=== PATIENT | male | born 1945 ===

== ENCOUNTER 2016-06-08 08:41 | Emergency (ER) | payer MEDICARE ==
[2016-06-08 08:41] VITALS: BMI 29.7
[2016-06-08 08:54] VITALS: O2SAT 98
[2016-06-08] MEDS ORDERED: Albuterol-Ipratrop 3 mg / 0.5 (3 ml) UD INH STA ×2 (09:09→10:42)
[2016-06-08] MEDS ORDERED: Albuterol-Ipratrop 3 mg / 0.5 (3 ml) UD ONE ×2 (09:25→10:55)
[2016-06-08 09:35] LABS: ABG ALLEN TEST POS; ARTERIAL BLOOD HGB O2 SAT 96.3 % (95.0-98.0); DRAW SITE RRA; HHB 2.5 % (0.0-5.0); METHEMOGLOBIN 0.2 % (0.0-3.0)
[2016-06-08 09:47] LABS: BASO # 0.1 K/uL (0.0-0.2); BASO % 0.6 % (0.0-2.0); EOS % 0.1 % (0.0-4.0); LYMPH # 0.4 K/uL (1.0-4.3); LYMPH % 3.5 % (20.0-40.0); MEAN CELL VOLUME 81.3 fL (80.0-94.0); MEAN CORPUSCULAR HEMOGLOBIN 25.3 pg (27.0-31.0); MEAN CORPUSCULAR HGB CONC 31.2 g/dL (33.0-37.0); MEAN PLATELET VOLUME 8.5 fL (7.2-11.7); MONO # 0.4 K/uL (0.0-0.8); MONO % 3.6 % (0.0-10.0); PLATELET COUNT 213 K/uL (130-400); RED CELL DISTRIBUTION WIDTH 16.2 % (11.5-14.5); WHITE BLOOD COUNT 12.4 K/uL (4.8-10.8)
--- NOTE | 2016-06-08 09:51 | RAD ---
PROCEDURE: CHEST RADIOGRAPH, 1 VIEW HISTORY: SOB COMPARISON: 11/10/2015 FINDINGS: LUNGS: Clear. PLEURA: No pneumothorax or pleural fluid seen. CARDIOVASCULAR: Normal. OSSEOUS STRUCTURES: No significant abnormalities. VISUALIZED UPPER ABDOMEN: Normal. OTHER FINDINGS: None. IMPRESSION: No active disease.
[2016-06-08 09:55] LABS: CHLORIDE 97 mmol/L (98-107); POTASSIUM 4.4 mmol/L (3.6-5.2); SODIUM 138 mmol/L (132-148)
[2016-06-08 09:57] LABS: AST/SGOT 23 U/L (17-59); BILIRUBIN,TOTAL 0.3 mg/dL (0.2-1.3); CARBON DIOXIDE 27 mmol/L (22-30); GFR AFRICAN-AMERICAN > 60
[2016-06-08 09:58] LABS: ALB/GLOB RATIO 1.4 (1.0-2.1); ALKALINE PHOSPHATASE 58 U/L (38-126); ALT/SGPT 31 U/L (21-72); BLOOD UREA NITROGEN 17 mg/dL (9-20); CALCIUM 8.6 mg/dl (8.6-10.4); GLUCOSE,RANDOM 192 mg/dL (75-110); TOTAL PROTEIN 6.7 g/dL (6.3-8.3)
[2016-06-08 10:04] LABS: NEUTROPHIL 86 % (50-75); REACTIVE LYMPHOCYTES 3 % (0-0); TOTAL CELLS COUNTED 100
--- NOTE | 2016-06-08 10:51 | C.PDOC ---
History Of Present Illness 70-year-old male, presents to the emergency department with complaints of worsening shortness of breath, wheezing and cough x3 days. Pt is using home O2 as needed. States she had one nebulizer treatment prior to arrival with minimal relief, resulting in her coming to the ED for evaluation. Time Seen by Provider: 06/08/16 09:05 Chief Complaint (Nursing): Shortness Of Breath History Per: Patient History/Exam Limitations: no limitations Onset/Duration Of Symptoms: Days Current Symptoms Are (Timing): Still Present Past Medical History Reviewed: Historical Data, Nursing Documentation, Vital Signs Vital Signs: Last Vital Signs Temp 98 F 06/08/16 11:32 Pulse 105 H 06/08/16 11:16 Resp 20 06/08/16 11:16 BP 125/68 06/08/16 11:16 Pulse Ox 98 06/08/16 11:16 - Medical History PMH: Anxiety (NO MED), Asthma, Bronchitis, CHF, COPD, Diabetes, Gastritis, HTN, Hypercholesterolemia Denies: Hypothyroidism, Chronic Kidney Disease Surgical History: Endoscopy Denies: Coronary Stent - [facility] Procedures ASSISTANCE WITH RESPIRATORY VENTILATION, 24-96 HRS, CPAP (02/23/15) CORONAR ARTERIOGR-2 CATH (12/28/12) LEFT HEART CARDIAC CATH (12/28/12) LT HEART ANGIOCARDIOGRAM (12/28/12) NEBULIZER THERAPY (02/17/13) NON-INVASIVE MECHANICAL VENTILATION (10/25/14) Family History: States: Unknown Family Hx - Social History Hx Tobacco Use: Yes Hx Alcohol Use: No Hx Substance Use: No - Immunization History Hx Tetanus Toxoid Vaccination: No Hx Influenza Vaccination: Yes Hx Pneumococcal Vaccination: Yes Review Of Systems Except As Marked, All Systems Reviewed And Found Negative. Constitutional: Negative for: Fever, Chills Respiratory: Negative for: Cough, Shortness of Breath Physical Exam - Physical Exam Appears: Non-toxic, No Acute Distress, Other (OBESE) Skin: Warm, Dry, No Rash Head: Atraumatic, Normacephalic Eye(s): bilateral: Normal Inspection, PERRL Nose: Normal Oral Mucosa: Moist Lips: Normal Appearing Neck: Normal ROM Chest: Symmetrical Cardiovascular: Rhythm Regular Respiratory: No Accessory Muscle Use, Rhonchi (scattered), Wheezing (diffuse) Extremity: Normal ROM, No Pedal Edema Neurological/Psych: Oriented x3, Normal Speech ED Course And Treatment - Laboratory Results Result Diagrams: 06/08/16 09:43 06/08/16 09:43 Lab Interpretation: Normal (abg wnl for COPD) ECG: Interpreted By Me ECG Rhythm: Sinus Rhythm, Sinus Tachycardia ECG Interpretation: Abnormal Rate From EC O2 Sat by Pulse Oximetry: 98 Pulse Ox Interpretation: Normal - Radiology CXR: Interpreted by Me CXR Interpretation: Yes: No Acute Disease, Other (hyperinflation) Reevaluation Time: 10:51 Reassessment Condition: Improved Medical Decision Making Medical Decision Making: self-administering albuterol TID, encouraged to increase to 2 amps of Duoneb Q3- 4 hours. lungs clear on CXR, abg wnl, adamantly refuses inpatient treatment. has f/u with Dr. Palomino already scheduled in 3 days. long prednisone taper, azithromycin started in ED Disposition Doctor Will See Patient In The: Office Counseled Patient/Family Regarding: Studies Performed, Diagnosis - Disposition Referrals: Romero Palomino MD [Staff Provider] - Sofie Odom MD [Staff Provider] - Disposition: HOME/ ROUTINE Disposition Time: 10:55 Condition: GOOD Additional Instructions: Take prednisone 60 mg daily for 4 days until you follow-up with Dr. Candelario Ennis nebulizer treatments with TWO ampules of Duoneb every 3-4 hours while home. Azithromycin 250 mg daily for 4 days- you received 500 mg in the ED Return to the ED if your symptoms worsten. Prescriptions: Prednisone [Deltasone] 40 mg PO DAILY #8 tablet Albuterol/Ipratropium [Duoneb 3 MG/3 Ml-0.5 MG/3 Ml 3 Ml] 6 ml IH Q4H PRN #100 neb PRN Reason: asthma Famotidine [Pepcid] 20 mg PO HS #20 tab Azithromycin [Zithromax] 250 mg PO DAILY #4 tab Instructions: COPD (Chronic Obstructive Pulmonary Disease) (ED) - Clinical Impression Clinical Impression: COPD exacerbation - Scribe Statement The provider has reviewed the documentation as recorded by the Scribe Stacy Leach All medical record entries made by the Scribe were at my direction and personally dictated by me. I have reviewed the chart and agree that the record accurately reflects my personal performance of the history, physical exam, medical decision making, and the department course for this patient. I have also personally directed, reviewed, and agree with the discharge instructions and disposition.
[2016-06-08 11:17] VITALS: BP 125/68; PULSE 105; RESP 20
[2016-06-08 11:32] VITALS: TEMP 98
--- NOTE | 2016-06-09 11:42 | CARD ---
APPROVED REPORT EKG Measurement Heart [id number] <Conclusion> Sinus tachycardia Otherwise normal ECG
== END 2016-06-08 11:56 | disposition home or self-care (01) ==
LOC: C.ER 08:41
DX: J44.1 Chronic obstructive pulmonary disease with (acute) exacerbation (principal)
CPT/HCPCS: 36600; 71010; 80053; 82803; 83880; 84484; 85025; 93005; 94640; 96374; 99284; J2930

== ENCOUNTER 2018-03-28 10:50 | Inpatient (IN) | payer MEDICARE ==
[2018-03-28 10:50] VITALS: BMI 29.7
[2018-03-28] MEDS ORDERED: Albuterol-Ipratrop 3 mg / 0.5 (3 ml) UD ONE ×3 (11:30→23:07)
[2018-03-28] MEDS ORDERED: Albuterol 0.083% Inhal Sol (2.5 mg/3 mL) UD IH STA ×2 (11:37→14:29)
--- NOTE | 2018-03-28 11:58 | C.PDOC ---
History Of Present Illness 72 y/o male,w/PMhx of asthma,CHF, and COPD, presents to the ER complaining of non-productive cough, shortness of breath, wheezing,and chest tightness, which has been present for the past 3 days. Patient is also complaining of abdominal distention for the past 3 days. Denies having fever, chills, vomiting, diarrhea, and dysuria. Time Seen by Provider: 03/28/18 11:03 Chief Complaint (Nursing): Shortness Of Breath History Per: Patient History/Exam Limitations: no limitations Onset/Duration Of Symptoms: Days Current Symptoms Are (Timing): Still Present Severity: Moderate Past Medical History Reviewed: Historical Data, Nursing Documentation, Vital Signs - Medical History PMH: Anxiety, Asthma, Bronchitis, CHF, COPD, Diabetes, Gastritis, HTN, Hypercholesterolemia Denies: Hypothyroidism, Chronic Kidney Disease Surgical History: Endoscopy Denies: Coronary Stent - [facility] Procedures ASSISTANCE WITH RESPIRATORY VENTILATION, 24-96 HRS, CPAP (02/23/15) CORONAR ARTERIOGR-2 CATH (12/28/12) LEFT HEART CARDIAC CATH (12/28/12) LT HEART ANGIOCARDIOGRAM (12/28/12) NEBULIZER THERAPY (02/17/13) NON-INVASIVE MECHANICAL VENTILATION (10/25/14) Family History: States: No Known Family Hx - Social History Hx Tobacco Use: Yes Hx Alcohol Use: No Hx Substance Use: No - Immunization History Hx Tetanus Toxoid Vaccination: No Hx Influenza Vaccination: Yes Hx Pneumococcal Vaccination: Yes Review Of Systems Except As Marked, All Systems Reviewed And Found Negative. Constitutional: Negative for: Fever, Chills Respiratory: Positive for: Cough, Shortness of Breath, Wheezing Gastrointestinal: Positive for: Other (abdominal distention). Negative for: Nausea, Vomiting Genitourinary: Negative for: Dysuria, Hematuria Physical Exam - Physical Exam Appears: Other (speaking in full sentences) Skin: Normal Color, Warm, Dry Head: Atraumatic, Normacephalic Eye(s): bilateral: Normal Inspection Nose: Normal Oral Mucosa: Moist Neck: Supple Chest: Symmetrical Cardiovascular: Rhythm Regular (with tachycardia) Respiratory: No Rales, No Rhonchi, Wheezing (mild bilateral expiratory wheezing) Gastrointestinal/Abdominal: Soft, No Tenderness, Distention (mild distention), No Guarding, No Rebound, Other (obese) Neurological/Psych: Oriented x3, Normal Speech ED Course And Treatment - Laboratory Results Result Diagrams: 03/28/18 12:16 03/28/18 12:16 ECG: Interpreted By Me, Viewed By Me ECG Rhythm: Sinus Tachycardia Interpretation Of ECG: Sinus Tachycardia with normal axises, Q waves in Leads I, II,III, and AVF, no acute ST or T wave changes Rate From EC - CT Scan/US ct abd/pelvis Other Rad Studies (CT/US): Read By Radiologist, Radiology Report Reviewed CT/US Interpretation: Accession No. : [id number]. Patient Name / ID : MIKEY CALLAHAN / [id number]. Exam Date : 03/28/2018 14:59:07 ( Approved ). Study Comment : Sex / Age : M / 72Y. Creator : Rosa Morel. Dictator : Shabnam Burns MD. Fitness Instructor : Rd Mechanical Engineer : Shabnam Burns MD. Approver2 : Report Date : 03/28/2018 15:07:56. My Comment : . Date of service: 03/28/2018. CT chest, abdomen, and pelvis without IV contrast. Indication: SOB, ABDOMINAL DISTENSION. Technique: Contiguous axial images of the chest, abdomen, and pelvis without oral or IV contrast. Coronal and Sagittal reformats generated and reviewed. This CT exam was performed using 1 or more of the following dose reduction techniques: Automated exposure control, adjustment of the MAA and/or kV according to patient size, and/or use of iterative reconstruction technique. Radiation dose: Total exam DLP = 1069.94 MGy-cm. Comparison: CT abdomen and pelvis without contrast performed 12/12/19, CTA chest performed 02/24/16. Findings: Visualized portions of the inferior thyroid gland appear unremarkable. The unenhanced mediastinal and hilar vascular structures appear grossly unremarkable. The heart appears within normal limits of size. Dense coronary artery calcifications. Atherosclerotic calcifications of the aorta. Emphysematous changes. Mild bibasilar atelectasis. No pleural effusion. No pneumothorax. Punctate right lower lobe calcified granuloma. Hypoattenuation of the liver compatible with hepatic steatosis. The noncontrast spleen, kidneys, pancreas, adrenal glands, and gallbladder appear unremarkable. The stomach is nondistended. Lack of oral contrast limits evaluation for bowel pathology. The bowel loops appear within normal limits of caliber without evidence of intestinal obstruction. Diverticulosis without CT evidence of acute diverticulitis. The there is no definite free air. The prostate gland measures approximately 3.8 x 3.1 cm. The urinary bladder appears unremarkable. Small fat containing bilateral hernias. Degenerative changes. Mild scoliosis of the lumbar spine convex to the left. Bilateral L5 spondylolysis. Impression: Emphysematous changes. Bibasilar atelectasis. Hypoattenuation of the liver compatible with hepatic steatosis. Extensive diverticulosis without CT evidence of acute diverticulitis. Small fat co ntaining bilateral inguinal hernias. Bilateral L5 spondylolysis. Additional findings as above. Progress Note: Labs, CT-Chest& Abd, X-Ray- Abd Obs Series ordered. Patient brittany ated with Albuterol, Decadron IM, and Solu-Medrol IV. Disposition - Disposition - Scribe Statement The provider has reviewed the documentation as recorded by the Vince Bertrand Provider Attestation: All medical record entries made by the Scribe were at my direction and persona lly dictated by me. I have reviewed the chart and agree that the record accurately reflects my personal performance of the history, physical exam, medical decision making, and the department course for this patient. I have also personally directed, reviewed, and agree with the discharge instructions and disposition.
[2018-03-28] MEDS ORDERED: Dexamethasone 4 mg/1 ml IM STA (12:00)
[2018-03-28] MEDS ORDERED: Albuterol 0.083% Inhal Sol (2.5 mg/3 mL) UD ONE ×2 (12:02→14:45)
--- NOTE | 2018-03-28 12:14 | RAD ---
Date of service: 03/28/2018 PROCEDURE: Radiographs of the chest and abdomen (obstructive series) HISTORY: Shortness of breath and abdominal distension. COMPARISON: No prior. TECHNIQUE: AP radiograph of the chest, with upright and supine radiographs of the abdomen. FINDINGS: CHEST: Lungs: Clear. Cardiovascular: Normal size heart. No pulmonary vascular congestion. No aortic atherosclerotic calcification present Pleura: No pleural fluid. No pneumothorax. Other findings: None. ABDOMEN AND PELVIS: Bowel: Constipation without fecal impaction or obstruction. Free air: None. Bones: Unremarkable. Other findings: None. IMPRESSION: No acute findings related to/ accounting for the clinical presentation.
[2018-03-28 12:19] LABS: BASO % 0.2 % (0.0-2.0); HEMOGLOBIN 11.8 g/dL (12.0-18.0); LYMPH # 0.3 K/uL (1.0-4.3); LYMPH % 2.3 % (20.0-40.0); MEAN CELL VOLUME 81.9 fL (80.0-94.0); MEAN CORPUSCULAR HEMOGLOBIN 25.7 pg (27.0-31.0); MEAN CORPUSCULAR HGB CONC 31.4 g/dL (33.0-37.0); MEAN PLATELET VOLUME 8.2 fL (7.2-11.7); MONO # 0.5 K/uL (0.0-0.8); MONO % 4.3 % (0.0-10.0); NEUT # 11.2 K/uL (1.8-7.0); NEUT % 93.2 % (50.0-75.0); PLATELET COUNT 280 K/uL (130-400); RBC 4.59 Mil/uL (4.40-5.90); RED CELL DISTRIBUTION WIDTH 17.7 % (11.5-14.5); WHITE BLOOD COUNT 12.1 K/uL (4.8-10.8)
[2018-03-28 12:33] LABS: ALB/GLOB RATIO 1.8 (1.0-2.1); ALBUMIN 4.3 g/dL (3.5-5.0); ALT/SGPT 47 U/L (21-72); AST/SGOT 32 U/L (17-59); BLOOD UREA NITROGEN 18 mg/dL (9-20); CALCIUM 8.7 mg/dl (8.6-10.4); GFR NON-AFRICAN AMERICAN > 60
[2018-03-28 12:39] LABS: LYMPHOCYTE 4 % (20-40); MONOCYTE 5 % (0-10); MYELOCYTE 1 % (0-0); NEUTROPHIL 90 % (50-75); PLATELET ESTIMATE NORMAL (NORMAL); TOTAL CELLS COUNTED 100
[2018-03-28 12:40] LABS: ANISOCYTOSIS SLIGHT; HYPOCHROMIC SLIGHT; OVALOCYTES SLIGHT; POIKILOCYTOSIS SLIGHT
[2018-03-28 12:44] LABS: B-TYPE NATRIURETIC PEPTIDE 101 pg/mL (0-900)
[2018-03-28] MEDS ORDERED: Albuterol-Ipratrop 3 mg / 0.5 (3 ml) UD INH STA (14:30)
--- NOTE | 2018-03-28 16:24 | CT ---
Date of service: 03/28/2018 CT chest, abdomen, and pelvis without IV contrast Indication: SOB, ABDOMINAL DISTENSION Technique: Contiguous axial images of the chest, abdomen, and pelvis without oral or IV contrast. Coronal and Sagittal reformats generated and reviewed. This CT exam was performed using 1 or more of the following dose reduction techniques: Automated exposure control, adjustment of the MAA and/or kV according to patient size, and/or use of iterative reconstruction technique. Radiation dose: Total exam DLP = 1069.94 MGy-cm. Comparison: CT abdomen and pelvis without contrast performed 12/12/19, CTA chest performed 02/24/16 Findings: Visualized portions of the inferior thyroid gland appear unremarkable. The unenhanced mediastinal and hilar vascular structures appear grossly unremarkable. The heart appears within normal limits of size. Dense coronary artery calcifications. Atherosclerotic calcifications of the aorta. Emphysematous changes. Mild bibasilar atelectasis. No pleural effusion. No pneumothorax. Punctate right lower lobe calcified granuloma. Hypoattenuation of the liver compatible with hepatic steatosis. The noncontrast spleen, kidneys, pancreas, adrenal glands, and gallbladder appear unremarkable. The stomach is nondistended. Lack of oral contrast limits evaluation for bowel pathology. The bowel loops appear within normal limits of caliber without evidence of intestinal obstruction. Diverticulosis without CT evidence of acute diverticulitis. The there is no definite free air. The prostate gland measures approximately 3.8 x 3.1 cm. The urinary bladder appears unremarkable. Small fat containing bilateral hernias. Degenerative changes. Mild scoliosis of the lumbar spine convex to the left. Bilateral L5 spondylolysis. Impression: Emphysematous changes. Bibasilar atelectasis. Hypoattenuation of the liver compatible with hepatic steatosis. Extensive diverticulosis without CT evidence of acute diverticulitis. Small fat containing bilateral inguinal hernias. Bilateral L5 spondylolysis. Additional findings as above.
[2018-03-28 17:05] LABS: URINE BILIRUBIN NEGATIVE (NEGATIVE); URINE BLOOD 1+ (NEGATIVE); URINE CLARITY Clear (Clear); URINE COLOR Yellow (YELLOW); URINE GLUCOSE (UA) 2+ mg/dL (Normal); URINE LEUKOCYTE ESTERASE NEG Leu/uL (Negative); URINE PROTEIN NEGATIVE (NEGATIVE); URINE UROBILINOGEN NORMAL mg/dL (0.2-1.0)
[2018-03-28] MEDS: Albuterol-Ipratrop 3 mg / 0.5 (3 ml) UD IH PRN (19:06)
[2018-03-28] MEDS: Azithromycin 500 MG in Sodium Chloride 0.9% 250 ML IVPB SCH (19:45)
[2018-03-28] MEDS: guaiFENesin 600 mg ER Tab PO SCH (19:45)
--- NOTE | 2018-03-28 20:39 | CP.PCM.HP ---
Present on Admission - Present on Admission Any Indicators Present on Admission: Yes History of Uncontrolled Diabetes: Yes Past Patient History - Infectious Disease Hx of Infectious Diseases: None - Tetanus Immunizations Tetanus Immunization: Unknown - Past Medical History & Family History Past Medical History?: Yes - Past Social History Smoking Status: Former Smoker - CARDIAC Hx Congestive Heart Failure: Yes Hx Hypercholesterolemia: Yes Hx Hypertension: Yes - PULMONARY Hx Asthma: Yes Hx Bronchitis: Yes Hx Chronic Obstructive Pulmonary Disease (COPD): Yes - NEUROLOGICAL Hx Neurological Disorder: No - HEENT Hx HEENT Problems: No - RENAL Hx Chronic Kidney Disease: No - ENDOCRINE/METABOLIC Hx Hypothyroidism: No - HEMATOLOGICAL/ONCOLOGICAL Hx Blood Disorders: No - INTEGUMENTARY Hx Dermatological Problems: No - MUSCULOSKELETAL/RHEUMATOLOGICAL Hx Musculoskeletal Disorders: No - GASTROINTESTINAL Hx Gastritis: Yes - GENITOURINARY/GYNECOLOGICAL Hx Genitourinary Disorders: No - PSYCHIATRIC Hx Anxiety: Yes Hx Substance Use: No - SURGICAL HISTORY Hx Coronary Stent: No - ANESTHESIA Hx Anesthesia: Yes Hx Anesthesia Reactions: No Hx Malignant Hyperthermia: No Meds Allergies/Adverse Reactions: Allergies Allergy/AdvReac Type Severity Reaction Status Date / Time SEASONAL Allergy Uncoded 06/08/16 08:47 Results - Vital Signs Recent Vital Signs: Last Vital Signs Temp 97.3 F L 03/28/18 16:48 Pulse 110 H 03/28/18 19:34 Resp 24 03/28/18 19:34 BP 141/62 03/28/18 19:34 Pulse Ox 94 L 03/28/18 19:34 - Labs Result Diagrams: 03/28/18 12:16 03/28/18 12:16 Labs: Laboratory Results - last 24 hr 03/28/18 03/28/18 03/28/18 12:16 12:16 16:10 WBC 12.1 H RBC 4.59 Hgb 11.8 L Hct 37.6 MCV 81.9 MCH 25.7 L MCHC 31.4 L RDW 17.7 H Plt Count 280 MPV 8.2 Neut % (Auto) 93.2 H Lymph % (Auto) 2.3 L [place] % (Auto) 4.3 Eos % (Auto) 0.0 Baso % (Auto) 0.2 Neut # (Auto) 11.2 H Lymph # (Auto) 0.3 L [place] # (Auto) 0.5 Eos # (Auto) 0.0 Baso # (Auto) 0.0 Neutrophils % (Manual) 90 H Lymphocytes % (Manual) 4 L Monocytes % (Manual) 5 Myelocytes % 1 H Platelet Estimate Normal Hypochromasia (manual) Slight Poikilocytosis (manual Slight Anisocytosis (manual) Slight Ovalocytes Slight Sodium 138 Potassium 4.6 Chloride 99 Carbon Dioxide 29 Anion Gap 15 BUN 18 Creatinine 1.0 Est GFR ( Amer) > 60 Est GFR (Non-Af Amer) > 60 Random Glucose 252 H D Calcium 8.7 Total Bilirubin 0.4 AST 32 ALT 47 Alkaline Phosphatase 62 Total Creatine Kinase 242 H CK-MB (Mass) 1.70 Troponin I < 0.0120 NT-Pro-B Natriuret Pep 101 Total Protein 6.6 Albumin 4.3 Globulin 2.3 Albumin/Globulin Ratio 1.8 Urine Color Yellow Urine Clarity Clear Urine pH 6.0 Ur Specific [place] 1.016 Urine Protein Negative Urine Glucose (UA) 2+ H Urine Ketones Negative Urine Blood 1+ H Urine Nitrate Negative Urine Bilirubin Negative Urine Urobilinogen Normal Ur Leukocyte Esterase Neg Urine WBC (Auto) < 1 Urine RBC (Auto) 1
[2018-03-28] MEDS ORDERED: MethylPREDNISolone 40 mg Vial ONE ×2 (23:08→23:10)
[2018-03-28] MEDS: MethylPREDNISolone 40 mg Vial IV SCH (23:13)
[2018-03-28] MEDS: (Novolin R) Insulin Human Regular 100 units/ml vial SC SCH (23:16)
[2018-03-28] MEDS ORDERED: (Novolin R) Insulin Human Regular 100 units/ml vial ONE (23:19)
--- NOTE | 2018-03-29 06:21 | HP ---
CHIEF COMPLIANT: Shortness of breath for two days. HISTORY OF PRESENT ILLNESS: This is a 72-year-old male with history of COPD, type 2 diabetes, hypertension, and hyperlipidemia. He is compliant with his diet, medication, and followup. He is on home oxygen and nebulizer at home. He is being followed up by Dr. Shelton in [place], and he has been complaint up until three days ago, he started having progressively getting a worse cough, congestion, shortness of breath, and wheezing. He started to use his oxygen and nebulizer treatment with no response. Cough with productive of white sputum production. The patient is having difficulty bringing up sputum. He denies any fever, chills, or rigor. He has chest pain upon coughing. He has chest congestion. The patient also has some abdominal distention. However, he denies any fever, chills, or rigor. He denies any nausea, vomiting, or diarrhea. He denies any history of polyuria, polydipsia, or polyphagia. He denies any history of tingling, numbness, or paraesthesia of lower extremities. He denies any joint pain, hip pain, knee pain, or back pain. He denies any history of headache, dizziness, or vertigo. There is no history of sneezing. There is no history of trauma, fall, or loss of consciousness. No history of involuntary movements of the body. PAST MEDICAL HISTORY: COPD, hypertension, hypertensive heart disease, hypothyroidism, and hyperlipidemia. SOCIAL HISTORY: He is an ex-smoker, he quit in 1983. Non-ETOH user. CURRENT MEDICATIONS: He is on lot of medications including Norvasc, Singulair, Hyzaar, Amaryl, Pepcid, Lipitor, aspirin, DuoNeb, Stiolto Respimat inhaler spray, prednisone, omeprazole, Reglan, Xopenex, Bentyl, vitamin D3, , Zithromax, albuterol sulfate. PHYSICAL EXAMINATION: GENERAL: An elderly male who is in pulmonary distress with shortness of breath. VITAL SIGNS: Blood pressure 152/68, pulse 115, respiratory rate 20, and temperature 99.4. SKIN: Senile turgor. No bruises. No purpura. No petechiae. HEENT: Atraumatic, normocephalic. Negative pallor. Negative jaundice. Extraocular movements are intact. NECK: Supple, using accessory muscle for respiration. No JVD. No lymph node. No thyromegaly. CHEST WALL: Bilateral symmetrical expansion with barrel-shaped chest. No gynecomastia. No masses. LUNGS: Bilaterally decreased air entry. Inspiratory and expiratory rhonchi. CARDIOVASCULAR SYSTEM: PMI in the fifth intercostal space. S1 and S2 regular. Tachycardic. ABDOMEN: Soft, nontender. Bowel sounds are positive. RECTAL: Enlarged prostate. No masses. No bleeding. EXTREMITIES: positive clubbing. No cyanosis or edema. CENTRAL NERVOUS SYSTEM: Awake, alert, and oriented x3. Cranial nerves II through XII are normal. Power 5/5 x4. Plantars are downgoing. ASSESSMENT: 1. Acute exacerbation of chronic obstruction pulmonary disease. 2. Tracheobronchitis. 3. Gastritis versus abdominal pain. 4. Hypertension. PLAN: Admit. Detailed orders are written. The patient has been seen and examined. The patient will be followed up closely. Bob Bravo MD
[2018-03-29] MEDS ORDERED: Albuterol-Ipratrop 3 mg / 0.5 (3 ml) UD ONE ×2 (06:34→11:19)
[2018-03-29] MEDS: Albuterol-Ipratrop 3 mg / 0.5 (3 ml) UD IH PRN ×2 (06:54→09:33)
[2018-03-29] MEDS: (Novolin R) Insulin Human Regular 100 units/ml vial SC SCH ×4 (08:13→21:21)
[2018-03-29] MEDS ORDERED: (Novolin R) Insulin Human Regular 100 units/ml vial ONE ×2 (08:14→13:04)
--- NOTE | 2018-03-29 08:58 | CP.PCM.CON ---
<Rob Miranda - Last Filed: 03/29/18 18:13> History of Present Illness - History of Present Illness History of Present Illness: 72 year old male with a past medical history of hypothyroidism, hyperlipidemia, hypertension and copd presents to the hospital complaining of cough, congestion and shortness of breath for the past three days. Patient admits to white phlegm production in conjunction with the cough. Patient reports during this time having to use his Albuterol pump on average of three times a day. Patient states his normal is usually once a day. Patient does admit to improvement in symptoms after using the albuterol pump, however its only a momentary improvement. Patient also report dyspnea on walking in the street. Patient denies any orthopnea, chest pain, headaches, dizziness, syncopal episodes, abdominal pain, recent sick contacts, or any other complaints. Medical history:copd, hypertension, hyperlipidemia, hypothyroidism Allergies: Seasonal Surgical history:Endoscopy, 2 Cardiac Caths (both in 2012 showing 60% stenosis of circumflex artery) Social history: Former smoker (Quit in 1983). Denies alcohol use. Denies illicit drug use. PMD: Dr. Shelton Personnel Manager: Dr. Shelton Pulmonary:Dr. Palomino Review of Systems - Constitutional Constitutional: absent: Daytime Sleepiness, Increased Appetite, Weight Loss - EENT Eyes: absent: Blurred Vision, Change in Vision, Discharge, Exophthalmos, Floaters, Loss of Peripheral Vision, Other Visual Disturbances Ears: absent: Ear Discharge, Ear Pain Nose/Mouth/Throat: Nasal Congestion. absent: Nasal Discharge, Nose Pain, Sinus Pain, Change in Voice, Mouth Lesions, Mouth Pain, Sore Throat, Neck Pain, Neck Mass - Cardiovascular Cardiovascular: absent: Chest Pain, Dyspnea, Pain Radiating to Arm/Neck/Jaw, Palpitations, Slow Heart Rate - Respiratory Respiratory: Cough, Chest Congestion, Change in Mucous Color. absent: Hemoptysis, Stridor, Pain with Coughing - Gastrointestinal Gastrointestinal: absent: Belching, Coffee Ground Emesis, Early Satiety, Loose Stools - Genitourinary Genitourinary: absent: Difficulty Urinating, Urinary Incontinence - Musculoskeletal Musculoskeletal: absent: Arthralgias, Atrophy, Muscle Cramps, Radiating Pain into Limb - Integumentary Integumentary: absent: Bleeding Lesions, Dry Skin, Sores, Striae, Swelling - Neurological Neurological: absent: Abnormal Hearing, Confusion, Focal Weakness, Paresthesias, Radicular Pain, Vertigo, Weakness - Psychiatric Psychiatric: absent: Anhedonia, Anxiety, Confusion, Paranoia, Suicidal Ideation - Endocrine Endocrine: absent: Change in Libido, Fatigue, Palpitations, Polydipsia - Hematologic/Lymphatic Hematologic: absent: Easy Bleeding, Easy Bruising Past Patient History - Infectious Disease Hx of Infectious Diseases: None - Tetanus Immunizations Tetanus Immunization: Unknown - Past Medical History & Family History Past Medical History?: Yes - Past Social History Smoking Status: Former Smoker - CARDIAC Hx Congestive Heart Failure: Yes Hx Hypercholesterolemia: Yes Hx Hypertension: Yes - PULMONARY Hx Asthma: Yes Hx Bronchitis: Yes Hx Chronic Obstructive Pulmonary Disease (COPD): Yes - NEUROLOGICAL Hx Neurological Disorder: No - HEENT Hx HEENT Problems: No - RENAL Hx Chronic Kidney Disease: No - ENDOCRINE/METABOLIC Hx Hypothyroidism: No - HEMATOLOGICAL/ONCOLOGICAL Hx Blood Disorders: No - INTEGUMENTARY Hx Dermatological Problems: No - MUSCULOSKELETAL/RHEUMATOLOGICAL Hx Musculoskeletal Disorders: No - GASTROINTESTINAL Hx Gastritis: Yes - GENITOURINARY/GYNECOLOGICAL Hx Genitourinary Disorders: No - PSYCHIATRIC Hx Anxiety: Yes Hx Substance Use: No - SURGICAL HISTORY Hx Coronary Stent: No - ANESTHESIA Hx Anesthesia: Yes Hx Anesthesia Reactions: No Hx Malignant Hyperthermia: No Meds Allergies/Adverse Reactions: Allergies Allergy/AdvReac Type Severity Reaction Status Date / Time SEASONAL Allergy Uncoded 06/08/16 08:47 - Medications Medications: Current Medications Albuterol/Ipratropium (Duoneb 3 Mg/0.5 Mg (3 Ml) Ud) 6 ml IH RQ4 PRN PRN Reason: asthma Last Admin: 03/29/18 06:54 Dose: 6 ml Aspirin (Ecotrin) 81 mg PO DAILY [facility] Enoxaparin Sodium (Lovenox) 40 mg SC DAILY [facility] Famotidine (Pepcid) 20 mg PO HS [facility] Last Admin: 03/28/18 23:13 Dose: 20 mg Glimepiride (Amaryl) 2 mg PO ACBD [facility] Last Admin: 03/29/18 08:29 Dose: 2 mg Guaifenesin (Mucinex La) 600 mg PO BID [facility] Last Admin: 03/28/18 19:45 Dose: 600 mg Hydrochlorothiazide (Microzide) 12.5 mg PO DAILY [facility] Ceftriaxone Sodium 1 gm/ (Sodium Chloride) 100 mls @ 100 mls/hr IVPB DAILY [facility]; Protocol Azithromycin 500 mg/ Sodium (Chloride) 250 mls @ 250 mls/hr IVPB Q24H [facility]; Protocol Last Admin: 03/28/18 19:45 Dose: 250 mls/hr Insulin Human Regular (Novolin R) 0 unit SC ACHS [facility]; Protocol Last Admin: 03/29/18 08:13 Dose: 3 units Losartan Potassium (Cozaar) 100 mg PO DAILY [facility] Methylprednisolone (Solu-Medrol) 40 mg IV Q12 [facility] Last Admin: 03/28/18 23:13 Dose: 40 mg Montelukast Sodium (Singulair) 10 mg PO DAILY [facility] Rosuvastatin Calcium (Crestor) 5 mg PO HS [facility] Last Admin: 03/28/18 23:13 Dose: 5 mg Physical Exam - Head Exam Head Exam: ATRAUMATIC, NORMAL INSPECTION - Eye Exam Eye Exam: EOMI, Normal appearance, PERRL. absent: Scleral icterus Pupil Exam: NORMAL ACCOMODATION, PERRL - ENT Exam ENT Exam: Mucous Membranes Moist, Normal Exam - Neck Exam Neck exam: Positive for: Normal Inspection - Respiratory Exam Respiratory Exam: Clear to Auscultation Bilateral, NORMAL BREATHING PATTERN. absent: Decreased Breath Sounds, Prolonged Expiratory Phase - Cardiovascular Exam Cardiovascular Exam: REGULAR RHYTHM, +S1, +S2 - GI/Abdominal Exam GI & Abdominal Exam: Normal Bowel Sounds, Soft. absent: Guarding, Mass, Tenderness - Neurological Exam Neurological exam: Alert, CN II-XII Intact, Oriented x3 - Psychiatric Exam Psychiatric exam: Normal Mood - Skin Skin Exam: Dry, Intact, Warm Results - Vital Signs Recent Vital Signs: Last Vital Signs Temp 98.3 F 03/29/18 07:38 Pulse 110 H 03/29/18 07:38 Resp 20 03/29/18 07:38 BP 103/64 03/29/18 07:38 Pulse Ox 90 L 03/29/18 07:38 - Labs Result Diagrams: 03/28/18 12:16 03/28/18 12:16 Labs: Laboratory Results - last 24 hr 03/28/18 03/28/18 03/28/18 12:16 12:16 16:10 WBC 12.1 H RBC 4.59 Hgb 11.8 L Hct 37.6 MCV 81.9 MCH 25.7 L MCHC 31.4 L RDW 17.7 H Plt Count 280 MPV 8.2 Neut % (Auto) 93.2 H Lymph % (Auto) 2.3 L Clarke % (Auto) 4.3 Eos % (Auto) 0.0 Baso % (Auto) 0.2 Neut # (Auto) 11.2 H Lymph # (Auto) 0.3 L Clarke # (Auto) 0.5 Eos # (Auto) 0.0 Baso # (Auto) 0.0 Neutrophils % (Manual) 90 H Lymphocytes % (Manual) 4 L Monocytes % (Manual) 5 Myelocytes % 1 H Platelet Estimate Normal Hypochromasia (manual) Slight Poikilocytosis (manual Slight Anisocytosis (manual) Slight Ovalocytes Slight Sodium 138 Potassium 4.6 Chloride 99 Carbon Dioxide 29 Anion Gap 15 BUN 18 Creatinine 1.0 Est GFR ( Amer) > 60 Est GFR (Non-Af Amer) > 60 POC Glucose (mg/dL) Random Glucose 252 H D Calcium 8.7 Total Bilirubin 0.4 AST 32 ALT 47 Alkaline Phosphatase 62 Total Creatine Kinase 242 H CK-MB (Mass) 1.70 Troponin I < 0.0120 NT-Pro-B Natriuret Pep 101 Total Protein 6.6 Albumin 4.3 Globulin 2.3 Albumin/Globulin Ratio 1.8 Urine Color Yellow Urine Clarity Clear Urine pH 6.0 Ur Specific [place] 1.016 Urine Protein Negative Urine Glucose (UA) 2+ H Urine Ketones Negative Urine Blood 1+ H Urine Nitrate Negative Urine Bilirubin Negative Urine Urobilinogen Normal Ur Leukocyte Esterase Neg Urine WBC (Auto) < 1 Urine RBC (Auto) 1 03/28/18 03/29/18 23:01 07:59 WBC RBC Hgb Hct MCV MCH MCHC RDW Plt Count MPV Neut % (Auto) Lymph % (Auto) Clarke % (Auto) Eos % (Auto) Baso % (Auto) Neut # (Auto) Lymph # (Auto) Clarke # (Auto) Eos # (Auto) Baso # (Auto) Neutrophils % (Manual) Lymphocytes % (Manual) Monocytes % (Manual) Myelocytes % Platelet Estimate Hypochromasia (manual) Poikilocytosis (manual Anisocytosis (manual) Ovalocytes Sodium Potassium Chloride Carbon Dioxide Anion Gap BUN Creatinine Est GFR ( Amer) Est GFR (Non-Af Amer) POC Glucose (mg/dL) 183 H 201 H Random Glucose Calcium Total Bilirubin AST ALT Alkaline Phosphatase Total Creatine Kinase CK-MB (Mass) Troponin I NT-Pro-B Natriuret Pep Total Protein Albumin Globulin Albumin/Globulin Ratio Urine Color Urine Clarity Urine pH Ur Specific [place] Urine Protein Urine Glucose (UA) Urine Ketones Urine Blood Urine Nitrate Urine Bilirubin Urine Urobilinogen Ur Leukocyte Esterase Urine WBC (Auto) Urine RBC (Auto) Assessment & Plan - Assessment and Plan (Free Text) Assessment: 72 year old male with a past medical history of hypothyroidism, hyperlipidemia, hypertension and copd presents to the hospital complaining of cough, congestion and shortness of breath for the past three days. Plan: 1. Shortness of breath Troponin(-)x1 BNP 101 on admission Chest/abdomen/pelvis ct: -Emphysematous changes. Bibasilar atelectasis.Hypoattenuation of the liver compatible with hepatic steatosis. Extensive diverticulosis without CT evidence of acute diverticulitis. Small fat containing bilateral inguinal hernias.Bilateral L5 spondylolysis. -Lexiscan in the A.M. pending pulmonary examination ( Will hold if patient is wheezing) -NPO after midnight. Medications: Duoneb 3ml INH RQ4 [facility] Solu-medrol 40mg IV Q12 [facility] Singulair 10mg PO Daily [facility] Azithromycin 500mg IVPB Q24 [facility] Ceftriaxone 1gm IVPB Daily [facility] Mucinex 600mg PO BID 2. DM -Amaryl 2mg PO ACBD [facility] -[facility] 3.Hyperlipidemia -Crestor 5mg PO HS [facility] PPX -Lovenox -Pepcid Plan discussed with Attending Dr. Koch. Rob Miranda PGY-2 <Raymundo Koch - Last Filed: 03/30/18 22:58> Meds - Medications Medications: Current Medications Albuterol/Ipratropium (Duoneb 3 Mg/0.5 Mg (3 Ml) Ud) 3 ml INH RQ4 [facility] Last Admin: 03/30/18 19:05 Dose: 3 ml Aspirin (Ecotrin) 81 mg PO DAILY [facility] Last Admin: 03/30/18 11:59 Dose: 81 mg Enoxaparin Sodium (Lovenox) 40 mg SC DAILY [facility] Last Admin: 03/30/18 11:59 Dose: 40 mg Famotidine (Pepcid) 20 mg PO HS [facility] Last Admin: 03/30/18 21:37 Dose: 20 mg Glimepiride (Amaryl) 2 mg PO ACBD [facility] Last Admin: 03/30/18 17:29 Dose: 2 mg Guaifenesin (Mucinex La) 600 mg PO BID [facility] Last Admin: 03/30/18 17:29 Dose: 600 mg Hydrochlorothiazide (Microzide) 12.5 mg PO DAILY [facility] Last Admin: 03/30/18 11:59 Dose: 12.5 mg Hydrocortisone (Cortizone 0.5% Cream) 1 applic TOP BID [facility] Last Admin: 03/30/18 19:11 Dose: 1 applic Ceftriaxone Sodium 1 gm/ (Sodium Chloride) 100 mls @ 100 mls/hr IVPB DAILY [facility]; Protocol Last Admin: 03/30/18 12:00 Dose: 100 mls/hr Azithromycin 500 mg/ Sodium (Chloride) 250 mls @ 250 mls/hr IVPB Q24H [facility]; Protocol Last Admin: 03/30/18 17:30 Dose: 250 mls/hr Insulin Human Regular (Novolin R) 0 unit SC ACHS [facility]; Protocol Last Admin: 03/30/18 21:29 Dose: Not Given Losartan Potassium (Cozaar) 100 mg PO DAILY [facility] Last Admin: 03/30/18 11:58 Dose: 100 mg Methylprednisolone (Solu-Medrol) 40 mg IV Q12 [facility] Last Admin: 03/30/18 21:37 Dose: 40 mg Montelukast Sodium (Singulair) 10 mg PO DAILY [facility] Last Admin: 03/30/18 11:58 Dose: 10 mg Rosuvastatin Calcium (Crestor) 5 mg PO HS [facility] Last Admin: 03/30/18 21:37 Dose: 5 mg Results - Vital Signs Recent Vital Signs: Last Vital Signs Temp 98 F 03/30/18 16:00 Pulse 114 H 03/30/18 20:39 Resp 20 03/30/18 16:00 BP 135/77 03/30/18 16:00 Pulse Ox 95 03/30/18 16:00 - Labs Result Diagrams: 03/28/18 12:16 03/28/18 12:16 Labs: Laboratory Results - last 24 hr 03/30/18 03/30/18 03/30/18 06:28 11:26 15:57 POC Glucose (mg/dL) 211 H 201 H 333 H 03/30/18 21:28 POC Glucose (mg/dL) 118 H Assessment & Plan - Assessment and Plan (Free Text) Plan: Patient seen and evaluated personally by me. Plan of care d/w the emergency medical technician and as documented
[2018-03-29] MEDS: Enoxaparin 40 mg Syringe SC SCH (11:01)
[2018-03-29] MEDS: Albuterol-Ipratrop 3 mg / 0.5 (3 ml) UD INH SCH ×3 (11:10→19:17)
[2018-03-29] MEDS: MethylPREDNISolone 40 mg Vial IV SCH ×2 (11:28→21:47)
[2018-03-29] MEDS: guaiFENesin 600 mg ER Tab PO SCH ×2 (11:31→17:40)
[2018-03-29] MEDS ORDERED: Albuterol-Ipratrop 3 mg / 0.5 (3 ml) UD IH SCH (12:00)
--- NOTE | 2018-03-29 16:24 | CP.PCM.PN ---
Subjective - Date & Time of Evaluation Date of Evaluation: 03/29/18 Time of Evaluation: 11:45 - Subjective Subjective: Reason for Consult: COPD Exacerbation Patient is a 72 year old male with PMH of COPD, HTN, who presented to ED for shortness of breath for two days, as well as a worsening productive cough. Patient seen and examined at bedside. Patient stated that shortness of breath and congestion have improved. Cough is nonproductive and also improving. Patient denied fever, chills, nausea, vomiting. Exam Gen: alert and awake and oriented x3, no acute distress Cardio: RRR, no murmur Pulm: CTA bilaterally, no accessory muscle use GI: soft, nontender A and P 1. COPD exacerbation -Chest CT 03/28/18: emphysematous changes, bibasilar atelectasis - Continue Duoneb 3ml RQ6 -Continue Guaifenesin 600mg BID -Continue Solu-medrol 40mg q12 -Continue Singulair 10mg daily - Continue Azithromycin, Ceftriazone Objective - Vital Signs/Intake and Output Vital Signs (last 24 hours): Temp Pulse Resp BP Pulse Ox 98.1 F 74 20 140/81 94 L 03/29/18 16:04 03/29/18 16:04 03/29/18 16:04 03/29/18 16:04 03/29/18 16:04 - Medications Medications: Current Medications Albuterol/Ipratropium (Duoneb 3 Mg/0.5 Mg (3 Ml) Ud) 3 ml INH RQ4 [facility] Last Admin: 03/29/18 16:06 Dose: 3 ml Aspirin (Ecotrin) 81 mg PO DAILY [facility] Last Admin: 03/29/18 11:30 Dose: 81 mg Enoxaparin Sodium (Lovenox) 40 mg SC DAILY [facility] Last Admin: 03/29/18 11:01 Dose: 40 mg Famotidine (Pepcid) 20 mg PO HS [facility] Last Admin: 03/28/18 23:13 Dose: 20 mg Glimepiride (Amaryl) 2 mg PO ACBD [facility] Last Admin: 03/29/18 08:29 Dose: 2 mg Guaifenesin (Mucinex La) 600 mg PO BID [facility] Last Admin: 03/29/18 11:31 Dose: Not Given Hydrochlorothiazide (Microzide) 12.5 mg PO DAILY [facility] Last Admin: 03/29/18 11:30 Dose: 12.5 mg Hydrocortisone (Cortizone 0.5% Cream) 1 applic TOP BID [facility] Ceftriaxone Sodium 1 gm/ (Sodium Chloride) 100 mls @ 100 mls/hr IVPB DAILY [facility]; Protocol Last Admin: 03/29/18 11:01 Dose: 100 mls/hr Azithromycin 500 mg/ Sodium (Chloride) 250 mls @ 250 mls/hr IVPB Q24H [facility]; Protocol Last Admin: 03/28/18 19:45 Dose: 250 mls/hr Insulin Human Regular (Novolin R) 0 unit SC ACHS [facility]; Protocol Last Admin: 03/29/18 13:12 Dose: 4 units Losartan Potassium (Cozaar) 100 mg PO DAILY [facility] Last Admin: 03/29/18 10:55 Dose: 100 mg Methylprednisolone (Solu-Medrol) 40 mg IV Q12 [facility] Last Admin: 03/29/18 11:28 Dose: 40 mg Montelukast Sodium (Singulair) 10 mg PO DAILY [facility] Last Admin: 03/29/18 11:30 Dose: 10 mg Rosuvastatin Calcium (Crestor) 5 mg PO HS [facility] Last Admin: 03/28/18 23:13 Dose: 5 mg - Labs Labs: 03/28/18 12:16 03/28/18 12:16
[2018-03-29] MEDS: Azithromycin 500 MG in Sodium Chloride 0.9% 250 ML IVPB SCH (17:54)
--- NOTE | 2018-03-29 20:36 | CARD ---
APPROVED REPORT Date of service: 03/28/2018 EKG Measurement Heart [id number] <Conclusion> Sinus tachycardia Otherwise normal ECG
--- NOTE | 2018-03-29 21:23 | CP.PCM.PN ---
Subjective - Date & Time of Evaluation Date of Evaluation: 03/29/18 Time of Evaluation: 17:00 - Subjective Subjective: dictated Objective - Vital Signs/Intake and Output Vital Signs (last 24 hours): Temp Pulse Resp BP Pulse Ox 98.1 F 74 20 140/81 94 L 03/29/18 16:04 03/29/18 16:04 03/29/18 16:04 03/29/18 16:04 03/29/18 16:04 - Medications Medications: Current Medications Albuterol/Ipratropium (Duoneb 3 Mg/0.5 Mg (3 Ml) Ud) 3 ml INH RQ4 [facility] Last Admin: 03/29/18 19:17 Dose: 3 ml Aspirin (Ecotrin) 81 mg PO DAILY [facility] Last Admin: 03/29/18 11:30 Dose: 81 mg Enoxaparin Sodium (Lovenox) 40 mg SC DAILY [facility] Last Admin: 03/29/18 11:01 Dose: 40 mg Famotidine (Pepcid) 20 mg PO HS [facility] Last Admin: 03/28/18 23:13 Dose: 20 mg Glimepiride (Amaryl) 2 mg PO ACBD [facility] Last Admin: 03/29/18 17:40 Dose: 2 mg Guaifenesin (Mucinex La) 600 mg PO BID [facility] Last Admin: 03/29/18 17:40 Dose: 600 mg Hydrochlorothiazide (Microzide) 12.5 mg PO DAILY [facility] Last Admin: 03/29/18 11:30 Dose: 12.5 mg Hydrocortisone (Cortizone 0.5% Cream) 1 applic TOP BID [facility] Last Admin: 03/29/18 17:53 Dose: 1 % Ceftriaxone Sodium 1 gm/ (Sodium Chloride) 100 mls @ 100 mls/hr IVPB DAILY [facility]; Protocol Last Admin: 03/29/18 11:01 Dose: 100 mls/hr Azithromycin 500 mg/ Sodium (Chloride) 250 mls @ 250 mls/hr IVPB Q24H [facility]; Protocol Last Admin: 03/29/18 17:54 Dose: 250 mls/hr Insulin Human Regular (Novolin R) 0 unit SC ACHS [facility]; Protocol Last Admin: 03/29/18 21:21 Dose: Not Given Losartan Potassium (Cozaar) 100 mg PO DAILY [facility] Last Admin: 03/29/18 10:55 Dose: 100 mg Methylprednisolone (Solu-Medrol) 40 mg IV Q12 [facility] Last Admin: 03/29/18 11:28 Dose: 40 mg Montelukast Sodium (Singulair) 10 mg PO DAILY [facility] Last Admin: 03/29/18 11:30 Dose: 10 mg Rosuvastatin Calcium (Crestor) 5 mg PO HS [facility] Last Admin: 03/28/18 23:13 Dose: 5 mg - Labs Labs: 03/28/18 12:16 03/28/18 12:16
[2018-03-30] MEDS: Albuterol-Ipratrop 3 mg / 0.5 (3 ml) UD INH SCH ×7 (03:29→23:42)
--- NOTE | 2018-03-30 03:41 | PN ---
DATE: 03/29/2018 SUBJECTIVE: The patient is less short of breath. He is still coughing, wheezing, seen by Pulmonary. No nausea, vomiting. No fever. No chills. PHYSICAL EXAMINATION: VITAL SIGNS: Blood pressure 140/81, pulse 74, respiratory rate 20, temperature 98.1. LUNGS: Decreased air entry. Positive rhonchi. CARDIOVASCULAR SYSTEM: S1 and S2. Regular. ABDOMEN: Soft, nontender. Bowel sounds are positive. ASSESSMENT: 1. Exacerbation of chronic obstructive pulmonary disease. 2. Tracheobronchitis, rule out pneumonia. 3. Hypertension. PLAN: Medical management, Solu-Medrol, oxygen. Monitor the patient. Bob Bravo MD
[2018-03-30] MEDS: (Novolin R) Insulin Human Regular 100 units/ml vial SC SCH ×4 (07:23→21:29)
[2018-03-30] MEDS ORDERED: Caffeine Citrated **INJ** 20 MG/ML IV ONE (07:25)
--- NOTE | 2018-03-30 09:56 | CP.PCM.PN ---
<[place] - Last Filed: 03/30/18 18:22> Subjective - Date & Time of Evaluation Date of Evaluation: 03/30/18 Time of Evaluation: 09:56 - Subjective Subjective: Cardiology Service: Dr. Koch Patient seen and examined at bedside. Per nursing no acute events occurred overnight. Patient denies any chest pain, abdominal pain, fevers, chills,headaches, dizziness, syncopal episodes, or any other complaints. Objective - Vital Signs/Intake and Output Vital Signs (last 24 hours): Temp Pulse Resp BP Pulse Ox 98.1 F 21 L 20 151/83 H 95 03/29/18 23:28 03/29/18 23:35 03/29/18 23:28 03/29/18 23:28 03/29/18 23:28 Intake and Output: 03/30/18 03/30/18 06:59 18:59 Output Total 600 Balance -600 - Medications Medications: Current Medications Albuterol/Ipratropium (Duoneb 3 Mg/0.5 Mg (3 Ml) Ud) 3 ml INH RQ4 [facility] Last Admin: 03/30/18 08:07 Dose: 3 ml Aspirin (Ecotrin) 81 mg PO DAILY [facility] Last Admin: 03/29/18 11:30 Dose: 81 mg Enoxaparin Sodium (Lovenox) 40 mg SC DAILY [facility] Last Admin: 03/29/18 11:01 Dose: 40 mg Famotidine (Pepcid) 20 mg PO HS [facility] Last Admin: 03/29/18 21:47 Dose: 20 mg Glimepiride (Amaryl) 2 mg PO ACBD [facility] Last Admin: 03/30/18 07:23 Dose: Not Given Guaifenesin (Mucinex La) 600 mg PO BID [facility] Last Admin: 03/29/18 17:40 Dose: 600 mg Hydrochlorothiazide (Microzide) 12.5 mg PO DAILY [facility] Last Admin: 03/29/18 11:30 Dose: 12.5 mg Hydrocortisone (Cortizone 0.5% Cream) 1 applic TOP BID [facility] Last Admin: 03/29/18 17:53 Dose: 1 % Ceftriaxone Sodium 1 gm/ (Sodium Chloride) 100 mls @ 100 mls/hr IVPB DAILY [facility]; Protocol Last Admin: 03/29/18 11:01 Dose: 100 mls/hr Azithromycin 500 mg/ Sodium (Chloride) 250 mls @ 250 mls/hr IVPB Q24H [facility]; Protocol Last Admin: 03/29/18 17:54 Dose: 250 mls/hr Insulin Human Regular (Novolin R) 0 unit SC ACHS [facility]; Protocol Last Admin: 03/30/18 07:23 Dose: Not Given Losartan Potassium (Cozaar) 100 mg PO DAILY [facility] Last Admin: 03/29/18 10:55 Dose: 100 mg Methylprednisolone (Solu-Medrol) 40 mg IV Q12 [facility] Last Admin: 03/29/18 21:47 Dose: 40 mg Montelukast Sodium (Singulair) 10 mg PO DAILY [facility] Last Admin: 03/29/18 11:30 Dose: 10 mg Rosuvastatin Calcium (Crestor) 5 mg PO HS [facility] Last Admin: 03/29/18 21:47 Dose: 5 mg - Labs Labs: 03/28/18 12:16 03/28/18 12:16 - Head Exam Head Exam: NORMAL INSPECTION - Eye Exam Eye Exam: EOMI, Normal appearance, PERRL Pupil Exam: NORMAL ACCOMODATION - ENT Exam ENT Exam: Mucous Membranes Moist, Normal Oropharynx - Respiratory Exam Respiratory Exam: Clear to Ausculation Bilateral, NORMAL BREATHING PATTERN. absent: Prolonged Expiratory Phase, Respiratory Distress - Cardiovascular Exam Cardiovascular Exam: +S1, +S2 - GI/Abdominal Exam GI & Abdominal Exam: Soft, Normal Bowel Sounds - Back Exam Back Exam: NORMAL INSPECTION - Neurological Exam Neurological Exam: Alert, Awake, Oriented x3 - Psychiatric Exam Psychiatric exam: Normal Affect, Normal Mood - Skin Skin Exam: Dry, Intact Assessment and Plan - Assessment and Plan (Free Text) Assessment: 72 year old male with a past medical history of hypothyroidism, hyperlipidemia, hypertension and copd presents to the hospital complaining of cough, congestion and shortness of breath for the past three days. Plan: Plan: 1. Shortness of breath Likely secondary to Pulmonary cause. Unlikely origin is Cardiac in nature. Medically optimize patient Troponin(-)x1 BNP 101 on admission Chest/abdomen/pelvis ct: -Emphysematous changes. Bibasilar atelectasis.Hypoattenuation of the liver compatible with hepatic steatosis. Extensive diverticulosis without CT evidence of acute diverticulitis. Small fat containing bilateral inguinal hernias.Bilateral L5 spondylolysis. -Stress test normal Medications: Duoneb 3ml INH RQ4 [facility] Solu-medrol 40mg IV Q12 [facility] Singulair 10mg PO Daily [facility] Azithromycin 500mg IVPB Q24 [facility] Ceftriaxone 1gm IVPB Daily [facility] Mucinex 600mg PO BID 2. DM -Amaryl 2mg PO ACBD [facility] -ISS -Aspirin 81mg po Daily 3.Hyperlipidemia -Crestor 5mg PO HS [facility] 4.Hypertension -Cozaar 100mg PO Daily [facility]X -Lovenox -Pepcid Plan discussed with Attending Dr. Koch. Rob Miranda PGY-2 <Raymundo Koch - Last Filed: 03/30/18 22:59> Objective - Vital Signs/Intake and Output Vital Signs (last 24 hours): Temp Pulse Resp BP Pulse Ox 98 F 114 H 20 135/77 95 03/30/18 16:00 03/30/18 20:39 03/30/18 16:00 03/30/18 16:00 03/30/18 16:00 Intake and Output: 03/30/18 03/31/18 18:59 06:59 Intake Total 650 Output Total 400 Balance 250 - Medications Medications: Current Medications Albuterol/Ipratropium (Duoneb 3 Mg/0.5 Mg (3 Ml) Ud) 3 ml INH RQ4 [facility] Last Admin: 03/30/18 19:05 Dose: 3 ml Aspirin (Ecotrin) 81 mg PO DAILY [facility] Last Admin: 03/30/18 11:59 Dose: 81 mg Enoxaparin Sodium (Lovenox) 40 mg SC DAILY [facility] Last Admin: 03/30/18 11:59 Dose: 40 mg Famotidine (Pepcid) 20 mg PO HS [facility] Last Admin: 03/30/18 21:37 Dose: 20 mg Glimepiride (Amaryl) 2 mg PO ACBD [facility] Last Admin: 03/30/18 17:29 Dose: 2 mg Guaifenesin (Mucinex La) 600 mg PO BID [facility] Last Admin: 03/30/18 17:29 Dose: 600 mg Hydrochlorothiazide (Microzide) 12.5 mg PO DAILY [facility] Last Admin: 03/30/18 11:59 Dose: 12.5 mg Hydrocortisone (Cortizone 0.5% Cream) 1 applic TOP BID [facility] Last Admin: 03/30/18 19:11 Dose: 1 applic Ceftriaxone Sodium 1 gm/ (Sodium Chloride) 100 mls @ 100 mls/hr IVPB DAILY [facility]; Protocol Last Admin: 03/30/18 12:00 Dose: 100 mls/hr Azithromycin 500 mg/ Sodium (Chloride) 250 mls @ 250 mls/hr IVPB Q24H [facility]; Protocol Last Admin: 03/30/18 17:30 Dose: 250 mls/hr Insulin Human Regular (Novolin R) 0 unit SC ACHS [facility]; Protocol Last Admin: 03/30/18 21:29 Dose: Not Given Losartan Potassium (Cozaar) 100 mg PO DAILY [facility] Last Admin: 03/30/18 11:58 Dose: 100 mg Methylprednisolone (Solu-Medrol) 40 mg IV Q12 [facility] Last Admin: 03/30/18 21:37 Dose: 40 mg Montelukast Sodium (Singulair) 10 mg PO DAILY [facility] Last Admin: 03/30/18 11:58 Dose: 10 mg Rosuvastatin Calcium (Crestor) 5 mg PO HS [facility] Last Admin: 03/30/18 21:37 Dose: 5 mg - Labs Labs: 03/28/18 12:16 03/28/18 12:16 Assessment and Plan - Assessment and Plan (Free Text) Plan: Patient seen and evaluated personally by me. Plan of care d/w the diagnostic medical sonographer and as documented
[2018-03-30] MEDS: MethylPREDNISolone 40 mg Vial IV SCH ×2 (11:58→21:37)
[2018-03-30] MEDS: guaiFENesin 600 mg ER Tab PO SCH ×2 (11:59→17:29)
[2018-03-30] MEDS: Enoxaparin 40 mg Syringe SC SCH (11:59)
--- NOTE | 2018-03-30 15:21 | CP.PCM.PN ---
Subjective - Date & Time of Evaluation Date of Evaluation: 03/30/18 Time of Evaluation: 13:30 - Subjective Subjective: Patient seen and examined at bedside. Patient stated that shortness of breath, cough, congestion have improved. Patient denied fever, chills, nausea, vomiting. Exam Gen: alert and awake and oriented x3, no acute distress Cardio: RRR, no murmur Pulm: Normal breath sounds, no accessory muscle use GI: soft, nontender A and P 1. COPD exacerbation -Chest CT 03/28/18: emphysematous changes, bibasilar atelectasis -Recommend sputum culture -Continue to monitor WBC (03/30/18: 12.1) - Continue Duoneb 3ml RQ6 -Continue Guaifenesin 600mg BID -Continue Solu-medrol 40mg q12 -Continue Singulair 10mg daily - Continue Azithromycin, Ceftriaxone Objective - Vital Signs/Intake and Output Vital Signs (last 24 hours): Temp Pulse Resp BP Pulse Ox 98.1 F 102 H 20 155/82 H 92 L 03/29/18 23:28 03/30/18 11:53 03/29/18 23:28 03/30/18 11:53 03/30/18 11:53 Intake and Output: 03/30/18 03/30/18 06:59 18:59 Output Total 600 Balance -600 - Medications Medications: Current Medications Albuterol/Ipratropium (Duoneb 3 Mg/0.5 Mg (3 Ml) Ud) 3 ml INH RQ4 [facility] Last Admin: 03/30/18 11:06 Dose: Not Given Aspirin (Ecotrin) 81 mg PO DAILY [facility] Last Admin: 03/30/18 11:59 Dose: 81 mg Enoxaparin Sodium (Lovenox) 40 mg SC DAILY [facility] Last Admin: 03/30/18 11:59 Dose: 40 mg Famotidine (Pepcid) 20 mg PO HS [facility] Last Admin: 03/29/18 21:47 Dose: 20 mg Glimepiride (Amaryl) 2 mg PO ACBD [facility] Last Admin: 03/30/18 07:23 Dose: Not Given Guaifenesin (Mucinex La) 600 mg PO BID [facility] Last Admin: 03/30/18 11:59 Dose: 600 mg Hydrochlorothiazide (Microzide) 12.5 mg PO DAILY [facility] Last Admin: 03/30/18 11:59 Dose: 12.5 mg Hydrocortisone (Cortizone 0.5% Cream) 1 applic TOP BID [facility] Last Admin: 03/30/18 12:01 Dose: 1 applic Ceftriaxone Sodium 1 gm/ (Sodium Chloride) 100 mls @ 100 mls/hr IVPB DAILY [facility]; Protocol Last Admin: 03/30/18 12:00 Dose: 100 mls/hr Azithromycin 500 mg/ Sodium (Chloride) 250 mls @ 250 mls/hr IVPB Q24H [facility]; Protocol Last Admin: 03/29/18 17:54 Dose: 250 mls/hr Insulin Human Regular (Novolin R) 0 unit SC ACHS [facility]; Protocol Last Admin: 03/30/18 12:00 Dose: 3 units Losartan Potassium (Cozaar) 100 mg PO DAILY [facility] Last Admin: 03/30/18 11:58 Dose: 100 mg Methylprednisolone (Solu-Medrol) 40 mg IV Q12 [facility] Last Admin: 03/30/18 11:58 Dose: 40 mg Montelukast Sodium (Singulair) 10 mg PO DAILY [facility] Last Admin: 03/30/18 11:58 Dose: 10 mg Rosuvastatin Calcium (Crestor) 5 mg PO HS [facility] Last Admin: 03/29/18 21:47 Dose: 5 mg - Labs Labs: 03/28/18 12:16 03/28/18 12:16
[2018-03-30] MEDS: Azithromycin 500 MG in Sodium Chloride 0.9% 250 ML IVPB SCH (17:30)
--- NOTE | 2018-03-30 21:46 | CP.PCM.PN ---
Subjective - Date & Time of Evaluation Date of Evaluation: 03/30/18 Time of Evaluation: 08:00 - Subjective Subjective: dictated Objective - Vital Signs/Intake and Output Vital Signs (last 24 hours): Temp Pulse Resp BP Pulse Ox 98 F 114 H 20 135/77 95 03/30/18 16:00 03/30/18 20:39 03/30/18 16:00 03/30/18 16:00 03/30/18 16:00 - Medications Medications: Current Medications Albuterol/Ipratropium (Duoneb 3 Mg/0.5 Mg (3 Ml) Ud) 3 ml INH RQ4 [facility] Last Admin: 03/30/18 19:05 Dose: 3 ml Aspirin (Ecotrin) 81 mg PO DAILY [facility] Last Admin: 03/30/18 11:59 Dose: 81 mg Enoxaparin Sodium (Lovenox) 40 mg SC DAILY [facility] Last Admin: 03/30/18 11:59 Dose: 40 mg Famotidine (Pepcid) 20 mg PO HS [facility] Last Admin: 03/30/18 21:37 Dose: 20 mg Glimepiride (Amaryl) 2 mg PO ACBD [facility] Last Admin: 03/30/18 17:29 Dose: 2 mg Guaifenesin (Mucinex La) 600 mg PO BID [facility] Last Admin: 03/30/18 17:29 Dose: 600 mg Hydrochlorothiazide (Microzide) 12.5 mg PO DAILY [facility] Last Admin: 03/30/18 11:59 Dose: 12.5 mg Hydrocortisone (Cortizone 0.5% Cream) 1 applic TOP BID [facility] Last Admin: 03/30/18 19:11 Dose: 1 applic Ceftriaxone Sodium 1 gm/ (Sodium Chloride) 100 mls @ 100 mls/hr IVPB DAILY [facility]; Protocol Last Admin: 03/30/18 12:00 Dose: 100 mls/hr Azithromycin 500 mg/ Sodium (Chloride) 250 mls @ 250 mls/hr IVPB Q24H [facility]; Protocol Last Admin: 03/30/18 17:30 Dose: 250 mls/hr Insulin Human Regular (Novolin R) 0 unit SC ACHS [facility]; Protocol Last Admin: 03/30/18 21:29 Dose: Not Given Losartan Potassium (Cozaar) 100 mg PO DAILY [facility] Last Admin: 03/30/18 11:58 Dose: 100 mg Methylprednisolone (Solu-Medrol) 40 mg IV Q12 [facility] Last Admin: 03/30/18 21:37 Dose: 40 mg Montelukast Sodium (Singulair) 10 mg PO DAILY [facility] Last Admin: 03/30/18 11:58 Dose: 10 mg Rosuvastatin Calcium (Crestor) 5 mg PO HS [facility] Last Admin: 03/30/18 21:37 Dose: 5 mg - Labs Labs: 03/28/18 12:16 03/28/18 12:16
--- NOTE | 2018-03-30 22:57 | CARD ---
APPROVED REPORT Date of service: 03/30/2018 Protocol: LEXISCAN Test Type: LEXISCAN Test Indications: DYSPNEA,COPD EXACEBATION/R/O ACS Medications: LIST Target HR: 148 bpm Resting ECG: NSR W/ APB'S Resting Heart Rate: 93 bpm Resting Blood Pressure: 140/80mmHg submaximum (85%): 126 bpm TEST SUMMARY [id number]:280.00..255256/80.1. INFUSIONDOSE 100:300.00.01.9/.1. [id number]:510.00..1252716/80.1. PROCEDURE Pharmacologic stress testing was performed using 0.4mg per 5ml of regadenoson given intravenously over 7-10 seconds. POST EXERCISE Reason for Termination: Protocol Completed Target HR: No Max HR: 99 bpm 77% of Maximum Predicted HR: 148 bpm Exercise duration: 00:30 min:sec, 0 Stage Exercise capacity: 1.0METs Max Blood Pressure: 140/80mmHg Blood Pressure response to exercise: normal resting BP - appropriate response Heart Rate response to exercise: appropriate Chest Pain: No, none Angina index: 0 Arrhythmia: No, none ST Change: Yes, NS ST T CHANGES V4-V6 Deviation: 0 mm INTERPRETATION Stress EKG Conclusion: NEGATIVE LEXISCAN STRESS TEST APB'S; VPB NORMAL BP RESPONSE TO LEXISCAN NUCLEAR STUDIES TO BE READ SEPARATELY Imaging Protocol Rest Spect myocardial perfusion imaging was performed in supine position 43 minutes following the injection of 12.6 mCi of Tc-99 Myoview. Gated Stress Spect was performed 45 minutes after intravenous 32.9 mCi Tc-99 Myoview injection. The images were gated to evaluate regional wall motion and calculate ventricular ejection fraction.Images were reconstructed using backfilter projection method in short horizontal and verticle long axis. Spect slices were generated. RESTING DATA EDV77.89twDJ3.20L/min1/3 Pk. Filling Rate1.42EDV/sec LV Time to Pk. Filling Zkna101.47msec ESV29.00mlMyocardial Eaya152.00gLV Time to Pk. Ejection Vkqa456.68msec Pk. Fill Rate3.15EDV/secAv. Heart Rate87.00bpm EF62.00%Pk. Emptying Rate4.29ESV/sec STRESS DATA EDV84.91szXE7.00L/min ESV28.00mlMyocardial Jwmb376.00g Pk. Fill Rate2.88EDV/sec EF67.00%Pk. Emptying Rate3.54ESV/sec 1/3 Pk. Filling Rate1.36EDV/secRegional WT score at stress:3.00 LV Time to Pk. Filling Rate:176.87msecRegional WM score at stress:0.00 LV Time to Pk. Ejection Rate:135.25msecSummed WT score at stress:16.00 Av. Heart Rate90.00bpmSummed WM score at stress:2.00 LV Perf. Quant 17 Seg. SSS6.00 17 Seg. SRS9.00 17 Seg. SDS0.00 Stress Defect Extent (% LAD)4.40Rest Defect Extent (% LAD)2.50Rev. Defect Extent (% LAD)0.60 Stress Defect Extent (% LCX)10.00Rest Defect Extent (% LCX)15.00Rev. Defect Extent (% LCX)0.00 Stress Defect Extent (% RCA)28.90Rest Defect Extent (% RCA)37.80Rev. Defect Extent (% RCA)0.00 Stress Defect Extent (% DOMINIK)12.60Rest Defect Extent (% DOMINIK)16.10Rev. Defect Extent (% DOMINIK)1.10 IMPRESSION Abnormal Myocardial Perfusion exercise stress study Left Ventricle LV Function:Left ventricle systolic function is normal. The Ejection Fraction is 65-70%. Regional Wall Motion:There is normal left ventricular wall motion. Metabolism/Perfusion Defects: There is fixed defect with partial reversibility suggestive of ischemia noted in the inferior wall. Conclusion 1. There is fixed defect with partial reversibility suggestive of ischemia noted in the inferior wall. 2. Left ventricle systolic function is normal. 3. The Ejection Fraction is 65-70%.
--- NOTE | 2018-03-31 00:43 | PN ---
DATE: 03/30/2018 SUBJECTIVE: The patient is still coughing and wheezing. He feels better. He has itching in the leg. He has sputum production. No nausea or vomiting. No fever. PHYSICAL EXAMINATION: VITAL SIGNS: Blood pressure 135/77, pulse 112, respiratory rate 20, temperature 98. LUNGS: Bilateral inspiratory and expiratory rhonchi. Decreased air entry. CARDIOVASCULAR SYSTEM: S1 and S2, regular. ABDOMEN: Soft. ASSESSMENT: 1. Exacerbation of chronic obstructive pulmonary disease. 2. Hypertension. 3. Tracheobronchitis. 4. Osteoarthritis of the spine. PLAN: Continue Solu-Medrol and oxygen nebulizer and discuss with Pulmonary, possible steroid taper. Bob Bravo MD
[2018-03-31] MEDS: Albuterol-Ipratrop 3 mg / 0.5 (3 ml) UD INH SCH ×6 (03:14→23:41)
[2018-03-31] MEDS: (Novolin R) Insulin Human Regular 100 units/ml vial SC SCH ×4 (08:24→22:16)
[2018-03-31] MEDS: guaiFENesin 600 mg ER Tab PO SCH ×2 (09:24→22:16)
[2018-03-31] MEDS: Enoxaparin 40 mg Syringe SC SCH (09:25)
[2018-03-31] MEDS: MethylPREDNISolone 40 mg Vial IV SCH (09:25)
--- NOTE | 2018-03-31 10:08 | CP.PCM.PN ---
Subjective - Date & Time of Evaluation Date of Evaluation: 03/31/18 Time of Evaluation: 10:07 - Subjective Subjective: Patient with abnormal stress test cardiac cath scheduled tomorrow in am Objective - Vital Signs/Intake and Output Vital Signs (last 24 hours): Temp Pulse Resp BP Pulse Ox 98.0 F 98 H 20 157/81 H 98 03/31/18 07:00 03/31/18 09:29 03/31/18 07:00 03/31/18 09:29 03/31/18 07:00 Intake and Output: 03/31/18 03/31/18 06:59 18:59 Intake Total 650 Output Total 800 Balance -150 - Medications Medications: Current Medications Albuterol/Ipratropium (Duoneb 3 Mg/0.5 Mg (3 Ml) Ud) 3 ml INH RQ4 [facility] Last Admin: 03/31/18 09:24 Dose: 3 ml Aspirin (Ecotrin) 81 mg PO DAILY [facility] Last Admin: 03/31/18 09:24 Dose: 81 mg Enoxaparin Sodium (Lovenox) 40 mg SC DAILY [facility] Last Admin: 03/31/18 09:25 Dose: 40 mg Famotidine (Pepcid) 20 mg PO HS [facility] Last Admin: 03/30/18 21:37 Dose: 20 mg Glimepiride (Amaryl) 2 mg PO ACBD [facility] Last Admin: 03/31/18 08:23 Dose: 2 mg Guaifenesin (Mucinex La) 600 mg PO BID [facility] Last Admin: 03/31/18 09:24 Dose: 600 mg Hydrochlorothiazide (Microzide) 12.5 mg PO DAILY [facility] Last Admin: 03/31/18 09:25 Dose: 12.5 mg Hydrocortisone (Cortizone 0.5% Cream) 1 applic TOP BID [facility] Last Admin: 03/30/18 19:11 Dose: 1 applic Ceftriaxone Sodium 1 gm/ (Sodium Chloride) 100 mls @ 100 mls/hr IVPB DAILY [facility]; Protocol Last Admin: 03/31/18 09:27 Dose: 100 mls/hr Azithromycin 500 mg/ Sodium (Chloride) 250 mls @ 250 mls/hr IVPB Q24H [facility]; Protocol Last Admin: 03/30/18 17:30 Dose: 250 mls/hr Insulin Human Regular (Novolin R) 0 unit SC ACHS [facility]; Protocol Last Admin: 03/31/18 08:24 Dose: 3 units Losartan Potassium (Cozaar) 100 mg PO DAILY [facility] Last Admin: 03/31/18 09:25 Dose: 100 mg Methylprednisolone (Solu-Medrol) 40 mg IV Q12 [facility] Last Admin: 03/31/18 09:25 Dose: 40 mg Montelukast Sodium (Singulair) 10 mg PO DAILY [facility] Last Admin: 03/31/18 09:23 Dose: 10 mg Rosuvastatin Calcium (Crestor) 5 mg PO HS [facility] Last Admin: 03/30/18 21:37 Dose: 5 mg - Labs Labs: 03/28/18 12:16 03/28/18 12:16
--- NOTE | 2018-03-31 17:19 | CP.PCM.PN ---
Subjective - Date & Time of Evaluation Date of Evaluation: 03/31/18 Time of Evaluation: 10:20 - Subjective Subjective: Patient seen and examined at bedside. Patient stated that he is feeling better, and that shortness of breath and cough are improving. Patient denied fever, chills, nausea, vomiting. Exam Gen: alert and awake and oriented x3, no acute distress Cardio: RRR, no murmur Pulm: Normal breath sounds, no accessory muscle use GI: soft, nontender A and P 1. COPD exacerbation -Chest CT 03/28/18: emphysematous changes, bibasilar atelectasis -Recommend sputum culture -Continue to monitor WBC (03/30/18: 12.1) - Continue Duoneb 3ml RQ6 -Continue Guaifenesin 600mg BID -Continue Solu-medrol 40mg q12 -Continue Singulair 10mg daily - Continue Azithromycin, Ceftriaxone 2. Myocardial ischemia -Cardio consulted -Abnormal myocardial perfusion exercise stress study -Inferior wall ischemia, may get cath Objective - Vital Signs/Intake and Output Vital Signs (last 24 hours): Temp Pulse Resp BP Pulse Ox 98.2 F 86 20 139/86 94 L 03/31/18 16:00 03/31/18 16:00 03/31/18 16:00 03/31/18 16:00 03/31/18 16:00 Intake and Output: 03/31/18 03/31/18 06:59 18:59 Intake Total 650 Output Total 800 Balance -150 - Medications Medications: Current Medications Albuterol/Ipratropium (Duoneb 3 Mg/0.5 Mg (3 Ml) Ud) 3 ml INH RQ4 [facility] Last Admin: 03/31/18 12:55 Dose: 3 ml Aspirin (Ecotrin) 81 mg PO DAILY [facility] Last Admin: 03/31/18 09:24 Dose: 81 mg Enoxaparin Sodium (Lovenox) 40 mg SC DAILY [facility] Last Admin: 03/31/18 09:25 Dose: 40 mg Famotidine (Pepcid) 20 mg PO HS [facility] Last Admin: 03/30/18 21:37 Dose: 20 mg Glimepiride (Amaryl) 2 mg PO ACBD [facility] Last Admin: 03/31/18 08:23 Dose: 2 mg Guaifenesin (Mucinex La) 600 mg PO BID [facility] Last Admin: 03/31/18 09:24 Dose: 600 mg Hydrochlorothiazide (Microzide) 12.5 mg PO DAILY [facility] Last Admin: 03/31/18 09:25 Dose: 12.5 mg Hydrocortisone (Cortizone 0.5% Cream) 1 applic TOP BID [facility] Last Admin: 03/31/18 10:51 Dose: 1 applic Ceftriaxone Sodium 1 gm/ (Sodium Chloride) 100 mls @ 100 mls/hr IVPB DAILY [facility]; Protocol Last Admin: 03/31/18 09:27 Dose: 100 mls/hr Azithromycin 500 mg/ Sodium (Chloride) 250 mls @ 250 mls/hr IVPB Q24H [facility]; Protocol Last Admin: 03/30/18 17:30 Dose: 250 mls/hr Insulin Human Regular (Novolin R) 0 unit SC ACHS [facility]; Protocol Last Admin: 03/31/18 12:27 Dose: 3 units Losartan Potassium (Cozaar) 100 mg PO DAILY [facility] Last Admin: 03/31/18 09:25 Dose: 100 mg Methylprednisolone (Solu-Medrol) 40 mg IV Q12 [facility] Last Admin: 03/31/18 09:25 Dose: 40 mg Montelukast Sodium (Singulair) 10 mg PO DAILY [facility] Last Admin: 03/31/18 09:23 Dose: 10 mg Rosuvastatin Calcium (Crestor) 5 mg PO HS [facility] Last Admin: 03/30/18 21:37 Dose: 5 mg - Labs Labs: 03/28/18 12:16 03/28/18 12:16
[2018-03-31] MEDS: Azithromycin 500 MG in Sodium Chloride 0.9% 250 ML IVPB SCH (18:20)
--- NOTE | 2018-03-31 21:10 | CP.PCM.PN ---
Subjective - Date & Time of Evaluation Date of Evaluation: 03/31/18 Time of Evaluation: 08:20 - Subjective Subjective: dictated Objective - Vital Signs/Intake and Output Vital Signs (last 24 hours): Temp Pulse Resp BP Pulse Ox 98.2 F 86 20 139/86 94 L 03/31/18 16:00 03/31/18 16:00 03/31/18 16:00 03/31/18 16:00 03/31/18 16:00 - Medications Medications: Current Medications Albuterol/Ipratropium (Duoneb 3 Mg/0.5 Mg (3 Ml) Ud) 3 ml INH RQ4 [facility] Last Admin: 03/31/18 19:13 Dose: 3 ml Aspirin (Ecotrin) 81 mg PO DAILY [facility] Last Admin: 03/31/18 09:24 Dose: 81 mg Enoxaparin Sodium (Lovenox) 40 mg SC DAILY [facility] Last Admin: 03/31/18 09:25 Dose: 40 mg Famotidine (Pepcid) 20 mg PO HS [facility] Last Admin: 03/30/18 21:37 Dose: 20 mg Glimepiride (Amaryl) 2 mg PO ACBD [facility] Last Admin: 03/31/18 18:20 Dose: 2 mg Guaifenesin (Mucinex La) 600 mg PO BID [facility] Last Admin: 03/31/18 09:24 Dose: 600 mg Hydrochlorothiazide (Microzide) 12.5 mg PO DAILY [facility] Last Admin: 03/31/18 09:25 Dose: 12.5 mg Hydrocortisone (Cortizone 0.5% Cream) 1 applic TOP BID [facility] Last Admin: 03/31/18 18:19 Dose: 1 applic Ceftriaxone Sodium 1 gm/ (Sodium Chloride) 100 mls @ 100 mls/hr IVPB DAILY [facility]; Protocol Last Admin: 03/31/18 09:27 Dose: 100 mls/hr Insulin Human Regular (Novolin R) 0 unit SC ACHS [facility]; Protocol Last Admin: 03/31/18 18:20 Dose: 3 units Losartan Potassium (Cozaar) 100 mg PO DAILY [facility] Last Admin: 03/31/18 09:25 Dose: 100 mg Methylprednisolone (Solu-Medrol) 40 mg IV Q12 [facility] Last Admin: 03/31/18 09:25 Dose: 40 mg Montelukast Sodium (Singulair) 10 mg PO DAILY [facility] Last Admin: 03/31/18 09:23 Dose: 10 mg Rosuvastatin Calcium (Crestor) 5 mg PO [facility] Last Admin: 03/30/18 21:37 Dose: 5 mg - Labs Labs: 03/28/18 12:16 03/28/18 12:16
--- NOTE | 2018-03-31 23:40 | CP.PCM.PN ---
Subjective - Date & Time of Evaluation Date of Evaluation: 03/31/18 Time of Evaluation: 23:40 - Subjective Subjective: Patient with abnormal stress test for cath in am Objective - Vital Signs/Intake and Output Vital Signs (last 24 hours): Temp Pulse Resp BP Pulse Ox 98.2 F 86 20 139/86 94 L 03/31/18 16:00 03/31/18 16:00 03/31/18 16:00 03/31/18 16:00 03/31/18 16:00 - Medications Medications: Current Medications Albuterol/Ipratropium (Duoneb 3 Mg/0.5 Mg (3 Ml) Ud) 3 ml INH RQ4 [facility] Last Admin: 03/31/18 19:13 Dose: 3 ml Aspirin (Ecotrin) 81 mg PO DAILY [facility] Last Admin: 03/31/18 09:24 Dose: 81 mg Enoxaparin Sodium (Lovenox) 40 mg SC DAILY [facility] Last Admin: 03/31/18 09:25 Dose: 40 mg Famotidine (Pepcid) 20 mg PO HS [facility] Last Admin: 03/31/18 22:16 Dose: 20 mg Glimepiride (Amaryl) 2 mg PO ACBD [facility] Last Admin: 03/31/18 18:20 Dose: 2 mg Guaifenesin (Mucinex La) 600 mg PO BID [facility] Last Admin: 03/31/18 22:16 Dose: 600 mg Hydrochlorothiazide (Microzide) 12.5 mg PO DAILY [facility] Last Admin: 03/31/18 09:25 Dose: 12.5 mg Hydrocortisone (Cortizone 0.5% Cream) 1 applic TOP BID [facility] Last Admin: 03/31/18 18:19 Dose: 1 applic Ceftriaxone Sodium 1 gm/ (Sodium Chloride) 100 mls @ 100 mls/hr IVPB DAILY [facility]; Protocol Last Admin: 03/31/18 09:27 Dose: 100 mls/hr Insulin Human Regular (Novolin R) 0 unit SC ACHS [facility]; Protocol Last Admin: 03/31/18 22:16 Dose: Not Given Losartan Potassium (Cozaar) 100 mg PO DAILY [facility] Last Admin: 03/31/18 09:25 Dose: 100 mg Methylprednisolone (Solu-Medrol) 40 mg IV DAILY [facility] Montelukast Sodium (Singulair) 10 mg PO DAILY [facility] Last Admin: 03/31/18 09:23 Dose: 10 mg Rosuvastatin Calcium (Crestor) 5 mg PO HS [facility] Last Admin: 03/31/18 22:16 Dose: 5 mg - Labs Labs: 03/28/18 12:16 03/28/18 12:16
--- NOTE | 2018-04-01 01:02 | PN ---
DATE: 03/31/2018 SUBJECTIVE: The patient is feeling better. He is less short of breath, less cough, less wheezing. He is on blood pressure medications and he is tolerating well. The patient is for cardiac catheterization tomorrow morning. Other than that, he denies any nausea or vomiting. PHYSICAL EXAMINATION: VITAL SIGNS: Blood pressure 140/80, pulse 70, respiratory rate 20, and temperature 99. LUNGS: Bilateral scattered rales and rhonchi. CVS: S1 and S2. Regular. ABDOMEN: Soft. ASSESSMENT: 1. Chronic obstructive pulmonary disease exacerbation. 2. Rule out coronary artery disease, cardiac catheterization. 3. Hypertension. PLAN: Cardiac cath in a.m. Monitor the patient. Bob Bravo MD
[2018-04-01] MEDS: Albuterol-Ipratrop 3 mg / 0.5 (3 ml) UD INH SCH ×5 (03:11→20:43)
[2018-04-01 07:11] LABS: HEMOGLOBIN 12.2 g/dL (12.0-18.0); MEAN CELL VOLUME 80.7 fL (80.0-94.0); MEAN CORPUSCULAR HEMOGLOBIN 26.1 pg (27.0-31.0); MEAN CORPUSCULAR HGB CONC 32.3 g/dL (33.0-37.0); MEAN PLATELET VOLUME 8.6 fL (7.2-11.7); RBC 4.66 Mil/uL (4.40-5.90); RED CELL DISTRIBUTION WIDTH 17.2 % (11.5-14.5); WHITE BLOOD COUNT 8.6 K/uL (4.8-10.8)
[2018-04-01 07:23] LABS: INR 1.1; PROTHROMBIN TIME 11.5 SECONDS (9.7-12.2)
[2018-04-01] MEDS: (Novolin R) Insulin Human Regular 100 units/ml vial SC SCH ×4 (07:34→21:39)
[2018-04-01 07:49] LABS: BLOOD UREA NITROGEN 29 mg/dL (9-20); CALCIUM 8.7 mg/dl (8.6-10.4); GFR NON-AFRICAN AMERICAN > 60
[2018-04-01] MEDS ORDERED: Dextrose 50% SYRINGE Inj (50 ml) ONE (08:02)
[2018-04-01] MEDS ORDERED: Verapamil 2 ML ONE (08:36)
[2018-04-01] MEDS ORDERED: Nitroglycerin 50mg in D5W 50 MG/250 ML BOTTLE IV ONE (08:37)
[2018-04-01] MEDS ORDERED: Iodixanol 320 MG/ML 100 ML BOTTLE IV ONE (08:38)
[2018-04-01] MEDS ORDERED: Midazolam 2 MG/2 ML VIAL ONE (08:43)
[2018-04-01] MEDS ORDERED: Dextrose 50% SYRINGE Inj (50 ml) IV ONE (08:45)
--- NOTE | 2018-04-01 08:52 | CARD ---
APPROVED REPORT Date of service: 03/29/2018 EXAM: Two-dimensional and M-mode echocardiogram with Doppler and color Doppler. Other Information Quality : Technically LimitedRhythm : INDICATION Dyspnea CAD COPD TDS/ASTHMA RISK FACTORS Diabetes 2D DIMENSIONS IVSd1.0 (0.7-1.1cm)LVDd5.4 (3.9-5.9cm) PWd1.2 (0.7-1.1cm)LA Vbhmnx14 (18-58mL) LVDs4.1 (2.5-4.0cm)FS (%) 24.4 % LVEF (%)55.0 (>50%)LVEF (Alicea's)63.33 % M-Mode DIMENSIONS Left Atrium (MM)2.79 (2.5-4.0cm)Aortic Root3.19 (2.2-3.7cm) Aortic Cusp Exc.2.25 (1.5-2.0cm) Mitral Valve MV E Txnilqyq66.9cm/sMV A Stmhkxuy003.8cm/sE/A ratio0.7 TDI Lateral E' Peak V8.03cm/sMedial E' Peak V5.84cm/sE/Lateral E'9.2 E/Medial E'12.7 LEFT VENTRICLE The left ventricle is normal size. There is normal left ventricular wall thickness. The left ventricular function is normal. The left ventricular ejection fraction is within the normal range. 63% No regional wall motion abnormalities noted. Transmitral Doppler flow pattern is Grade I-abnormal relaxation pattern. No left ventricle thrombus noted on this study. There is no ventricular septal defect visualized. There is no left ventricular aneurysm. There is no mass noted in the left ventricle. RIGHT VENTRICLE The right ventricle is normal size. There is normal right ventricular wall thickness. The right ventricular systolic function is normal. ATRIA The left atrium size is normal. The right atrium size is normal. The interatrial septum is intact with no evidence for an atrial septal defect. AORTIC VALVE The aortic valve is normal in structure and function. No aortic regurgitation is present. There is no aortic valvular stenosis. There is no aortic valvular vegetation. MITRAL VALVE The mitral valve is normal in structure and function. There is no evidence of mitral valve prolapse. There is no mitral valve stenosis. There is trace mitral valve regurgitation noted. TRICUSPID VALVE The tricuspid valve is normal in structure and function. There is no tricuspid valve regurgitation noted. There is no tricuspid valve prolapse or vegetation. There is no tricuspid valve stenosis. PULMONIC VALVE The pulmonary valve is normal in structure and function. There is no pulmonic valvular regurgitation. There is no pulmonic valvular stenosis. GREAT VESSELS The aortic root is normal in size. The ascending aorta is normal in size. The pulmonary artery is normal. The IVC is normal in size and collapses >50% with inspiration. PERICARDIAL EFFUSION The pericardium appears normal. There is no pleural effusion. <Conclusion> The left ventricular function is normal. Transmitral Doppler flow pattern is Grade I-abnormal relaxation pattern. Normal Doppler.
--- NOTE | 2018-04-01 10:24 | CP.PCM.PN ---
Subjective - Date & Time of Evaluation Date of Evaluation: 04/01/18 Time of Evaluation: 10:21 - Subjective Subjective: Patient s/p cath 1. L Main: Patent 2 LAD: Mild to moderate diffuse disease 3. L Cx: Distal 50%. Left dominant system 4. RCA: Non dominant. Distal 100%. Left to right collaterals 5. EF: 50%, EDP 19, No Aggressive medical management Objective - Vital Signs/Intake and Output Vital Signs (last 24 hours): Temp Pulse Resp BP Pulse Ox 97.4 F L 76 21 128/66 97 04/01/18 07:54 04/01/18 07:54 04/01/18 07:54 04/01/18 07:54 04/01/18 07:54 - Medications Medications: Current Medications Albuterol/Ipratropium (Duoneb 3 Mg/0.5 Mg (3 Ml) Ud) 3 ml INH RQ4 [facility] Last Admin: 04/01/18 08:46 Dose: Not Given Aspirin (Ecotrin) 81 mg PO DAILY [facility] Last Admin: 04/01/18 07:19 Dose: 81 mg Enoxaparin Sodium (Lovenox) 40 mg SC DAILY [facility] Last Admin: 03/31/18 09:25 Dose: 40 mg Famotidine (Pepcid) 20 mg PO HS [facility] Last Admin: 03/31/18 22:16 Dose: 20 mg Glimepiride (Amaryl) 2 mg PO ACBD [facility] Last Admin: 04/01/18 07:34 Dose: Not Given Guaifenesin (Mucinex La) 600 mg PO BID [facility] Last Admin: 03/31/18 22:16 Dose: 600 mg Hydrochlorothiazide (Microzide) 12.5 mg PO DAILY [facility] Last Admin: 03/31/18 09:25 Dose: 12.5 mg Hydrocortisone (Cortizone 0.5% Cream) 1 applic TOP BID [facility] Last Admin: 03/31/18 18:19 Dose: 1 applic Ceftriaxone Sodium 1 gm/ (Sodium Chloride) 100 mls @ 100 mls/hr IVPB DAILY [facility]; Protocol Last Admin: 03/31/18 09:27 Dose: 100 mls/hr Insulin Human Regular (Novolin R) 0 unit SC ACHS [facility]; Protocol Last Admin: 04/01/18 07:34 Dose: Not Given Losartan Potassium (Cozaar) 100 mg PO DAILY [facility] Last Admin: 04/01/18 07:18 Dose: 100 mg Methylprednisolone (Solu-Medrol) 40 mg IV DAILY [facility] Montelukast Sodium (Singulair) 10 mg PO DAILY [facility] Last Admin: 03/31/18 09:23 Dose: 10 mg Rosuvastatin Calcium (Crestor) 5 mg PO HS [facility] Last Admin: 03/31/18 22:16 Dose: 5 mg - Labs Labs: 04/01/18 07:04 04/01/18 07:04 PT 11.5 SECONDS (9.7-12.2) 04/01/18 07:04 INR 1.1 04/01/18 07:04
[2018-04-01] MEDS: Enoxaparin 40 mg Syringe SC SCH (11:06)
[2018-04-01] MEDS: guaiFENesin 600 mg ER Tab PO SCH ×2 (11:06→17:42)
[2018-04-01] MEDS: MethylPREDNISolone 40 mg Vial IV SCH (11:06)
--- NOTE | 2018-04-01 12:29 | CP.PCM.PN ---
Subjective - Date & Time of Evaluation Date of Evaluation: 04/01/18 Time of Evaluation: 08:20 - Subjective Subjective: dictated Objective - Vital Signs/Intake and Output Vital Signs (last 24 hours): Temp Pulse Resp BP Pulse Ox 97.4 F L 97 H 21 150/88 94 L 04/01/18 11:11 04/01/18 11:11 04/01/18 11:11 04/01/18 11:11 04/01/18 11:11 - Medications Medications: Current Medications Albuterol/Ipratropium (Duoneb 3 Mg/0.5 Mg (3 Ml) Ud) 3 ml INH RQ4 [facility] Last Admin: 04/01/18 12:05 Dose: 3 ml Aspirin (Ecotrin) 81 mg PO DAILY [facility] Last Admin: 04/01/18 11:06 Dose: 81 mg Enoxaparin Sodium (Lovenox) 40 mg SC DAILY [facility] Last Admin: 04/01/18 11:06 Dose: 40 mg Famotidine (Pepcid) 20 mg PO HS [facility] Last Admin: 03/31/18 22:16 Dose: 20 mg Glimepiride (Amaryl) 2 mg PO ACBD [facility] Last Admin: 04/01/18 07:34 Dose: Not Given Guaifenesin (Mucinex La) 600 mg PO BID [facility] Last Admin: 04/01/18 11:06 Dose: 600 mg Hydrochlorothiazide (Microzide) 12.5 mg PO DAILY [facility] Last Admin: 03/31/18 09:25 Dose: 12.5 mg Hydrocortisone (Cortizone 0.5% Cream) 1 applic TOP BID [facility] Last Admin: 04/01/18 11:10 Dose: 1 applic Ceftriaxone Sodium 1 gm/ (Sodium Chloride) 100 mls @ 100 mls/hr IVPB DAILY [facility]; Protocol Last Admin: 04/01/18 11:07 Dose: 100 mls/hr Insulin Human Regular (Novolin R) 0 unit SC ACHS [facility]; Protocol Last Admin: 04/01/18 11:58 Dose: Not Given Losartan Potassium (Cozaar) 100 mg PO DAILY [facility] Last Admin: 04/01/18 11:10 Dose: 100 mg Methylprednisolone (Solu-Medrol) 40 mg IV DAILY [facility] Last Admin: 04/01/18 11:06 Dose: 40 mg Montelukast Sodium (Singulair) 10 mg PO DAILY [facility] Last Admin: 04/01/18 11:06 Dose: 10 mg Rosuvastatin Calcium (Crestor) 5 mg PO HS [facility] Last Admin: 03/31/18 22:16 Dose: 5 mg - Labs Labs: 04/01/18 07:04 04/01/18 07:04 PT 11.5 SECONDS (9.7-12.2) 04/01/18 07:04 INR 1.1 04/01/18 07:04
--- NOTE | 2018-04-01 13:17 | CP.PCM.PN ---
Subjective - Date & Time of Evaluation Date of Evaluation: 04/01/18 Time of Evaluation: 07:40 - Subjective Subjective: Status post cardiac cath 1. L Main: Patent 2 LAD: Mild to moderate diffuse disease 3. L Cx: Distal 50%. Left dominant system 4. RCA: Non dominant. Distal 100%. Left to right collaterals 5. EF: 50%, EDP 19, No Breathing better Afebrile No chest pain Case discussed with cardiology Objective - Vital Signs/Intake and Output Vital Signs (last 24 hours): Temp Pulse Resp BP Pulse Ox 97.4 F L 97 H 21 150/88 94 L 04/01/18 11:11 04/01/18 11:11 04/01/18 11:11 04/01/18 11:11 04/01/18 11:11 - Medications Medications: Current Medications Albuterol/Ipratropium (Duoneb 3 Mg/0.5 Mg (3 Ml) Ud) 3 ml INH RQ4 [facility] Last Admin: 04/01/18 12:05 Dose: 3 ml Aspirin (Ecotrin) 81 mg PO DAILY [facility] Last Admin: 04/01/18 11:06 Dose: 81 mg Enoxaparin Sodium (Lovenox) 40 mg SC DAILY [facility] Last Admin: 04/01/18 11:06 Dose: 40 mg Famotidine (Pepcid) 20 mg PO HS [facility] Last Admin: 03/31/18 22:16 Dose: 20 mg Glimepiride (Amaryl) 2 mg PO ACBD [facility] Last Admin: 04/01/18 07:34 Dose: Not Given Guaifenesin (Mucinex La) 600 mg PO BID [facility] Last Admin: 04/01/18 11:06 Dose: 600 mg Hydrochlorothiazide (Microzide) 12.5 mg PO DAILY [facility] Last Admin: 03/31/18 09:25 Dose: 12.5 mg Hydrocortisone (Cortizone 0.5% Cream) 1 applic TOP BID [facility] Last Admin: 04/01/18 11:10 Dose: 1 applic Ceftriaxone Sodium 1 gm/ (Sodium Chloride) 100 mls @ 100 mls/hr IVPB DAILY [facility]; Protocol Last Admin: 04/01/18 11:07 Dose: 100 mls/hr Insulin Human Regular (Novolin R) 0 unit SC ACHS [facility]; Protocol Last Admin: 04/01/18 11:58 Dose: Not Given Losartan Potassium (Cozaar) 100 mg PO DAILY [facility] Last Admin: 04/01/18 11:10 Dose: 100 mg Methylprednisolone (Solu-Medrol) 40 mg IV DAILY [facility] Last Admin: 04/01/18 11:06 Dose: 40 mg Montelukast Sodium (Singulair) 10 mg PO DAILY [facility] Last Admin: 04/01/18 11:06 Dose: 10 mg Rosuvastatin Calcium (Crestor) 5 mg PO [facility] Last Admin: 03/31/18 22:16 Dose: 5 mg - Labs Labs: 04/01/18 07:04 04/01/18 07:04 PT 11.5 SECONDS (9.7-12.2) 04/01/18 07:04 INR 1.1 04/01/18 07:04 - Head Exam Head Exam: ATRAUMATIC, NORMOCEPHALIC - Eye Exam Eye Exam: Normal appearance - ENT Exam ENT Exam: Mucous Membranes Moist - Neck Exam Neck Exam: Normal Inspection - Respiratory Exam Respiratory Exam: Decreased Breath Sounds, Rhonchi - Cardiovascular Exam Cardiovascular Exam: REGULAR RHYTHM - GI/Abdominal Exam GI & Abdominal Exam: Soft, Normal Bowel Sounds Assessment and Plan (1) COPD exacerbation Assessment & Plan: Continue IV steroids Continue nebulizer treatment Medical management as per cardiology for coronary artery disease LABA/LAMA Status: Acute (2) CAD (coronary artery disease) Status: Acute
[2018-04-02] MEDS: Albuterol-Ipratrop 3 mg / 0.5 (3 ml) UD INH SCH ×6 (00:15→19:13)
[2018-04-02] MEDS: (Novolin R) Insulin Human Regular 100 units/ml vial SC SCH ×4 (08:04→21:24)
[2018-04-02 08:38] LABS: BASO % 0.2 % (0.0-2.0); EOS % 0.1 % (0.0-4.0); HEMOGLOBIN 13.3 g/dL (12.0-18.0); LYMPH # 1.3 K/uL (1.0-4.3); LYMPH % 14.5 % (20.0-40.0); MEAN CELL VOLUME 81.1 fL (80.0-94.0); MEAN PLATELET VOLUME 8.5 fL (7.2-11.7); MONO # 0.9 K/uL (0.0-0.8); NEUT # 6.7 K/uL (1.8-7.0); NEUT % 75.2 % (50.0-75.0); NRBC % 0.1 % (0.0-2.0); RBC 5.11 Mil/uL (4.40-5.90); RED CELL DISTRIBUTION WIDTH 17.4 % (11.5-14.5); WHITE BLOOD COUNT 8.8 K/uL (4.8-10.8)
[2018-04-02 08:56] LABS: ALB/GLOB RATIO 1.6 (1.0-2.1); ALT/SGPT 65 U/L (21-72); AST/SGOT 32 U/L (17-59); BLOOD UREA NITROGEN 22 mg/dL (9-20); CALCIUM 9.1 mg/dl (8.6-10.4); GFR NON-AFRICAN AMERICAN > 60
[2018-04-02] MEDS: MethylPREDNISolone 40 mg Vial IV SCH (10:02)
[2018-04-02] MEDS: guaiFENesin 600 mg ER Tab PO SCH ×2 (10:02→18:05)
[2018-04-02] MEDS: Enoxaparin 40 mg Syringe SC SCH (10:03)
--- NOTE | 2018-04-02 12:26 | CP.PCM.PN ---
Subjective - Date & Time of Evaluation Date of Evaluation: 04/02/18 Time of Evaluation: 11:20 - Subjective Subjective: Patient seen and examined Still having difficulty breathing on minimal exertion and even at rest Status post cardiac cath Objective - Vital Signs/Intake and Output Vital Signs (last 24 hours): Temp Pulse Resp BP Pulse Ox 98.3 F 118 H 20 128/76 97 04/02/18 07:52 04/02/18 11:55 04/02/18 07:52 04/02/18 10:04 04/02/18 07:52 - Medications Medications: Current Medications Albuterol/Ipratropium (Duoneb 3 Mg/0.5 Mg (3 Ml) Ud) 3 ml INH RQ4 [facility] Last Admin: 04/02/18 11:46 Dose: 3 ml Aspirin (Ecotrin) 81 mg PO DAILY [facility] Last Admin: 04/02/18 10:02 Dose: 81 mg Enoxaparin Sodium (Lovenox) 40 mg SC DAILY [facility] Last Admin: 04/02/18 10:03 Dose: 40 mg Famotidine (Pepcid) 20 mg PO HS [facility] Last Admin: 04/01/18 22:02 Dose: 20 mg Glimepiride (Amaryl) 2 mg PO ACBD [facility] Last Admin: 04/02/18 08:23 Dose: 2 mg Guaifenesin (Mucinex La) 600 mg PO BID [facility] Last Admin: 04/02/18 10:02 Dose: 600 mg Hydrochlorothiazide (Microzide) 12.5 mg PO DAILY [facility] Last Admin: 04/02/18 10:02 Dose: 12.5 mg Hydrocortisone (Cortizone 0.5% Cream) 1 applic TOP BID [facility] Last Admin: 04/01/18 17:43 Dose: 1 applic Ceftriaxone Sodium 1 gm/ (Sodium Chloride) 100 mls @ 100 mls/hr IVPB DAILY [facility]; Protocol Last Admin: 04/02/18 10:03 Dose: 100 mls/hr Insulin Human Regular (Novolin R) 0 unit SC ACHS [facility]; Protocol Last Admin: 04/02/18 11:55 Dose: Not Given Losartan Potassium (Cozaar) 100 mg PO DAILY [facility] Last Admin: 04/02/18 10:02 Dose: 100 mg Methylprednisolone (Solu-Medrol) 40 mg IV DAILY [facility] Last Admin: 04/02/18 10:02 Dose: 40 mg Montelukast Sodium (Singulair) 10 mg PO DAILY [facility] Last Admin: 04/02/18 10:02 Dose: 10 mg Rosuvastatin Calcium (Crestor) 5 mg PO [facility] Last Admin: 04/01/18 22:02 Dose: 5 mg - Labs Labs: 04/02/18 08:24 04/02/18 08:24 PT 11.5 SECONDS (9.7-12.2) 04/01/18 07:04 INR 1.1 04/01/18 07:04 - Head Exam Head Exam: ATRAUMATIC, NORMOCEPHALIC - Eye Exam Eye Exam: Normal appearance - ENT Exam ENT Exam: Mucous Membranes Moist - Neck Exam Neck Exam: Normal Inspection - Respiratory Exam Respiratory Exam: Decreased Breath Sounds - Cardiovascular Exam Cardiovascular Exam: REGULAR RHYTHM Assessment and Plan (1) CAD (coronary artery disease) Status: Acute (2) COPD exacerbation Assessment & Plan: Continue with nebulizer treatment, IV steroids Status post cardiac cath and continue medical management LABA/LAMA inhaler Status: Acute
--- NOTE | 2018-04-02 22:09 | PN ---
DATE: 04/01/2018 SUBJECTIVE: The patient is for cardiac cath today. He is less short of breath, less cough, less wheezing. PHYSICAL EXAMINATION: VITAL SIGNS: Afebrile. Blood pressure 150/88, pulse 97, respiratory rate 21, and temperature 97.4. LUNGS: Decreased air entry, possible rhonchi. CARDIOVASCULAR: S1 and S2, regular. ABDOMEN: Soft. ASSESSMENT: 1. Rule out coronary artery disease. 2. Chronic obstructive pulmonary disease exacerbation. 3. Tracheobronchitis. PLAN: Cardiac catheterization. Monitor the patient. Bob Bravo MD
[2018-04-03] MEDS: Albuterol-Ipratrop 3 mg / 0.5 (3 ml) UD INH SCH ×4 (00:20→11:20)
[2018-04-03] MEDS: (Novolin R) Insulin Human Regular 100 units/ml vial SC SCH ×4 (07:29→21:39)
[2018-04-03] MEDS: Enoxaparin 40 mg Syringe SC SCH (09:47)
[2018-04-03] MEDS: guaiFENesin 600 mg ER Tab PO SCH ×2 (09:47→17:41)
[2018-04-03] MEDS: MethylPREDNISolone 40 mg Vial IV SCH (09:47)
--- NOTE | 2018-04-03 15:04 | CP.PCM.PN ---
Subjective - Date & Time of Evaluation Date of Evaluation: 04/03/18 Time of Evaluation: 13:40 - Subjective Subjective: Patient seen and examined. Breathing better Slight cough Afebrile No chest pain Status post cardiac cath Objective - Vital Signs/Intake and Output Vital Signs (last 24 hours): Temp Pulse Resp BP Pulse Ox 98.3 F 93 H 20 137/70 97 04/03/18 08:15 04/03/18 12:00 04/03/18 08:15 04/03/18 09:49 04/03/18 08:15 Intake and Output: 04/03/18 04/03/18 06:59 18:59 Output Total 200 Balance -200 - Medications Medications: Current Medications Aspirin (Ecotrin) 81 mg PO DAILY [facility] Last Admin: 04/03/18 09:48 Dose: 81 mg Enoxaparin Sodium (Lovenox) 40 mg SC DAILY [facility] Last Admin: 04/03/18 09:47 Dose: 40 mg Famotidine (Pepcid) 20 mg PO HS [facility] Last Admin: 04/02/18 21:50 Dose: 20 mg Glimepiride (Amaryl) 2 mg PO ACBD [facility] Last Admin: 04/03/18 08:28 Dose: 2 mg Guaifenesin (Mucinex La) 600 mg PO BID [facility] Last Admin: 04/03/18 09:47 Dose: 600 mg Hydrochlorothiazide (Microzide) 12.5 mg PO DAILY [facility] Last Admin: 04/03/18 09:47 Dose: 12.5 mg Hydrocortisone (Cortizone 0.5% Cream) 1 applic TOP BID [facility] Last Admin: 04/03/18 09:48 Dose: 1 applic Insulin Human Regular (Novolin R) 0 unit SC [facility]; Protocol Last Admin: 04/03/18 12:29 Dose: 2 units Losartan Potassium (Cozaar) 100 mg PO DAILY [facility] Last Admin: 04/03/18 09:47 Dose: 100 mg Montelukast Sodium (Singulair) 10 mg PO DAILY [facility] Last Admin: 04/03/18 09:47 Dose: 10 mg Prednisone (Prednisone Tab) 20 mg PO Q24H [facility] Last Admin: 04/03/18 12:59 Dose: 20 mg Rosuvastatin Calcium (Crestor) 5 mg PO HS [facility] Last Admin: 04/02/18 21:50 Dose: 5 mg - Labs Labs: 04/02/18 08:24 04/02/18 08:24 PT 11.5 SECONDS (9.7-12.2) 04/01/18 07:04 INR 1.1 04/01/18 07:04 - Head Exam Head Exam: ATRAUMATIC, NORMOCEPHALIC - ENT Exam ENT Exam: Mucous Membranes Moist - Neck Exam Neck Exam: Normal Inspection - Respiratory Exam Respiratory Exam: Decreased Breath Sounds, Rhonchi - Cardiovascular Exam Cardiovascular Exam: REGULAR RHYTHM - GI/Abdominal Exam GI & Abdominal Exam: Soft, Normal Bowel Sounds Assessment and Plan (1) COPD exacerbation Assessment & Plan: Continue p.o. prednisone Continue nebulizer treatment Possible discharge tomorrow Status: Acute (2) CAD (coronary artery disease) Status: Acute
--- NOTE | 2018-04-03 22:20 | CP.PCM.PN ---
Subjective - Date & Time of Evaluation Date of Evaluation: 04/03/18 Time of Evaluation: 15:15 - Subjective Subjective: dictated Objective - Vital Signs/Intake and Output Vital Signs (last 24 hours): Temp Pulse Resp BP Pulse Ox 97.7 F 92 H 18 134/83 98 04/03/18 21:57 04/03/18 21:57 04/03/18 21:57 04/03/18 21:57 04/03/18 17:37 Intake and Output: 04/03/18 04/04/18 18:59 06:59 Intake Total 200 420 Output Total 300 Balance 200 120 - Medications Medications: Current Medications Albuterol/Ipratropium (Duoneb 3 Mg/0.5 Mg (3 Ml) Ud) 3 ml INH RQ4 [facility] Aspirin (Ecotrin) 81 mg PO DAILY [facility] Last Admin: 04/03/18 09:48 Dose: 81 mg Enoxaparin Sodium (Lovenox) 40 mg SC DAILY [facility] Last Admin: 04/03/18 09:47 Dose: 40 mg Famotidine (Pepcid) 20 mg PO HS [facility] Last Admin: 04/03/18 21:35 Dose: 20 mg Glimepiride (Amaryl) 2 mg PO ACBD [facility] Last Admin: 04/03/18 16:39 Dose: 2 mg Guaifenesin (Mucinex La) 600 mg PO BID [facility] Last Admin: 04/03/18 17:41 Dose: 600 mg Hydrochlorothiazide (Microzide) 12.5 mg PO DAILY [facility] Last Admin: 04/03/18 09:47 Dose: 12.5 mg Hydrocortisone (Cortizone 0.5% Cream) 1 applic TOP BID [facility] Last Admin: 04/03/18 17:41 Dose: 1 applic Insulin Human Regular (Novolin R) 0 unit SC [facility]; Protocol Last Admin: 04/03/18 21:39 Dose: Not Given Losartan Potassium (Cozaar) 100 mg PO DAILY [facility] Last Admin: 04/03/18 09:47 Dose: 100 mg Montelukast Sodium (Singulair) 10 mg PO DAILY [facility] Last Admin: 04/03/18 09:47 Dose: 10 mg Prednisone (Prednisone Tab) 20 mg PO Q24H [facility] Last Admin: 04/03/18 12:59 Dose: 20 mg Rosuvastatin Calcium (Crestor) 5 mg PO HS [facility] Last Admin: 04/03/18 21:35 Dose: 5 mg - Labs Labs: 04/02/18 08:24 04/02/18 08:24 PT 11.5 SECONDS (9.7-12.2) 04/01/18 07:04 INR 1.1 04/01/18 07:04
--- NOTE | 2018-04-03 22:22 | CP.PCM.PN ---
Subjective - Date & Time of Evaluation Date of Evaluation: 04/03/18 Time of Evaluation: 15:35 - Subjective Subjective: dictated Objective - Vital Signs/Intake and Output Vital Signs (last 24 hours): Temp Pulse Resp BP Pulse Ox 97.7 F 92 H 18 134/83 98 04/03/18 21:57 04/03/18 21:57 04/03/18 21:57 04/03/18 21:57 04/03/18 17:37 Intake and Output: 04/03/18 04/04/18 18:59 06:59 Intake Total 200 420 Output Total 300 Balance 200 120 - Medications Medications: Current Medications Albuterol/Ipratropium (Duoneb 3 Mg/0.5 Mg (3 Ml) Ud) 3 ml INH RQ4 [facility] Aspirin (Ecotrin) 81 mg PO DAILY [facility] Last Admin: 04/03/18 09:48 Dose: 81 mg Enoxaparin Sodium (Lovenox) 40 mg SC DAILY [facility] Last Admin: 04/03/18 09:47 Dose: 40 mg Famotidine (Pepcid) 20 mg PO HS [facility] Last Admin: 04/03/18 21:35 Dose: 20 mg Glimepiride (Amaryl) 2 mg PO ACBD [facility] Last Admin: 04/03/18 16:39 Dose: 2 mg Guaifenesin (Mucinex La) 600 mg PO BID [facility] Last Admin: 04/03/18 17:41 Dose: 600 mg Hydrochlorothiazide (Microzide) 12.5 mg PO DAILY [facility] Last Admin: 04/03/18 09:47 Dose: 12.5 mg Hydrocortisone (Cortizone 0.5% Cream) 1 applic TOP BID [facility] Last Admin: 04/03/18 17:41 Dose: 1 applic Insulin Human Regular (Novolin R) 0 unit SC [facility]; Protocol Last Admin: 04/03/18 21:39 Dose: Not Given Losartan Potassium (Cozaar) 100 mg PO DAILY [facility] Last Admin: 04/03/18 09:47 Dose: 100 mg Montelukast Sodium (Singulair) 10 mg PO DAILY [facility] Last Admin: 04/03/18 09:47 Dose: 10 mg Prednisone (Prednisone Tab) 20 mg PO Q24H [facility] Last Admin: 04/03/18 12:59 Dose: 20 mg Rosuvastatin Calcium (Crestor) 5 mg PO HS [facility] Last Admin: 04/03/18 21:35 Dose: 5 mg - Labs Labs: 04/02/18 08:24 04/02/18 08:24 PT 11.5 SECONDS (9.7-12.2) 04/01/18 07:04 INR 1.1 04/01/18 07:04
--- NOTE | 2018-04-03 23:00 | CARDCATH ---
PROCEDURE DATE: 04/01/2018 PROCEDURES: 1. Left heart catheterization. 2. Coronary angiogram. REFERRING PHYSICIAN: Bob Braov MD PERFORMING PHYSICIAN: Raymundo Koch MD CLINICAL INDICATIONS: 1. Chest pain. 2. Abnormal stress test. 3. Diabetes. 4. Hypertension. 5. Hyperlipidemia. DESCRIPTION OF PROCEDURE: After informed consent, the patient was prepped and draped in the usual sterile fashion. A 2% lidocaine was given in the right wrist for local anesthesia. Using micropuncture technique, 6-Libyan sheath was introduced into the right radial artery. A JR4 6-Libyan diagnostic catheter was inserted into left ventricle across the aortic valve. LVEDP is measured. Contrast injected and LV angiogram was done. The catheter was pulled back across the aortic valve. Gradient across the aortic valve was measured, and the same catheter engaged into right coronary artery. Contrast injected and right coronary angiogram was done. Then, the catheter was exchanged to 6-Libyan Denver catheter. Denver catheter engaged into left main coronary artery. Contrast injected and left coronary angiogram was done. The patient tolerated the procedure well. Postprocedure, Terumo radial band applied to right wrist with excellent hemostasis. Radiological supervision and radiological interpretation of the coronary imaging was done. FINDINGS: 1. Left main coronary artery is patent. 2. LAD has distal nonobstructive calcific luminal irregularities. Diagonal branches are patent. 3. Left circumflex is co-dominant artery. Proximal and mid left circumflex is patent. Distal left circumflex has a 50% nonobstructive stenosis. 4. Right coronary artery is small. Distal right coronary artery has 100% occlusion. The patient has collaterals from the left coronary system. 5. LV ejection fraction is approximately 50%. Mild global hypokinesis. EDP is 20. No gradient across the aortic valve. IMPRESSION: 1. Calcific coronary artery disease as described above. Right coronary artery is small and totally occluded distally. However, right coronary artery is receiving collaterals from the left coronary system. 2. Left ventricular ejection fraction is approximately 50%. Mild global hypokinesis. PLAN: Recommend medical management with antiplatelet, statins, and beta-blockers. Raymundo Koch MD [facility] # [id number]
--- NOTE | 2018-04-03 23:15 | CP.PCM.PN ---
Subjective - Date & Time of Evaluation Date of Evaluation: 04/03/18 Time of Evaluation: 15:20 - Subjective Subjective: Patient seen and examined at bedside. Per nursing no acute events occurred overnight. Patient denies any chest pain, abdominal pain, fevers, chills,headaches, dizziness, syncopal episodes, or any other complaints. Physical Examination - Head Exam Head Exam: NORMAL INSPECTION - Eye Exam Eye Exam: EOMI, Normal appearance, PERRL Pupil Exam: NORMAL ACCOMODATION - ENT Exam ENT Exam: Mucous Membranes Moist, Normal Oropharynx - Respiratory Exam Respiratory Exam: Clear to Ausculation Bilateral, NORMAL BREATHING PATTERN. absent: Prolonged Expiratory Phase, Respiratory Distress - Cardiovascular Exam Cardiovascular Exam: +S1, +S2 - GI/Abdominal Exam GI & Abdominal Exam: Soft, Normal Bowel Sounds - Back Exam Back Exam: NORMAL INSPECTION - Neurological Exam Neurological Exam: Alert, Awake, Oriented x3 - Psychiatric Exam Psychiatric exam: Normal Affect, Normal Mood - Skin Skin Exam: Dry, Intact Assessment and Plan - Assessment and Plan (Free Text) Assessment: 72 year old male with a past medical history of hypothyroidism, hyperlipidemia, hypertension and copd presents to the hospital complaining of cough, congestion and shortness of breath for the past three days. Plan: Plan: 1. Shortness of breath Likely secondary to Pulmonary cause. Unlikely origin is Cardiac in nature. Medically optimize patient Troponin(-)x1 BNP 101 on admission Chest/abdomen/pelvis ct: -Emphysematous changes. Bibasilar atelectasis.Hypoattenuation of the liver compatible with hepatic stea tosis. Extensive diverticulosis without CT evidence of acute diverticulitis. Small fat containing bilateral inguinal hernias.Bilateral L5 spondylolysis. -Stress test normal Medications: Duoneb 3ml INH RQ4 [facility] Solu-medrol 40mg IV Q12 [facility] Singulair 10mg PO Daily [facility] Azithromycin 500mg IVPB Q24 [facility] Ceftriaxone 1gm IVPB Daily [facility] Mucinex 600mg PO BID 2. DM -Amaryl 2mg PO ACBD [facility] -Aspirin 81mg po Daily 3.Hyperlipidemia -Crestor 5mg PO HS [facility] 4.Hypertension -Cozaar 100mg PO Daily PPX -Lovenox -Pepcid Moderate CAD/Medical management Objective - Vital Signs/Intake and Output Vital Signs (last 24 hours): Temp Pulse Resp BP Pulse Ox 97.7 F 92 H 18 134/83 98 04/03/18 21:57 04/03/18 21:57 04/03/18 21:57 04/03/18 21:57 04/03/18 17:37 Intake and Output: 04/03/18 04/04/18 18:59 06:59 Intake Total 200 420 Output Total 300 Balance 200 120 - Medications Medications: Current Medications Albuterol/Ipratropium (Duoneb 3 Mg/0.5 Mg (3 Ml) Ud) 3 ml INH RQ4 [facility] Aspirin (Ecotrin) 81 mg PO DAILY [facility] Last Admin: 04/03/18 09:48 Dose: 81 mg Enoxaparin Sodium (Lovenox) 40 mg SC DAILY [facility] Last Admin: 04/03/18 09:47 Dose: 40 mg Famotidine (Pepcid) 20 mg PO HS [facility] Last Admin: 04/03/18 21:35 Dose: 20 mg Glimepiride (Amaryl) 2 mg PO ACBD [facility] Last Admin: 04/03/18 16:39 Dose: 2 mg Guaifenesin (Mucinex La) 600 mg PO BID [facility] Last Admin: 04/03/18 17:41 Dose: 600 mg Hydrochlorothiazide (Microzide) 12.5 mg PO DAILY [facility] Last Admin: 04/03/18 09:47 Dose: 12.5 mg Hydrocortisone (Cortizone 0.5% Cream) 1 applic TOP BID [facility] Last Admin: 04/03/18 17:41 Dose: 1 applic Insulin Human Regular (Novolin R) 0 unit SC [facility]; Protocol Last Admin: 04/03/18 21:39 Dose: Not Given Losartan Potassium (Cozaar) 100 mg PO DAILY [facility] Last Admin: 04/03/18 09:47 Dose: 100 mg Montelukast Sodium (Singulair) 10 mg PO DAILY [facility] Last Admin: 04/03/18 09:47 Dose: 10 mg Prednisone (Prednisone Tab) 20 mg PO Q24H [facility] Last Admin: 04/03/18 12:59 Dose: 20 mg Rosuvastatin Calcium (Crestor) 5 mg PO HS [facility] Last Admin: 04/03/18 21:35 Dose: 5 mg - Labs Labs: 04/02/18 08:24 04/02/18 08:24 PT 11.5 SECONDS (9.7-12.2) 04/01/18 07:04 INR 1.1 04/01/18 07:04
[2018-04-04 01:02] VITALS: RESP 20; O2SAT 95
--- NOTE | 2018-04-04 01:38 | PN ---
DATE: 04/03/2018 SUBJECTIVE: The patient is feeling better. Less short of breath, less cough, less wheezing. He is afebrile. No nausea or vomiting. Cardiac cath is negative. PHYSICAL EXAMINATION: VITAL SIGNS: Blood pressure 134/83, pulse 92, respiratory rate 18, and temperature 97.7. LUNGS: Decreased air entry, positive rhonchi. CVS: S1 and S2, regular. ABDOMEN: Soft. ASSESSMENT: 1. Exacerbation of chronic obstructive pulmonary disease. 2. Noncoronary chest pain. 3. Hypertension. 4. Hyperlipidemia. PLAN: Medical management. Switch to oral steroids. Discontinue antibiotics. Monitor the patient. Bob Bravo MD
[2018-04-04] MEDS: Albuterol-Ipratrop 3 mg / 0.5 (3 ml) UD INH SCH ×4 (04:05→11:10)
[2018-04-04 08:25] VITALS: TEMP 97.7
[2018-04-04] MEDS: (Novolin R) Insulin Human Regular 100 units/ml vial SC SCH ×2 (08:27→12:27)
[2018-04-04] MEDS: guaiFENesin 600 mg ER Tab PO SCH (09:26)
[2018-04-04] MEDS: Enoxaparin 40 mg Syringe SC SCH (09:26)
[2018-04-04 09:28] VITALS: BP 125/72; PULSE 96
--- NOTE | 2018-04-04 09:28 | CP.PCM.PN ---
Subjective - Date & Time of Evaluation Date of Evaluation: 04/04/18 Time of Evaluation: 09:28 - Subjective Subjective: Cardiology Service: Dr. Koch Patient seen and examined at bedside. Per nursing no acute events occurred overnight. Patient denies any chest pain, abdominal pain, fevers, chills,headaches, dizziness, syncopal episodes, or any other complaints. Objective - Vital Signs/Intake and Output Vital Signs (last 24 hours): Temp Pulse Resp BP Pulse Ox 97.7 F 86 20 145/85 95 04/04/18 07:00 04/04/18 07:00 04/04/18 07:00 04/04/18 07:00 04/04/18 07:00 Intake and Output: 04/04/18 04/04/18 06:59 18:59 Intake Total 420 Output Total 300 Balance 120 - Medications Medications: Current Medications Albuterol/Ipratropium (Duoneb 3 Mg/0.5 Mg (3 Ml) Ud) 3 ml INH RQ4 [facility] Last Admin: 04/04/18 04:05 Dose: 3 ml Aspirin (Ecotrin) 81 mg PO DAILY [facility] Last Admin: 04/04/18 09:26 Dose: 81 mg Enoxaparin Sodium (Lovenox) 40 mg SC DAILY [facility] Last Admin: 04/04/18 09:26 Dose: 40 mg Famotidine (Pepcid) 20 mg PO HS [facility] Last Admin: 04/03/18 21:35 Dose: 20 mg Glimepiride (Amaryl) 2 mg PO ACBD [facility] Last Admin: 04/04/18 08:21 Dose: 2 mg Guaifenesin (Mucinex La) 600 mg PO BID [facility] Last Admin: 04/04/18 09:26 Dose: 600 mg Hydrochlorothiazide (Microzide) 12.5 mg PO DAILY [facility] Last Admin: 04/04/18 09:26 Dose: 12.5 mg Hydrocortisone (Cortizone 0.5% Cream) 1 applic TOP BID [facility] Last Admin: 04/04/18 09:27 Dose: 1 applic Insulin Human Regular (Novolin R) 0 unit SC [facility]; Protocol Last Admin: 04/04/18 08:27 Dose: Not Given Losartan Potassium (Cozaar) 100 mg PO DAILY [facility] Last Admin: 04/04/18 09:26 Dose: 100 mg Montelukast Sodium (Singulair) 10 mg PO DAILY [facility] Last Admin: 04/04/18 09:26 Dose: 10 mg Prednisone (Prednisone Tab) 20 mg PO Q24H [facility] Last Admin: 04/03/18 12:59 Dose: 20 mg Rosuvastatin Calcium (Crestor) 5 mg PO HS [facility] Last Admin: 04/03/18 21:35 Dose: 5 mg - Labs Labs: 04/02/18 08:24 04/02/18 08:24 PT 11.5 SECONDS (9.7-12.2) 04/01/18 07:04 INR 1.1 04/01/18 07:04 - Head Exam Head Exam: ATRAUMATIC, NORMAL INSPECTION - Eye Exam Eye Exam: EOMI, Normal appearance, PERRL Pupil Exam: NORMAL ACCOMODATION - ENT Exam ENT Exam: Mucous Membranes Moist, Normal Oropharynx - Cardiovascular Exam Cardiovascular Exam: REGULAR RHYTHM, +S1, +S2. absent: Rubs - GI/Abdominal Exam GI & Abdominal Exam: Soft, Normal Bowel Sounds. absent: Hyperactive Bowel Sounds - Extremities Exam Extremities Exam: Normal Inspection. absent: Pedal Edema - Back Exam Back Exam: NORMAL INSPECTION. absent: paraspinal tenderness - Neurological Exam Neurological Exam: Alert, Awake, Oriented x3 - Psychiatric Exam Psychiatric exam: Normal Affect, Normal Mood - Skin Skin Exam: Dry, Intact Assessment and Plan - Assessment and Plan (Free Text) Assessment: 72 year old male with a past medical history of hypothyroidism, hyperlipidemia, hypertension and copd presents to the hospital complaining of cough, congestion and shortness of breath for the past three days. Plan: Plan: 1. Shortness of breath Likely secondary to Pulmonary cause. Unlikely origin is Cardiac in nature. Medically optimize patient Troponin(-)x1 BNP 101 on admission Chest/abdomen/pelvis ct: -Emphysematous changes. Bibasilar atelectasis.Hypoattenuation of the liver compatible with hepatic steatosis. Extensive diverticulosis without CT evidence of acute diverticulitis. Small fat containing bilateral inguinal hernias.Bilateral L5 spondylolysis. -Stress test normal Medications: Duoneb 3ml INH RQ4 [facility] Solu-medrol 40mg IV Q12 [facility] Singulair 10mg PO Daily [facility] Azithromycin 500mg IVPB Q24 [facility] Ceftriaxone 1gm IVPB Daily [facility] Mucinex 600mg PO BID 2. DM -Amaryl 2mg PO ACBD [facility] -Aspirin 81mg po Daily 3.Hyperlipidemia -Crestor 5mg PO HS [facility] 4.Hypertension -Cozaar 100mg PO Daily PPX -Lovenox -Pepcid Plan discussed with Attending Dr. Koch. Rob Miranda PGY-2
--- NOTE | 2018-04-04 14:38 | CP.PCM.PN ---
Subjective - Date & Time of Evaluation Date of Evaluation: 04/04/18 Time of Evaluation: 12:00 - Subjective Subjective: patietn seen and examined today, states feels better, denies any chest pain, sob, cough , congestion , vss and labs reviewed - stable patient has home oxygen Objective - Vital Signs/Intake and Output Vital Signs (last 24 hours): Temp Pulse Resp BP Pulse Ox 97.7 F 96 H 20 125/72 95 04/04/18 07:00 04/04/18 09:28 04/04/18 07:00 04/04/18 09:28 04/04/18 07:00 Intake and Output: 04/04/18 04/04/18 06:59 18:59 Intake Total 420 Output Total 300 Balance 120 - Medications Medications: Current Medications Albuterol/Ipratropium (Duoneb 3 Mg/0.5 Mg (3 Ml) Ud) 3 ml INH RQ4 [facility] Last Admin: 04/04/18 11:10 Dose: 3 ml Aspirin (Ecotrin) 81 mg PO DAILY [facility] Last Admin: 04/04/18 09:26 Dose: 81 mg Enoxaparin Sodium (Lovenox) 40 mg SC DAILY [facility] Last Admin: 04/04/18 09:26 Dose: 40 mg Famotidine (Pepcid) 20 mg PO HS [facility] Last Admin: 04/03/18 21:35 Dose: 20 mg Glimepiride (Amaryl) 2 mg PO ACBD [facility] Last Admin: 04/04/18 08:21 Dose: 2 mg Guaifenesin (Mucinex La) 600 mg PO BID [facility] Last Admin: 04/04/18 09:26 Dose: 600 mg Hydrochlorothiazide (Microzide) 12.5 mg PO DAILY [facility] Last Admin: 04/04/18 09:26 Dose: 12.5 mg Hydrocortisone (Cortizone 0.5% Cream) 1 applic TOP BID [facility] Last Admin: 04/04/18 09:27 Dose: 1 applic Insulin Human Regular (Novolin R) 0 unit SC [facility]; Protocol Last Admin: 04/04/18 12:27 Dose: 6 units Losartan Potassium (Cozaar) 100 mg PO DAILY [facility] Last Admin: 04/04/18 09:26 Dose: 100 mg Montelukast Sodium (Singulair) 10 mg PO DAILY [facility] Last Admin: 04/04/18 09:26 Dose: 10 mg Prednisone (Prednisone Tab) 20 mg PO Q24H [facility] Last Admin: 04/04/18 13:08 Dose: 20 mg Rosuvastatin Calcium (Crestor) 5 mg PO HS [facility] Last Admin: 04/03/18 21:35 Dose: 5 mg - Labs Labs: 04/02/18 08:24 04/02/18 08:24 PT 11.5 SECONDS (9.7-12.2) 04/01/18 07:04 INR 1.1 04/01/18 07:04 Assessment and Plan - Assessment and Plan (Free Text) Assessment: A/P 72 y/o male,w/PMhx of asthma,CHF, and COPD, admitted with non-productive cough, shortness of breath, wheezing,and chest tightnes s/p cardiac cath- Moderate CAD/Medical management seen by cleared for discharge home today and f/u with his office in 1 week D/w Dr. Bravo, cleared for discharge home today patient states he has home oxygen and all medications
--- NOTE | 2018-04-04 15:39 | CP.PCM.PN ---
Subjective - Date & Time of Evaluation Date of Evaluation: 04/04/18 Time of Evaluation: 09:00 - Subjective Subjective: Patient seen and examined Breathing better Afebrile Denies chest pain, denies fever chills Stable from pulmonary standpoint Discharge patient home on p.o. prednisone Follow-up in the office Objective - Vital Signs/Intake and Output Vital Signs (last 24 hours): Temp Pulse Resp BP Pulse Ox 97.7 F 96 H 20 125/72 95 04/04/18 07:00 04/04/18 09:28 04/04/18 07:00 04/04/18 09:28 04/04/18 07:00 Intake and Output: 04/04/18 04/04/18 06:59 18:59 Intake Total 420 Output Total 300 Balance 120 - Labs Labs: 04/02/18 08:24 04/02/18 08:24 PT 11.5 SECONDS (9.7-12.2) 04/01/18 07:04 INR 1.1 04/01/18 07:04 Assessment and Plan (1) CAD (coronary artery disease) Status: Acute (2) COPD exacerbation Status: Acute
--- NOTE | 2018-04-04 22:41 | CP.PCM.DIS ---
Provider - Provider Date of Admission: 03/28/18 16:18 Attending physician: Bob Bravo MD Consults: 03/28/18 16:39 Physician Consult Stat Comment: sob Consulting Provider: Raymundo Koch Consulting Physician: Raymundo Koch Reason for Consult: cardioology Additional Comments: spoken with 03/28/18 18:29 Cardiology Consult Routine Comment: Consulting Provider: Raymundo Koch Consulting Physician: Raymundo Koch Reason for Consult: dyspnea Pulmonology Consult Routine Comment: Consulting Provider: Romero Palomino Consulting Physician: Romero Palomino Reason for Consult: copd Time Spent in preparation of Discharge (in minutes): 30 Hospital Course - Lab Results Lab Results: Most Recent Lab Values WBC 8.8 K/uL (4.8-10.8) 04/02/18 08:24 RBC 5.11 Mil/uL (4.40-5.90) 04/02/18 08:24 Hgb 13.3 g/dL (12.0-18.0) 04/02/18 08:24 Hct 41.4 % (35.0-51.0) 04/02/18 08:24 MCV 81.1 fL (80.0-94.0) 04/02/18 08:24 MCH 26.0 pg (27.0-31.0) L 04/02/18 08:24 MCHC 32.0 g/dL (33.0-37.0) L 04/02/18 08:24 RDW 17.4 % (11.5-14.5) H 04/02/18 08:24 Plt Count 274 K/uL (130-400) 04/02/18 08:24 MPV 8.5 fL (7.2-11.7) 04/02/18 08:24 Neut % (Auto) 75.2 % (50.0-75.0) H 04/02/18 08:24 Lymph % (Auto) 14.5 % (20.0-40.0) L 04/02/18 08:24 [place] % (Auto) 10.0 % (0.0-10.0) 04/02/18 08:24 Eos % (Auto) 0.1 % (0.0-4.0) 04/02/18 08:24 Baso % (Auto) 0.2 % (0.0-2.0) 04/02/18 08:24 Neut # (Auto) 6.7 K/uL (1.8-7.0) 04/02/18 08:24 Lymph # (Auto) 1.3 K/uL (1.0-4.3) 04/02/18 08:24 [place] # (Auto) 0.9 K/uL (0.0-0.8) H 04/02/18 08:24 Eos # (Auto) 0.0 K/uL (0.0-0.7) 04/02/18 08:24 Baso # (Auto) 0.0 K/uL (0.0-0.2) 04/02/18 08:24 Neutrophils % (Manual) 90 % (50-75) H 03/28/18 12:16 Lymphocytes % (Manual) 4 % (20-40) L 03/28/18 12:16 Monocytes % (Manual) 5 % (0-10) 03/28/18 12:16 Myelocytes % 1 % (0-0) H 03/28/18 12:16 Platelet Estimate Normal (NORMAL) 03/28/18 12:16 Hypochromasia (manual) Slight 03/28/18 12:16 Poikilocytosis (manual Slight 03/28/18 12:16 Anisocytosis (manual) Slight 03/28/18 12:16 Ovalocytes Slight 03/28/18 12:16 PT 11.5 SECONDS (9.7-12.2) 04/01/18 07:04 INR 1.1 04/01/18 07:04 Sodium 138 mmol/L (132-148) 04/02/18 08:24 Potassium 3.7 mmol/L (3.6-5.2) 04/02/18 08:24 Chloride 97 mmol/L (98-107) L 04/02/18 08:24 Carbon Dioxide 35 mmol/L (22-30) H 04/02/18 08:24 Anion Gap 9 (10-20) L 04/02/18 08:24 BUN 22 mg/dL (9-20) H 04/02/18 08:24 Creatinine 1.0 mg/dL (0.8-1.5) 04/02/18 08:24 Est GFR ( Amer) > 60 04/02/18 08:24 Est GFR (Non-Af Amer) > 60 04/02/18 08:24 POC Glucose (mg/dL) 309 mg/dL (65-110) H 04/04/18 11:03 Random Glucose 84 mg/dL (75-110) 04/02/18 08:24 Calcium 9.1 mg/dl (8.6-10.4) 04/02/18 08:24 Total Bilirubin 0.4 mg/dL (0.2-1.3) 04/02/18 08:24 AST 32 U/L (17-59) 04/02/18 08:24 ALT 65 U/L (21-72) 04/02/18 08:24 Alkaline Phosphatase 59 U/L (38-126) 04/02/18 08:24 Total Creatine Kinase 242 U/L (55-170) H 03/28/18 12:16 CK-MB (Mass) 1.70 ng/mL (0.0-3.38) 03/28/18 12:16 Troponin I < 0.0120 ng/mL (0.00-0.120) 03/28/18 12:16 NT-Pro-B Natriuret Pep 101 pg/mL (0-900) 03/28/18 12:16 Total Protein 6.5 g/dL (6.3-8.3) 04/02/18 08:24 Albumin 4.0 g/dL (3.5-5.0) 04/02/18 08:24 Globulin 2.5 gm/dL (2.2-3.9) 04/02/18 08:24 Albumin/Globulin Ratio 1.6 (1.0-2.1) 04/02/18 08:24 Urine Color Yellow (YELLOW) 03/28/18 16:10 Urine Clarity Clear (Clear) 03/28/18 16:10 Urine pH 6.0 (5.0-8.0) 03/28/18 16:10 Ur Specific [place] 1.016 (1.003-1.030) 03/28/18 16:10 Urine Protein Negative mg/dL (NEGATIVE) 03/28/18 16:10 Urine Glucose (UA) 2+ mg/dL (Normal) H 03/28/18 16:10 Urine Ketones Negative mg/dL (NEGATIVE) 03/28/18 16:10 Urine Blood 1+ (NEGATIVE) H 03/28/18 16:10 Urine Nitrate Negative (NEGATIVE) 03/28/18 16:10 Urine Bilirubin Negative (NEGATIVE) 03/28/18 16:10 Urine Urobilinogen Normal mg/dL (0.2-1.0) 03/28/18 16:10 Ur Leukocyte Esterase Neg Sonya/uL (Negative) 03/28/18 16:10 Urine WBC (Auto) < 1 /hpf (0-5) 03/28/18 16:10 Urine RBC (Auto) 1 /hpf (0-3) 03/28/18 16:10 Discharge Exam - Head Exam Head Exam: ATRAUMATIC, NORMOCEPHALIC Discharge Plan - Discharge Medications Prescriptions: guaiFENesin [Mucinex LA] 600 mg PO BID #20 tab - Follow Up Plan Condition: GOOD Disposition: HOME/ ROUTINE Instructions: Type 2 Diabetes, Heart Failure, Adult (DC), Exacerbation of COPD (DC), Guaifenesin Additional Instructions: Please f/u with Dr. Palomino office in 1 week ( f/u visit) Please f/u with Dr. Turner office as scheduled appointment Please continue medications as per med. rec. Please cook pickled meat mucinex from pharmacy - e prescribed Referrals: Romero Palomino MD [Staff Provider] - Raymundo Koch MD [Staff Provider] - Sofie Odom MD [Staff Provider] - Bob Bravo MD [Staff Provider] -
--- NOTE | 2018-04-05 21:43 | DS ---
DISCHARGE DIAGNOSES: 1. Acute exacerbation of chronic obstructive pulmonary disease. 2. Tracheobronchitis. 3. Noncoronary chest pain. HISTORY OF PRESENT ILLNESS: A 72-year-old male with history of type 2 diabetes, hypertension, hyperlipidemia, who is compliant with diet, medication, and followup. The patient was admitted with COPD, cough, congestion, shortness of breath, wheezing, and he has noncoronary chest pain which is nonexertional, nonradiating. [place] was ruled out on three sets of negative cardiac enzymes, and the patient's cardiac cath is negative for any obstructive disease. The patient also was treated with Solu-Medrol, oxygen nebulizer, and Solu-Medrol is being tapered. He is being discharged with outpatient followup. CONDITION UPON DISCHARGE: Stable. Bob Bravo MD
== END 2018-04-04 15:01 | disposition home or self-care (01) | DRG 191 ==
LOC: C.ER 10:50 → C.9E 16:18 → C.5S 03-29 13:07
PROVIDERS: ADMIT Internal Medicine; ATTEND Internal Medicine
PROC: 4A023N7 Measurement of Cardiac Sampling and Pressure, Left Heart, Percutaneous Approach (ICD-10-PCS; principal; 2018-04-01)
PROC: B2111ZZ Fluoroscopy of Multiple Coronary Arteries using Low Osmolar Contrast (ICD-10-PCS; 2018-04-01)
DX: J44.1 Chronic obstructive pulmonary disease with (acute) exacerbation (principal); J98.11 Atelectasis; I25.10 Atherosclerotic heart disease of native coronary artery without angina pectoris; E11.9 Type 2 diabetes mellitus without complications; E03.9 Hypothyroidism, unspecified; I11.0 Hypertensive heart disease with heart failure; E78.5 Hyperlipidemia, unspecified; I50.9 Heart failure, unspecified; Z87.891 Personal history of nicotine dependence; Z99.81 Dependence on supplemental oxygen; I25.82 Chronic total occlusion of coronary artery; J40 Bronchitis, not specified as acute or chronic

== ENCOUNTER 2018-04-15 13:17 | Observation (INO) | payer MEDICARE ==
[2018-04-15 13:29] VITALS: BMI 29.3
[2018-04-15] MEDS: Albuterol-Ipratrop 3 mg / 0.5 (3 ml) UD IH SCH ×3 (14:00→14:30)
[2018-04-15] MEDS ORDERED: MethylPREDNISolone 40 mg Vial IVP STA (14:00)
[2018-04-15] MEDS ORDERED: Albuterol-Ipratrop 3 mg / 0.5 (3 ml) UD ONE (14:28)
--- NOTE | 2018-04-15 14:34 | RAD ---
Date of service: 04/15/2018 HISTORY: Evaluate for pneumonia COMPARISON: 03/28/2018. TECHNIQUE: Chest PA and lateral FINDINGS: LINES AND TUBES: None. LUNG AND PLEURA: The lungs are well inflated and clear. No pleural effusion or pneumothorax. HEART AND MEDIASTINUM: The heart is not enlarged. No aortic atherosclerotic calcifications present. The hilar and mediastinal contours are within normal limits. SKELETAL STRUCTURES: The bony structures are within normal limits for the patient's age. VISUALIZED UPPER ABDOMEN: Normal. OTHER FINDINGS: None. IMPRESSION: No active pulmonary disease.
[2018-04-15 14:36] LABS: ALB/GLOB RATIO 1.4 (1.0-2.1); ALBUMIN 4.2 g/dL (3.5-5.0); ALT/SGPT 54 U/L (21-72); AST/SGOT 28 U/L (17-59); BLOOD UREA NITROGEN 18 mg/dL (9-20); CALCIUM 9.5 mg/dl (8.6-10.4); GFR NON-AFRICAN AMERICAN > 60
--- NOTE | 2018-04-15 14:42 | C.PDOC ---
History Of Present Illness 72 y/o male with a PMHx of DM, HTN, CHF, and COPD, presents to the ED complaining of shortness of breath that began this morning. Patient went to see his doctor and was referred to the ED. He also reports cough productive of phlegm, and has abdominal discomfort when coughing. Patient otherwise denies nausea, vomiting, fever, chills, diaphoresis, dizziness, visual changes, body aches, or leg pain or swelling. Time Seen by Provider: 04/15/18 13:34 Chief Complaint (Nursing): Chest Pain History Per: Patient History/Exam Limitations: no limitations Onset/Duration Of Symptoms: Hrs Current Symptoms Are (Timing): Still Present Past Medical History Reviewed: Historical Data, Nursing Documentation, Vital Signs Vital Signs: Last Vital Signs Temp 99 F 04/15/18 13:29 Pulse 152 H 04/15/18 13:29 Resp 24 04/15/18 13:29 BP 114/80 04/15/18 13:29 Pulse Ox 95 04/15/18 13:29 - Medical History PMH: Anxiety, Asthma, Bronchitis, CHF, COPD, Diabetes, Gastritis, HTN, Hypercholesterolemia Denies: Hypothyroidism, Chronic Kidney Disease Surgical History: Endoscopy Denies: Coronary Stent - [facility] Procedures ASSISTANCE WITH RESPIRATORY VENTILATION, 24-96 HRS, CPAP (02/23/15) CORONAR ARTERIOGR-2 CATH (12/28/12) FLUOROSCOPY OF MULT COR ART USING L OSM CONTRAST (03/28/18) LEFT HEART CARDIAC CATH (12/28/12) LT HEART ANGIOCARDIOGRAM (12/28/12) MEASURE OF CARDIAC SAMPL & PRESSURE, L HEART, PERC APPROACH (03/28/18) NEBULIZER THERAPY (02/17/13) NON-INVASIVE MECHANICAL VENTILATION (10/25/14) Family History: States: Unknown Family Hx - Social History Hx Tobacco Use: Yes Hx Alcohol Use: No Hx Substance Use: No - Immunization History Hx Tetanus Toxoid Vaccination: Yes Hx Influenza Vaccination: Yes Hx Pneumococcal Vaccination: Yes Review Of Systems Except As Marked, All Systems Reviewed And Found Negative. Constitutional: Negative for: Fever, Chills, Sweats Eyes: Negative for: Vision Change Cardiovascular: Negative for: Chest Pain, Palpitations Respiratory: Positive for: Cough, Shortness of Breath Gastrointestinal: Positive for: Abdominal Pain (when coughing). Negative for: Nausea, Vomiting, Diarrhea Neurological: Negative for: Weakness, Headache, Dizziness Physical Exam - Physical Exam Additional Physical Exam Comments: Constitutional: No acute distress. Head: Normocephalic. Atraumatic. Eyes: PERRL. ENT: Moist mucous membranes. Neck: Supple. Cardiovascular: Tachycardic. Radial pulse 2+ bilaterally. Chest: No tenderness. Respiratory: Clear to auscultation bilaterally. GI: Soft. Nontender. Nondistended. Back: No CVA tenderness. Musculoskeletal: No tenderness or swelling of extremities. Skin: No rash. Neurologic: Alert, no focal deficit. ED Course And Treatment - Laboratory Results Result Diagrams: 04/15/18 14:17 04/15/18 14:17 Lab Results: Total Bilirubin 0.8 mg/dL (0.2-1.3) 04/15/18 14:17 AST 28 U/L (17-59) 04/15/18 14:17 ALT 54 U/L (21-72) 04/15/18 14:17 Alkaline Phosphatase 62 U/L (38-126) 04/15/18 14:17 Total Protein 7.1 g/dL (6.3-8.3) 04/15/18 14:17 Albumin 4.2 g/dL (3.5-5.0) 04/15/18 14:17 Globulin 2.9 gm/dL (2.2-3.9) 04/15/18 14:17 Albumin/Globulin Ratio 1.4 (1.0-2.1) 04/15/18 14:17 O2 Sat by Pulse Oximetry: 95 (RA) Pulse Ox Interpretation: Normal - Other Rad CXR X-Ray: Read By Radiologist Interpretation: Accession No. : [id number]. Patient Name / ID : MIKEY CALLAHAN / [id number]. Exam Date : 04/15/2018 14:01:06 ( Approved ). Study Comment : Sex / Age : M / 72Y. Creator : Niki Gill MD. Dictator : Niki Gill MD. Material Mover : Internal Auditor : Niki Gill MD. Approver2 : Report Date : 04/15/2018 14:31:19. My Comment : . Date of service: 04/15/2018. HISTORY: Evaluate for pneumonia. COMPARISON: 03/28/2018. TECHNIQUE: Chest PA and lateral. FINDINGS: LINES AND TUBES: None. LUNG AND PLEURA: The lungs are well inflated and clear. No pleural effusion or pneumothorax. HEART AND MEDIASTINUM: The heart is not enlarged. No aortic atherosclerotic calcifications present. The hilar and mediastinal contours are within normal limits. SKELETAL STRUCTURES: The bony structures are within normal limits for the patient's age. VISUALIZED UPPER ABDOMEN: Normal. OTHER FINDINGS: None. IMPRESSION: No active pulmonary disease. Medical Decision Making Medical Decision Making: Plan: - Blood work with cardiac enzymes - EKG - Chest x-ray - Duoneb x 3 - 125 mg IV Solu-medrol - Reassess EKG: NSR @ 126 bpm, No ST elevations CXR no acute disease. Patient continues to have shortness of breath despite treatments. Dr. Bravo accepts to his service. Disposition - Disposition Disposition: HOSPITALIZED Disposition Time: 16:00 Condition: FAIR Forms: [facility] (Georgian) - Clinical Impression Clinical Impression: COPD exacerbation - Scribe Statement The provider has reviewed the documentation as recorded by the Aronibkarin Gould Provider Attestation: All medical record entries made by the Aronibkarin were at my direction and personally dictated by me. I have reviewed the chart and agree that the record accurately reflects my personal performance of the history, physical exam, medical decision making, and the department course for this patient. I have also personally directed, reviewed, and agree with the discharge instructions and disposition.
[2018-04-15 14:45] LABS: BASO # 0.1 K/uL (0.0-0.2); EOS % 0.3 % (0.0-4.0); LYMPH # 1.4 K/uL (1.0-4.3); LYMPH % 11.7 % (20.0-40.0); MEAN CORPUSCULAR HGB CONC 30.5 g/dL (33.0-37.0); MEAN PLATELET VOLUME 8.3 fL (7.2-11.7); MONO # 0.8 K/uL (0.0-0.8); MONO % 6.4 % (0.0-10.0); NEUT # 9.9 K/uL (1.8-7.0); NEUT % 80.6 % (50.0-75.0); NRBC % 0.1 % (0.0-2.0); RBC 5.11 Mil/uL (4.40-5.90); WHITE BLOOD COUNT 12.2 K/uL (4.8-10.8)
[2018-04-15 14:51] LABS: HEMOGLOBIN 12.8 g/dL (12.0-18.0)
[2018-04-15 14:52] LABS: B-TYPE NATRIURETIC PEPTIDE 97.3 pg/mL (0-900); CK-MB 1.39 ng/mL (0.0-3.38)
[2018-04-15] MEDS: (Novolin R) Insulin Human Regular 100 units/ml vial SC SCH (22:30)
[2018-04-16] MEDS: Albuterol-Ipratrop 3 mg / 0.5 (3 ml) UD INH SCH ×6 (00:13→19:52)
[2018-04-16] MEDS: (Novolin R) Insulin Human Regular 100 units/ml vial SC SCH ×5 (02:47→21:44)
[2018-04-16] MEDS: MethylPREDNISolone 40 mg Vial IVP SCH ×2 (10:00→22:18)
[2018-04-16] MEDS: Enoxaparin 40 mg Syringe SC SCH (10:00)
[2018-04-16] MEDS: guaiFENesin 600 mg ER Tab PO SCH ×2 (10:00→17:47)
--- NOTE | 2018-04-16 13:09 | CP.PCM.CON ---
History of Present Illness - History of Present Illness History of Present Illness: Reason for consultation: Shortness of breath and cough 72-year-old male with history of COPD, hypothyroidism, hypertension who present ed complaining of shortness of breath and cough started yesterday. Cough is mostly dry but sometimes productive of clear phlegm. Patient was recently discharged from the hospital and treated for COPD exacerbation Patient also report dyspnea on walking in the street. Patient denies any orthopnea, chest pain, headaches, dizziness, syncopal episodes, abdominal pain, recent sick contacts, or any other complaints. Medical history:copd, hypertension, hyperlipidemia, hypothyroidism Allergies: Seasonal Surgical history:Endoscopy, 2 Cardiac Caths (both in 2012 showing 60% stenosis of circumflex artery) Social history: Former smoker (Quit in 1983). Denies alcohol use. Denies illicit drug use. Review of Systems - Review of Systems All systems: reviewed and no additional remarkable complaints except (Complaining of shortness of breath) Past Patient History - Infectious Disease Hx of Infectious Diseases: None - Tetanus Immunizations Tetanus Immunization: Unknown - Past Medical History & Family History Past Medical History?: Yes - Past Social History Smoking Status: Former Smoker - CARDIAC Hx Congestive Heart Failure: Yes Hx Hypercholesterolemia: Yes Hx Hypertension: Yes - PULMONARY Hx Asthma: Yes Hx Bronchitis: Yes Hx Chronic Obstructive Pulmonary Disease (COPD): Yes - NEUROLOGICAL Hx Neurological Disorder: No - HEENT Hx HEENT Problems: No - RENAL Hx Chronic Kidney Disease: No - ENDOCRINE/METABOLIC Hx Hypothyroidism: No - HEMATOLOGICAL/ONCOLOGICAL Hx Blood Disorders: No - INTEGUMENTARY Hx Dermatological Problems: No - MUSCULOSKELETAL/RHEUMATOLOGICAL Hx Musculoskeletal Disorders: No - GASTROINTESTINAL Hx Gastritis: Yes - GENITOURINARY/GYNECOLOGICAL Hx Genitourinary Disorders: No - PSYCHIATRIC Hx Anxiety: Yes Hx Substance Use: No - SURGICAL HISTORY Hx Coronary Stent: No - ANESTHESIA Hx Anesthesia: Yes Hx Anesthesia Reactions: No Hx Malignant Hyperthermia: No Meds Allergies/Adverse Reactions: Allergies Allergy/AdvReac Type Severity Reaction Status Date / Time SEASONAL Allergy Uncoded 04/15/18 13:29 - Medications Medications: Current Medications Acetaminophen (Tylenol 325mg Tab) 650 mg PO Q4 PRN PRN Reason: Pain, Mild (1-3) Acetylcysteine (Acetylcysteine 20%) 4 ml INH RQ4 [facility] Albuterol/Ipratropium (Duoneb 3 Mg/0.5 Mg (3 Ml) Ud) 3 ml INH RQ4 [facility] Last Admin: 04/16/18 11:13 Dose: 3 ml Aspirin (Ecotrin) 81 mg PO DAILY [facility] Last Admin: 04/16/18 10:00 Dose: 81 mg Docusate Sodium (Colace) 100 mg PO DAILY [facility] Last Admin: 04/16/18 10:00 Dose: 100 mg Enoxaparin Sodium (Lovenox) 40 mg SC DAILY [facility] Last Admin: 04/16/18 10:00 Dose: 40 mg Famotidine (Pepcid) 20 mg PO DAILY [facility] Last Admin: 04/16/18 10:00 Dose: 20 mg Glimepiride (Amaryl) 2 mg PO ACBD [facility] Last Admin: 04/16/18 07:44 Dose: 2 mg Guaifenesin (Mucinex La) 600 mg PO BID [facility] Last Admin: 04/16/18 10:00 Dose: 600 mg Insulin Human Regular (Novolin R) 0 unit SC [facility]; Protocol Last Admin: 04/16/18 11:47 Dose: 2 unit Losartan Potassium (Cozaar) 50 mg PO DAILY [facility] Last Admin: 04/16/18 10:00 Dose: 50 mg Methylprednisolone (Solu-Medrol) 40 mg IVP Q12 [facility] Last Admin: 04/16/18 10:00 Dose: 40 mg Montelukast Sodium (Singulair) 10 mg PO DAILY [facility] Last Admin: 04/16/18 10:00 Dose: 10 mg Rosuvastatin Calcium (Crestor) 5 mg PO HS [facility] Last Admin: 04/15/18 22:30 Dose: 5 mg Physical Exam - Head Exam Head Exam: ATRAUMATIC, NORMOCEPHALIC - Eye Exam Eye Exam: Normal appearance - ENT Exam ENT Exam: Mucous Membranes Moist - Neck Exam Neck exam: Positive for: Normal Inspection - Respiratory Exam Respiratory Exam: Decreased Breath Sounds, Rhonchi, Wheezes - Cardiovascular Exam Cardiovascular Exam: REGULAR RHYTHM Results - Vital Signs Recent Vital Signs: Last Vital Signs Temp 97.3 F L 04/16/18 07:00 Pulse 89 04/16/18 07:00 Resp 20 04/16/18 07:00 BP 120/78 04/16/18 07:00 Pulse Ox 100 04/16/18 08:00 - Labs Result Diagrams: 04/15/18 14:17 04/15/18 14:17 Labs: Laboratory Results - last 24 hr 02/15/19 02/15/19 02/15/19 14:17 14:17 15:13 WBC 12.2 H RBC 5.11 Hgb 12.8 Hct 41.9 MCV 82.0 MCH 25.0 L MCHC 30.5 L RDW 18.0 H Plt Count 322 MPV 8.3 Neut % (Auto) 80.6 H Lymph % (Auto) 11.7 L Bee % (Auto) 6.4 Eos % (Auto) 0.3 Baso % (Auto) 1.0 Neut # (Auto) 9.9 H Lymph # (Auto) 1.4 Bee # (Auto) 0.8 Eos # (Auto) 0.0 Baso # (Auto) 0.1 Sodium 138 Potassium 4.3 Chloride 98 Carbon Dioxide 31 H Anion Gap 13 BUN 18 Creatinine 1.1 Est GFR ( Amer) > 60 Est GFR (Non-Af Amer) > 60 POC Glucose (mg/dL) Random Glucose 86 Calcium 9.5 Total Bilirubin 0.8 AST 28 ALT 54 Alkaline Phosphatase 62 Total Creatine Kinase 79 CK-MB (Mass) 1.39 Troponin I < 0.0120 NT-Pro-B Natriuret Pep 97.3 Total Protein 7.1 Albumin 4.2 Globulin 2.9 Albumin/Globulin Ratio 1.4 Influenza Typ A,B (EIA) Negative for flu a/b 04/15/18 04/16/18 04/16/18 21:58 02:02 06:15 WBC RBC Hgb Hct MCV MCH MCHC RDW Plt Count MPV Neut % (Auto) Lymph % (Auto) Bee % (Auto) Eos % (Auto) Baso % (Auto) Neut # (Auto) Lymph # (Auto) Bee # (Auto) Eos # (Auto) Baso # (Auto) Sodium Potassium Chloride Carbon Dioxide Anion Gap BUN Creatinine Est GFR ( Amer) Est GFR (Non-Af Amer) POC Glucose (mg/dL) 399 H 358 H 226 H Random Glucose Calcium Total Bilirubin AST ALT Alkaline Phosphatase Total Creatine Kinase CK-MB (Mass) Troponin I NT-Pro-B Natriuret Pep Total Protein Albumin Globulin Albumin/Globulin Ratio Influenza Typ A,B (EIA) 04/16/18 11:20 WBC RBC Hgb Hct MCV MCH MCHC RDW Plt Count MPV Neut % (Auto) Lymph % (Auto) Bee % (Auto) Eos % (Auto) Baso % (Auto) Neut # (Auto) Lymph # (Auto) Bee # (Auto) Eos # (Auto) Baso # (Auto) Sodium Potassium Chloride Carbon Dioxide Anion Gap BUN Creatinine Est GFR ( Amer) Est GFR (Non-Af Amer) POC Glucose (mg/dL) 176 H Random Glucose Calcium Total Bilirubin AST ALT Alkaline Phosphatase Total Creatine Kinase CK-MB (Mass) Troponin I NT-Pro-B Natriuret Pep Total Protein Albumin Globulin Albumin/Globulin Ratio Influenza Typ A,B (EIA) Assessment & Plan (1) COPD exacerbation Assessment and Plan: Continue nebulizer treatment, steroids Long-acting muscarinic and beta agonist Status: Acute
[2018-04-16] MEDS: Acetylcysteine 20% Inhal Soln (4ml) INH SCH ×2 (15:46→19:52)
[2018-04-16 16:45] VITALS: RESP 20
--- NOTE | 2018-04-16 20:19 | CP.PCM.CON ---
History of Present Illness - History of Present Illness History of Present Illness: 72 y/o male with a PMHx of DM, HTN, CHF, and COPD, presents to the ED complaining of shortness of breath that began this morning. Patient went to see his doctor and was referred to the ED. He also reports cough productive of phlegm, and has abdominal discomfort when coughing. Patient otherwise denies nausea, vomiting, fever, chills, diaphoresis, dizziness, visual changes, body aches, or leg pain or swelling. Chief Complaint (Nursing): Chest Pain and dyspnea History Per: Patient History/Exam Limitations: no limitations Onset/Duration Of Symptoms: Hrs Current Symptoms Are (Timing): Still Present Past Medical History - Medical History PMH: Anxiety, Asthma, Bronchitis, CHF, COPD, Diabetes, Gastritis, HTN, Hypercholesterolemia Denies: Hypothyroidism, Chronic Kidney Disease Surgical History: Endoscopy Denies: Coronary Stent - [facility] Procedures ASSISTANCE WITH RESPIRATORY VENTILATION, 24-96 HRS, CPAP (02/23/15) CORONAR ARTERIOGR-2 CATH (12/28/12) FLUOROSCOPY OF MULT COR ART USING L OSM CONTRAST (03/28/18) LEFT HEART CARDIAC CATH (12/28/12) LT HEART ANGIOCARDIOGRAM (12/28/12) MEASURE OF CARDIAC SAMPL & PRESSURE, L HEART, PERC APPROACH (03/28/18) NEBULIZER THERAPY (02/17/13) NON-INVASIVE MECHANICAL VENTILATION (10/25/14) Family History: States: Unknown Family Hx - Social History Hx Tobacco Use: Yes Hx Alcohol Use: No Hx Substance Use: No - Immunization History Hx Tetanus Toxoid Vaccination: Yes Hx Influenza Vaccination: Yes Hx Pneumococcal Vaccination: Yes Review Of Systems Except As Marked, All Systems Reviewed And Found Negative. Constitutional: Negative for: Fever, Chills, Sweats Eyes: Negative for: Vision Change Cardiovascular: Negative for: Chest Pain, Palpitations Respiratory: Positive for: Cough, Shortness of Breath Gastrointestinal: Positive for: Abdominal Pain (when coughing). Negative for: Nausea, Vomiting, Diarrhea Neurological: Negative for: Weakness, Headache, Dizziness Physical Exam - Physical Exam Additional Physical Exam Comments: Constitutional: No acute distress. Head: Normocephalic. Atraumatic. Eyes: PERRL. ENT: Moist mucous membranes. Neck: Supple. Cardiovascular: Tachycardic. Radial pulse 2+ bilaterally. Chest: No tenderness. Respiratory: Clear to auscultation bilaterally. GI: Soft. Nontender. Nondistended. Back: No CVA tenderness. Musculoskeletal: No tenderness or swelling of extremities. Skin: No rash. Neurologic: Alert, no focal deficit. Past Patient History - Infectious Disease Hx of Infectious Diseases: None - Tetanus Immunizations Tetanus Immunization: Unknown - Past Medical History & Family History Past Medical History?: Yes - Past Social History Smoking Status: Former Smoker - CARDIAC Hx Congestive Heart Failure: Yes Hx Hypercholesterolemia: Yes Hx Hypertension: Yes - PULMONARY Hx Asthma: Yes Hx Bronchitis: Yes Hx Chronic Obstructive Pulmonary Disease (COPD): Yes - NEUROLOGICAL Hx Neurological Disorder: No - HEENT Hx HEENT Problems: No - RENAL Hx Chronic Kidney Disease: No - ENDOCRINE/METABOLIC Hx Hypothyroidism: No - HEMATOLOGICAL/ONCOLOGICAL Hx Blood Disorders: No - INTEGUMENTARY Hx Dermatological Problems: No - MUSCULOSKELETAL/RHEUMATOLOGICAL Hx Musculoskeletal Disorders: No - GASTROINTESTINAL Hx Gastritis: Yes - GENITOURINARY/GYNECOLOGICAL Hx Genitourinary Disorders: No - PSYCHIATRIC Hx Anxiety: Yes Hx Substance Use: No - SURGICAL HISTORY Hx Coronary Stent: No - ANESTHESIA Hx Anesthesia: Yes Hx Anesthesia Reactions: No Hx Malignant Hyperthermia: No Meds Allergies/Adverse Reactions: Allergies Allergy/AdvReac Type Severity Reaction Status Date / Time SEASONAL Allergy Uncoded 04/15/18 13:29 - Medications Medications: Current Medications Acetaminophen (Tylenol 325mg Tab) 650 mg PO Q4 PRN PRN Reason: Pain, Mild (1-3) Acetylcysteine (Acetylcysteine 20%) 4 ml INH RQ4 [facility] Last Admin: 04/16/18 19:52 Dose: 4 ml Albuterol/Ipratropium (Duoneb 3 Mg/0.5 Mg (3 Ml) Ud) 3 ml INH RQ4 [facility] Last Admin: 04/16/18 19:52 Dose: 3 ml Aspirin (Ecotrin) 81 mg PO DAILY [facility] Last Admin: 04/16/18 10:00 Dose: 81 mg Docusate Sodium (Colace) 100 mg PO DAILY [facility] Last Admin: 04/16/18 10:00 Dose: 100 mg Enoxaparin Sodium (Lovenox) 40 mg SC DAILY [facility] Last Admin: 04/16/18 10:00 Dose: 40 mg Famotidine (Pepcid) 20 mg PO DAILY [facility] Last Admin: 04/16/18 10:00 Dose: 20 mg Glimepiride (Amaryl) 2 mg PO ACBD [facility] Last Admin: 04/16/18 17:47 Dose: 2 mg Guaifenesin (Mucinex La) 600 mg PO BID [facility] Last Admin: 04/16/18 17:47 Dose: 600 mg Insulin Human Regular (Novolin R) 0 unit SC [facility]; Protocol Last Admin: 04/16/18 17:46 Dose: 8 unit Losartan Potassium (Cozaar) 50 mg PO DAILY [facility] Last Admin: 04/16/18 10:00 Dose: 50 mg Methylprednisolone (Solu-Medrol) 40 mg IVP Q12 [facility] Last Admin: 04/16/18 10:00 Dose: 40 mg Montelukast Sodium (Singulair) 10 mg PO DAILY [facility] Last Admin: 04/16/18 10:00 Dose: 10 mg Rosuvastatin Calcium (Crestor) 5 mg PO HS [facility] Last Admin: 04/15/18 22:30 Dose: 5 mg Results - Vital Signs Recent Vital Signs: Last Vital Signs Temp 97.6 F 04/16/18 15:43 Pulse 99 H 04/16/18 15:43 Resp 20 04/16/18 15:43 BP 101/66 04/16/18 15:43 Pulse Ox 93 L 04/16/18 15:43 - Labs Result Diagrams: 04/15/18 14:17 04/15/18 14:17 Labs: Laboratory Results - last 24 hr 04/15/18 04/16/18 04/16/18 21:58 02:02 06:15 POC Glucose (mg/dL) 399 H 358 H 226 H 04/16/18 11:20 POC Glucose (mg/dL) 176 H Assessment & Plan - Assessment and Plan (Free Text) Assessment: 1. Shortness of breath Likely secondary to Pulmonary cause. Unlikely origin is Cardiac in nature. Medically optimize patient Troponin(-) BNP 97 on admission Chest/abdomen/pelvis ct: -Emphysematous changes. Bibasilar atelectasis.Hypoattenuation of the liver compatible with hepatic steatosis. Extensive diverticulosis without CT evidence of acute diverticulitis. Small fat containing bilateral inguinal hernias.Bilateral L5 spondylolysis. -Stress test normal Medications: Duoneb 3ml INH RQ4 [facility] Solu-medrol 40mg IV Q12 [facility] Singulair 10mg PO Daily [facility] Azithromycin 500mg IVPB Q24 [facility] Ceftriaxone 1gm IVPB Daily [facility] Mucinex 600mg PO BID 2. DM -Amaryl 2mg PO ACBD [facility] -ISS -Aspirin 81mg po Daily 3.Hyperlipidemia -Crestor 5mg PO HS [facility] 4.Hypertension -Cozaar 100mg PO Daily PPX -Lovenox -Pepcid Moderate CAD/Medical management
[2018-04-17] MEDS ORDERED: Promethazine 12.5 mg/10 ml Syrup PO STA (01:13)
[2018-04-17] MEDS: Acetylcysteine 20% Inhal Soln (4ml) INH SCH ×7 (01:37→23:58)
[2018-04-17] MEDS: Albuterol-Ipratrop 3 mg / 0.5 (3 ml) UD INH SCH ×7 (01:37→23:58)
--- NOTE | 2018-04-17 03:07 | HP ---
CHIEF COMPLIANT: Shortness of breath and cough x1 day. HISTORY OF PRESENT ILLNESS: This is a 72-year-old male with history of chronic obstructive pulmonary disease, hypertension, hypothyroidism, and hyperlipidemia. Since yesterday, he has been having cough, congestion, shortness of breath, and white sputum production. There is no fever, no nausea or vomiting. The patient has history of COPD, and he was recently at [facility]. There, he was treated, stabilized, and discharged. The patient gets dyspnea at rest, cough, and wheezing. The patient gets dyspnea on exertion. The patient denies any orthopnea or PND. No chest pain. He has chest congestion. He has chest pain when coughing. He denies any abdominal pain, dizziness, or vertigo. He denies any nausea, vomiting, or diarrhea. He denies any polyuria, polydipsia, or polyphagia. He denies any history of hematuria or pyuria. PAST MEDICAL HISTORY: COPD, hypertension. The patient had cardiac cath done on last admission, which has been denying. SOCIAL HISTORY: He is an ex-smoker, quit in 1983. He is nonalcoholic. MEDICATIONS: His current medications at home are guaifenesin, prednisone, omeprazole, Singulair, Hyzaar, Levoxyl, , Xopenex, Amaryl, Pepcid, vitamin D, Lipitor, and DuoNeb. PHYSICAL EXAMINATION: GENERAL: An elderly male in [id number] respiratory distress. VITAL SIGNS: Blood pressure is 101/66, pulse 77, respiratory rate is 22, and temperature 98. SKIN: Senile turgor. The patient has bruises on the arms. No rashes. HEENT: Atraumatic, normocephalic. Negative pallor. Negative jaundice. Extraocular movements are intact. NECK: Supple, using accessory muscle for respiration. No JVD. No lymph node. CHEST WALL: Barrel-shaped chest with no gynecomastia. LUNGS: Bilaterally decreased air entry. Bilateral inspiratory and expiratory rhonchi. CARDIOVASCULAR SYSTEM: PMI in fifth intercostal space. S1 and S2 regular. ABDOMEN: Soft, nontender. Bowel sounds are positive. RECTAL: Enlarged prostate. No masses. No bleed. EXTREMITIES: No clubbing, cyanosis, or edema. CENTRAL NERVOUS SYSTEM: Awake, alert, and oriented x3. ASSESSMENT: 1. Acute exacerbation of chronic obstructive pulmonary disease. 2. Hypertension. 3. Hypothyroidism. 4. Hyperlipidemia. PLAN: Admit. Detailed orders are written. The patient is on Solu-Medrol, oxygen, nebulizer. A pulmonary consult has been requested. He will be monitored closely. Bob Bravo MD
[2018-04-17] MEDS: (Novolin R) Insulin Human Regular 100 units/ml vial SC SCH ×4 (08:30→21:49)
[2018-04-17] MEDS ORDERED: guaiFENesin 200 mg/10 ml Syrup UD PO PRN (08:36)
[2018-04-17] MEDS: guaiFENesin 600 mg ER Tab PO SCH ×2 (09:39→18:17)
[2018-04-17] MEDS: MethylPREDNISolone 40 mg Vial IVP SCH ×2 (09:40→22:21)
[2018-04-17] MEDS: Enoxaparin 40 mg Syringe SC SCH (09:40)
--- NOTE | 2018-04-17 18:03 | CP.PCM.PN ---
Subjective - Date & Time of Evaluation Date of Evaluation: 04/17/18 Time of Evaluation: 17:20 - Subjective Subjective: Patient seen and examined Breathing much improved Slight cough Afebrile Complaining of itchy throat Taper steroids Nebulizer treatment Discharge home in the morning Objective - Vital Signs/Intake and Output Vital Signs (last 24 hours): Temp Pulse Resp BP Pulse Ox 97.9 F 86 20 114/67 96 04/17/18 15:00 04/17/18 15:23 04/17/18 15:00 04/17/18 15:00 04/17/18 15:23 - Medications Medications: Current Medications Acetaminophen (Tylenol 325mg Tab) 650 mg PO Q4 PRN PRN Reason: Pain, Mild (1-3) Acetylcysteine (Acetylcysteine 20%) 4 ml INH RQ4 [facility] Last Admin: 04/17/18 16:17 Dose: Not Given Albuterol/Ipratropium (Duoneb 3 Mg/0.5 Mg (3 Ml) Ud) 3 ml INH RQ4 [facility] Last Admin: 04/17/18 16:17 Dose: 3 ml Aspirin (Ecotrin) 81 mg PO DAILY [facility] Last Admin: 04/17/18 09:39 Dose: 81 mg Docusate Sodium (Colace) 100 mg PO DAILY [facility] Last Admin: 04/17/18 09:39 Dose: 100 mg Enoxaparin Sodium (Lovenox) 40 mg SC DAILY [facility] Last Admin: 04/17/18 09:40 Dose: 40 mg Famotidine (Pepcid) 20 mg PO DAILY [facility] Last Admin: 04/17/18 09:39 Dose: 20 mg Glimepiride (Amaryl) 2 mg PO ACBD [facility] Last Admin: 04/17/18 08:30 Dose: 2 mg Guaifenesin (Mucinex La) 600 mg PO BID [facility] Last Admin: 04/17/18 09:39 Dose: 600 mg Guaifenesin (Robitussin) 200 mg PO Q6H PRN PRN Reason: Cough and congestion Last Admin: 04/17/18 09:39 Dose: 200 mg Insulin Human Regular (Novolin R) 0 unit SC [facility]; Protocol Last Admin: 04/17/18 11:42 Dose: Not Given Losartan Potassium (Cozaar) 50 mg PO DAILY [facility] Last Admin: 04/17/18 09:39 Dose: 50 mg Methylprednisolone (Solu-Medrol) 40 mg IVP Q12 [facility] Last Admin: 04/17/18 09:40 Dose: 40 mg Montelukast Sodium (Singulair) 10 mg PO DAILY [facility] Last Admin: 04/17/18 09:39 Dose: 10 mg Rosuvastatin Calcium (Crestor) 5 mg PO HS [facility] Last Admin: 04/16/18 22:18 Dose: 5 mg - Labs Labs: 04/15/18 14:17 04/15/18 14:17 Assessment and Plan (1) COPD exacerbation Status: Acute
--- NOTE | 2018-04-17 20:39 | CP.PCM.PN ---
Subjective - Date & Time of Evaluation Date of Evaluation: 04/17/18 Time of Evaluation: 11:15 - Subjective Subjective: Patient seen and evaluated No cardiac events noted Review Of Systems Except As Marked, All Systems Reviewed And Found Negative. Constitutional: Negative for: Fever, Chills, Sweats Eyes: Negative for: Vision Change Cardiovascular: Negative for: Chest Pain, Palpitations Respiratory: Positive for: Cough, Shortness of Breath Gastrointestinal: Positive for: Abdominal Pain (when coughing). Negative for: Nausea, Vomiting, Diarrhea Neurological: Negative for: Weakness, Headache, Dizziness Physical Exam - Physical Exam Additional Physical Exam Comments: Constitutional: No acute distress. Head: Normocephalic. Atraumatic. Eyes: PERRL. ENT: Moist mucous membranes. Neck: Supple. Cardiovascular: Tachycardic. Radial pulse 2+ bilaterally. Chest: No tenderness. Respiratory: Clear to auscultation bilaterally. GI: Soft. Nontender. Nondistended. Back: No CVA tenderness. Musculoskeletal: No tenderness or swelling of extremities. Skin: No rash. Neurologic: Alert, no focal deficit. Assessment & Plan - Assessment and Plan (Free Text) Assessment: 1. Shortness of breath Likely secondary to Pulmonary cause. Unlikely origin is Cardiac in nature. Medically optimize patient Troponin(-) BNP 97 on admission Chest/abdomen/pelvis ct: -Emphysematous changes. Bibasilar atelectasis.Hypoattenuation of the liver compatible with hepatic stea tosis. Extensive diverticulosis without CT evidence of acute diverticulitis. Small fat containing bilateral inguinal hernias.Bilateral L5 spondylolysis. -Stress test normal Medications: Duoneb 3ml INH RQ4 [facility] Solu-medrol 40mg IV Q12 [facility] Singulair 10mg PO Daily [facility] Azithromycin 500mg IVPB Q24 [facility] Ceftriaxone 1gm IVPB Daily [facility] Mucinex 600mg PO BID 2. DM -Amaryl 2mg PO ACBD [facility] -ISS -Aspirin 81mg po Daily 3.Hyperlipidemia -Crestor 5mg PO HS [facility] 4.Hypertension -Cozaar 100mg PO Daily PPX -Lovenox -Pepcid Moderate CAD/Medical management Objective - Vital Signs/Intake and Output Vital Signs (last 24 hours): Temp Pulse Resp BP Pulse Ox 97.9 F 86 20 114/67 96 04/17/18 15:00 04/17/18 15:23 04/17/18 15:00 04/17/18 15:00 04/17/18 15:23 - Medications Medications: Current Medications Acetaminophen (Tylenol 325mg Tab) 650 mg PO Q4 PRN PRN Reason: Pain, Mild (1-3) Acetylcysteine (Acetylcysteine 20%) 4 ml INH RQ4 [facility] Last Admin: 04/17/18 19:38 Dose: Not Given Albuterol/Ipratropium (Duoneb 3 Mg/0.5 Mg (3 Ml) Ud) 3 ml INH RQ4 [facility] Last Admin: 04/17/18 19:39 Dose: 3 ml Aspirin (Ecotrin) 81 mg PO DAILY [facility] Last Admin: 04/17/18 09:39 Dose: 81 mg Docusate Sodium (Colace) 100 mg PO DAILY [facility] Last Admin: 04/17/18 09:39 Dose: 100 mg Enoxaparin Sodium (Lovenox) 40 mg SC DAILY [facility] Last Admin: 04/17/18 09:40 Dose: 40 mg Famotidine (Pepcid) 20 mg PO DAILY [facility] Last Admin: 04/17/18 09:39 Dose: 20 mg Glimepiride (Amaryl) 2 mg PO ACBD [facility] Last Admin: 04/17/18 18:00 Dose: 2 mg Guaifenesin (Mucinex La) 600 mg PO BID [facility] Last Admin: 04/17/18 18:17 Dose: 600 mg Guaifenesin (Robitussin) 200 mg PO Q6H PRN PRN Reason: Cough and congestion Last Admin: 04/17/18 09:39 Dose: 200 mg Insulin Human Regular (Novolin R) 0 unit SC [facility]; Protocol Last Admin: 04/17/18 18:00 Dose: 6 unit Losartan Potassium (Cozaar) 50 mg PO DAILY [facility] Last Admin: 04/17/18 09:39 Dose: 50 mg Methylprednisolone (Solu-Medrol) 40 mg IVP Q12 [facility] Last Admin: 04/17/18 09:40 Dose: 40 mg Montelukast Sodium (Singulair) 10 mg PO DAILY [facility] Last Admin: 04/17/18 09:39 Dose: 10 mg Rosuvastatin Calcium (Crestor) 5 mg PO HS [facility] Last Admin: 04/16/18 22:18 Dose: 5 mg - Labs Labs: 04/15/18 14:17 04/15/18 14:17
[2018-04-18 00:57] VITALS: O2SAT 97
--- NOTE | 2018-04-18 02:18 | PN ---
DATE: 04/18/2018 SUBJECTIVE: The patient is feeling better. Less cough. Less shortness of breath. Less wheezing. PHYSICAL EXAMINATION: VITAL SIGNS: Blood pressure is 114/67, pulse 95, respiratory rate 20, temperature 97.9. LUNGS: Bilaterally decreased air entry. Positive rhonchi. CARDIOVASCULAR: S1, S2, regular. ABDOMEN: Soft. ASSESSMENT: 1. Exacerbation of chronic obstructive pulmonary disease. 2. Hypertension. PLAN: Continue Solu-Medrol, oxygen nebulizer. Monitor the patient. Bob Bravo MD
[2018-04-18] MEDS: Acetylcysteine 20% Inhal Soln (4ml) INH SCH ×3 (04:13→11:25)
[2018-04-18] MEDS: Albuterol-Ipratrop 3 mg / 0.5 (3 ml) UD INH SCH ×3 (04:13→11:24)
[2018-04-18] MEDS: (Novolin R) Insulin Human Regular 100 units/ml vial SC SCH ×2 (08:13→12:04)
[2018-04-18 09:03] VITALS: BP 111/73; TEMP 97.7
--- NOTE | 2018-04-18 09:43 | CARD ---
APPROVED REPORT Date of service: 04/15/2018 EKG Measurement Heart [id number] <Conclusion> Sinus tachycardia T wave abnormality, consider inferior ischemia Abnormal ECG
[2018-04-18] MEDS: guaiFENesin 600 mg ER Tab PO SCH (10:16)
[2018-04-18] MEDS: MethylPREDNISolone 40 mg Vial IVP SCH (10:16)
[2018-04-18] MEDS: Enoxaparin 40 mg Syringe SC SCH (10:16)
[2018-04-18] MEDS ORDERED: Amoxicillin-Clav 875-125 mg Tab PO ONE (10:30)
--- NOTE | 2018-04-18 10:35 | CP.PCM.PN ---
Subjective - Date & Time of Evaluation Date of Evaluation: 04/18/18 Time of Evaluation: 10:35 Objective - Vital Signs/Intake and Output Vital Signs (last 24 hours): Temp Pulse Resp BP Pulse Ox 97.7 F 90 20 111/73 97 04/18/18 07:30 04/18/18 07:30 04/18/18 07:30 04/18/18 07:30 04/18/18 07:30 - Medications Medications: Current Medications Acetaminophen (Tylenol 325mg Tab) 650 mg PO Q4 PRN PRN Reason: Pain, Mild (1-3) Acetylcysteine (Acetylcysteine 20%) 4 ml INH RQ4 [facility] Last Admin: 04/18/18 04:13 Dose: Not Given Albuterol/Ipratropium (Duoneb 3 Mg/0.5 Mg (3 Ml) Ud) 3 ml INH RQ4 [facility] Last Admin: 04/18/18 04:13 Dose: 3 ml Aspirin (Ecotrin) 81 mg PO DAILY [facility] Last Admin: 04/18/18 10:15 Dose: 81 mg Docusate Sodium (Colace) 100 mg PO DAILY [facility] Last Admin: 04/18/18 10:16 Dose: 100 mg Enoxaparin Sodium (Lovenox) 40 mg SC DAILY [facility] Last Admin: 04/18/18 10:16 Dose: 40 mg Famotidine (Pepcid) 20 mg PO DAILY [facility] Last Admin: 04/18/18 10:15 Dose: 20 mg Glimepiride (Amaryl) 2 mg PO ACBD [facility] Last Admin: 04/18/18 08:13 Dose: 2 mg Guaifenesin (Mucinex La) 600 mg PO BID [facility] Last Admin: 04/18/18 10:16 Dose: 600 mg Guaifenesin (Robitussin) 200 mg PO Q6H PRN PRN Reason: Cough and congestion Last Admin: 04/17/18 09:39 Dose: 200 mg Insulin Human Regular (Novolin R) 0 unit SC [facility]; Protocol Last Admin: 04/18/18 08:13 Dose: 4 unit Losartan Potassium (Cozaar) 50 mg PO DAILY [facility] Last Admin: 04/18/18 10:15 Dose: 50 mg Methylprednisolone (Solu-Medrol) 40 mg IVP Q12 [facility] Last Admin: 04/18/18 10:16 Dose: 40 mg Montelukast Sodium (Singulair) 10 mg PO DAILY [facility] Last Admin: 04/18/18 10:15 Dose: 10 mg Rosuvastatin Calcium (Crestor) 5 mg PO [facility] Last Admin: 04/17/18 22:21 Dose: 5 mg - Labs Labs: 04/15/18 14:17 04/15/18 14:17 Assessment and Plan - Assessment and Plan (Free Text) Assessment: FOLLOW UP WITH DR IRIZARRY IN HIS OFFICE -----CALL FOR APPOINTMENT FOLLOW UP WITH DR YEBOAH IN HIS OFFICE ----CALL FOR APPOINTMENT CONTINUE HOME MEDICATION NEW PRESCRIPTION GIVEN BY PMD IN THE CHART ACTIVITY TOLERATED CALL DR IRIZARRY OR GO TO THE EMERGENCY ROOM IF SYMPTOM RETURN OR WORSENING
[2018-04-18 10:42] VITALS: PULSE 87
--- NOTE | 2018-04-18 20:26 | CP.PCM.DIS ---
Provider - Provider Date of Admission: 04/15/18 17:19 Attending physician: Bob Bravo MD Consults: 04/15/18 21:49 Cardiology Consult Routine Comment: Consulting Provider: Raymundo Koch Consulting Physician: Raymundo Koch Reason for Consult: Chest Pain/SOB Pulmonology Consult Routine Comment: Consulting Provider: Romero Palomino Consulting Physician: Romero Palomino Reason for Consult: COPD exacerbation Time Spent in preparation of Discharge (in minutes): 30 Hospital Course - Lab Results Lab Results: Most Recent Lab Values WBC 12.2 K/uL (4.8-10.8) H 04/15/18 14:17 RBC 5.11 Mil/uL (4.40-5.90) 04/15/18 14:17 Hgb 12.8 g/dL (12.0-18.0) 04/15/18 14:17 Hct 41.9 % (35.0-51.0) 04/15/18 14:17 MCV 82.0 fL (80.0-94.0) 04/15/18 14:17 MCH 25.0 pg (27.0-31.0) L 04/15/18 14:17 MCHC 30.5 g/dL (33.0-37.0) L 04/15/18 14:17 RDW 18.0 % (11.5-14.5) H 04/15/18 14:17 Plt Count 322 K/uL (130-400) 04/15/18 14:17 MPV 8.3 fL (7.2-11.7) 04/15/18 14:17 Neut % (Auto) 80.6 % (50.0-75.0) H 04/15/18 14:17 Lymph % (Auto) 11.7 % (20.0-40.0) L 04/15/18 14:17 Luce % (Auto) 6.4 % (0.0-10.0) 04/15/18 14:17 Eos % (Auto) 0.3 % (0.0-4.0) 04/15/18 14:17 Baso % (Auto) 1.0 % (0.0-2.0) 04/15/18 14:17 Neut # (Auto) 9.9 K/uL (1.8-7.0) H 04/15/18 14:17 Lymph # (Auto) 1.4 K/uL (1.0-4.3) 04/15/18 14:17 Luce # (Auto) 0.8 K/uL (0.0-0.8) 04/15/18 14:17 Eos # (Auto) 0.0 K/uL (0.0-0.7) 04/15/18 14:17 Baso # (Auto) 0.1 K/uL (0.0-0.2) 04/15/18 14:17 Sodium 138 mmol/L (132-148) 04/15/18 14:17 Potassium 4.3 mmol/L (3.6-5.2) 04/15/18 14:17 Chloride 98 mmol/L (98-107) 04/15/18 14:17 Carbon Dioxide 31 mmol/L (22-30) H 04/15/18 14:17 Anion Gap 13 (10-20) 04/15/18 14:17 BUN 18 mg/dL (9-20) 04/15/18 14:17 Creatinine 1.1 mg/dL (0.8-1.5) 04/15/18 14:17 Est GFR ( Amer) > 60 04/15/18 14:17 Est GFR (Non-Af Amer) > 60 04/15/18 14:17 POC Glucose (mg/dL) 263 mg/dL (65-110) H 04/18/18 06:23 Random Glucose 86 mg/dL (75-110) 04/15/18 14:17 Calcium 9.5 mg/dl (8.6-10.4) 04/15/18 14:17 Total Bilirubin 0.8 mg/dL (0.2-1.3) 04/15/18 14:17 AST 28 U/L (17-59) 04/15/18 14:17 ALT 54 U/L (21-72) 04/15/18 14:17 Alkaline Phosphatase 62 U/L (38-126) 04/15/18 14:17 Total Creatine Kinase 79 U/L (55-170) 04/15/18 14:17 CK-MB (Mass) 1.39 ng/mL (0.0-3.38) 04/15/18 14:17 Troponin I < 0.0120 ng/mL (0.00-0.120) 04/15/18 14:17 NT-Pro-B Natriuret Pep 97.3 pg/mL (0-900) 04/15/18 14:17 Total Protein 7.1 g/dL (6.3-8.3) 04/15/18 14:17 Albumin 4.2 g/dL (3.5-5.0) 04/15/18 14:17 Globulin 2.9 gm/dL (2.2-3.9) 04/15/18 14:17 Albumin/Globulin Ratio 1.4 (1.0-2.1) 04/15/18 14:17 Influenza Typ A,B (EIA) Negative for flu a/b (NEGATIVE) 04/15/18 15:13 Discharge Exam - Head Exam Head Exam: ATRAUMATIC, NORMOCEPHALIC Discharge Plan - Follow Up Plan Condition: FAIR Disposition: HOME/ ROUTINE Instructions: Chronic Bronchitis, Chronic Bronchitis (DC), Exacerbation of COPD (DC), Amoxicillin and Clavulanate, Guaifenesin, Prednisone Additional Instructions: FOLLOW UP WITH DR BRAVO IN HIS OFFICE -----CALL FOR APPOINTMENT FOLLOW UP WITH DR PALOMINO IN HIS OFFICE ----CALL FOR APPOINTMENT CONTINUE HOME MEDICATION NEW PRESCRIPTION GIVEN BY PMD IN THE CHART ACTIVITY TOLERATED CALL DR BRAVO OR GO TO THE EMERGENCY ROOM IF SYMPTOM RETURN OR WORSENING Referrals: Romero Palomino MD [Staff Provider] - Raymundo Koch MD [Staff Provider] - Bob Bravo MD [Staff Provider] -
--- NOTE | 2018-04-19 01:24 | DS ---
DISCHARGE DIAGNOSES: 1. Acute exacerbation of chronic obstructive pulmonary disease. 2. Tracheobronchitis. 3. Hypertension. HISTORY OF PRESENT ILLNESS: This is a 72-year-old male with history of hypertension and COPD. He was recently discharged from [facility], [place]. He developed recurrent thick yellow sputum production, sore throat, fever, chills, and rigors. Along with that, he was coughing and wheezing. He came to emergency room, and he was hospitalized. He denies any fever. He denies any nausea, vomiting, or diarrhea. He denies any polyuria, polydipsia, or polyphagia. The patient was admitted to the floor, started on Solu-Medrol, oxygen nebulizer, and then, he has been placed on antibiotics and he is being discharged. He is stable upon discharge. PHYSICAL EXAMINATION: VITAL SIGNS: Blood pressure 111/73, pulse 90, respiratory rate 20, and temperature 97.7. LUNGS: Decreased air entry. PLAN: Discharge the patient. Bob Bravo MD
== END 2018-04-18 12:46 | disposition home or self-care (01) ==
LOC: C.ER 13:17 → C.9E 17:19 → C.6T 20:46
PROVIDERS: ADMIT Internal Medicine; ATTEND Internal Medicine
DX: J44.1 Chronic obstructive pulmonary disease with (acute) exacerbation (principal); I50.9 Heart failure, unspecified; I11.0 Hypertensive heart disease with heart failure; E11.9 Type 2 diabetes mellitus without complications; E03.9 Hypothyroidism, unspecified; E78.00 Pure hypercholesterolemia, unspecified; Z87.891 Personal history of nicotine dependence; E78.5 Hyperlipidemia, unspecified; J98.11 Atelectasis; K40.20 Bilateral inguinal hernia, without obstruction or gangrene, not specified as recurrent; K57.90 Diverticulosis of intestine, part unspecified, without perforation or abscess without bleeding; K76.0 Fatty (change of) liver, not elsewhere classified; M43.06 Spondylolysis, lumbar region
CPT/HCPCS: 71046; 80053; 82550; 82553; 82948; 83880; 84484; 85025; 87804; 93005; 94640; 94760; 96374; 97162; 97530; 99285; G0378; G8978; G8979; J1650; J2920

== ENCOUNTER 2018-05-12 17:37 | Emergency (ER) | payer MEDICARE ==
[2018-05-12 17:43] VITALS: BMI 29.7
[2018-05-12 17:46] VITALS: TEMP 98.5; O2SAT 97
[2018-05-12 18:43] LABS: SQUAMOUS EPITHIAL < 1 /hpf (0-5); URINE BACTERIA MOD (<OCC); URINE BILIRUBIN NEGATIVE (NEGATIVE); URINE BLOOD NEGATIVE (NEGATIVE); URINE CLARITY Clear (Clear); URINE COLOR Yellow (YELLOW); URINE GLUCOSE (UA) NORMAL (Normal); URINE LEUKOCYTE ESTERASE 1+ Leu/uL (Negative); URINE PROTEIN NEGATIVE (NEGATIVE); URINE UROBILINOGEN NORMAL mg/dL (0.2-1.0)
[2018-05-12 19:31] VITALS: BP 119/78; PULSE 97; RESP 16
--- NOTE | 2018-05-12 19:49 | C.PDOC ---
History Of Present Illness 72 year old male presents to the ED c/o urinary retention for the last few days, Patient was recently treated for UTI with cipro for the past week and now using Bcatrim PO. Patient denies prior history of urinary retention, fever, chills, nausea, vomit, diarrhea. Time Seen by Provider: 05/12/18 18:12 Chief Complaint (Nursing): Male Genitourinary History Per: Patient History/Exam Limitations: no limitations Onset/Duration Of Symptoms: Days Current Symptoms Are (Timing): Still Present Quality Of Discomfort: "Pain" Associated Symptoms: Urinary Symptoms. denies: Nausea, Vomiting, Diarrhea Recent travel outside of the [place]: No Additional History Per: Patient Past Medical History Reviewed: Historical Data, Nursing Documentation, Vital Signs Vital Signs: Last Vital Signs Temp 98.5 F 05/12/18 17:43 Pulse 107 H 05/12/18 17:43 Resp 20 05/12/18 17:43 BP 127/77 05/12/18 18:15 Pulse Ox 97 05/12/18 17:43 - Medical History PMH: Anxiety, Asthma, Bronchitis, CHF, COPD, Diabetes, Gastritis, HTN, Hypercholesterolemia Denies: Hypothyroidism, Chronic Kidney Disease Surgical History: Endoscopy Denies: Coronary Stent - [facility] Procedures ASSISTANCE WITH RESPIRATORY VENTILATION, 24-96 HRS, CPAP (02/23/15) CORONAR ARTERIOGR-2 CATH (12/28/12) FLUOROSCOPY OF MULT COR ART USING L OSM CONTRAST (03/28/18) LEFT HEART CARDIAC CATH (12/28/12) LT HEART ANGIOCARDIOGRAM (12/28/12) MEASURE OF CARDIAC SAMPL & PRESSURE, L HEART, PERC APPROACH (03/28/18) NEBULIZER THERAPY (02/17/13) NON-INVASIVE MECHANICAL VENTILATION (10/25/14) Family History: States: Unknown Family Hx - Social History Hx Tobacco Use: Yes Hx Alcohol Use: No Hx Substance Use: No - Immunization History Hx Tetanus Toxoid Vaccination: Yes Hx Influenza Vaccination: Yes Hx Pneumococcal Vaccination: Yes Review Of Systems Constitutional: Negative for: Fever, Chills Cardiovascular: Negative for: Chest Pain, Palpitations Respiratory: Negative for: Shortness of Breath Gastrointestinal: Positive for: Abdominal Pain. Negative for: Nausea, Vomiting, Diarrhea Genitourinary: Positive for: Other (urinary retention). Negative for: Dysuria, Hematuria Musculoskeletal: Negative for: Back Pain Skin: Negative for: Rash Neurological: Negative for: Weakness, Numbness Physical Exam - Physical Exam Appears: Non-toxic, No Acute Distress, Other (obese male ) Skin: Normal Color, Warm, Dry Head: Atraumatic, Normacephalic Eye(s): bilateral: Normal Inspection Oral Mucosa: Moist Neck: Normal ROM, Supple Chest: Symmetrical Cardiovascular: Rhythm Regular Respiratory: Normal Breath Sounds, No Rales, No Rhonchi, No Wheezing Gastrointestinal/Abdominal: Soft, Tenderness (suprapubic), No Guarding, No Rebound Extremity: Normal ROM, No Tenderness, No Swelling Neurological/Psych: Oriented x3, Normal Speech, Normal Cognition Gait: Steady ED Course And Treatment - Laboratory Results Lab Results: Urine Color Yellow (YELLOW) 05/12/18 18:30 Urine Clarity Clear (Clear) 05/12/18 18:30 Urine pH 7.0 (5.0-8.0) 05/12/18 18:30 Ur Specific Ewing 1.011 (1.003-1.030) 05/12/18 18:30 Urine Protein Negative mg/dL (NEGATIVE) 05/12/18 18:30 Urine Glucose (UA) Normal mg/dL (Normal) 05/12/18 18:30 Urine Ketones Negative mg/dL (NEGATIVE) 05/12/18 18:30 Urine Blood Negative (NEGATIVE) 05/12/18 18:30 Urine Nitrate Positive (NEGATIVE) H 05/12/18 18:30 Urine Bilirubin Negative (NEGATIVE) 05/12/18 18:30 Urine Urobilinogen Normal mg/dL (0.2-1.0) 05/12/18 18:30 Ur Leukocyte Esterase 1+ Sonya/uL (Negative) H 05/12/18 18:30 Urine WBC (Auto) 32 /hpf (0-5) H 05/12/18 18:30 Urine RBC (Auto) 6 /hpf (0-3) H 05/12/18 18:30 Ur Squamous Epith Cells < 1 /hpf (0-5) 05/12/18 18:30 Urine Bacteria Mod (<OCC) H 05/12/18 18:30 Lab Interpretation: Abnormal (UA 32 WBC's) O2 Sat by Pulse Oximetry: 97 (ON RA) Pulse Ox Interpretation: Normal Progress Note: helton catheter for 700+ cc's Reevaluation Time: 19:50 Reassessment Condition: Improved - Physician Consult Information Outcome Of Conversation: 193: d/w Dr. Bravo- PMD- recommends f/u with Dr. Cast Medical Decision Making Medical Decision Making: Plan: * Flomax 0.4 mg PO * Tramadol 50 mg PO * Urine culture * UA Baldder scan showed > 750 cc in the bladder, helton placed and > 750 cc of urine voided, patient much improved. recent mild UTI, failed Cipro and presently on Bactrim, now with urinary retention for 700 cc's. d/c with leg bag and start Flomax, f/u with Dr. Cast Disposition Doctor Will See Patient In The: Office Counseled Patient/Family Regarding: Studies Performed, Diagnosis - Disposition Referrals: [facility] [Outside] [employer] [facility] [Outside] [facility] [Outside] Bob Bravo MD [Staff Provider] - Dinh Erickson MD [Staff Provider] - Disposition: HOME/ ROUTINE Disposition Time: 19:53 Condition: GOOD Additional Instructions: keep leg bag in place Call to make follow-up appointment with Dr. Erickson- Urologist (referred by Dr. Bravo) Take Flomax 0.4 mg daily- helps to shrink size of prostate Continue Bactrim (antibiotic) twice a day as previously prescribed- continue until completed. Prescriptions: Tamsulosin [Flomax] 0.4 mg PO DAILY #30 cap Instructions: Helton Catheter, Male Forms: [employer] ([place]) - Clinical Impression Clinical Impression: Urinary retention - Scribe Statement The provider has reviewed the documentation as recorded by the Scribe Asael Rodríguez All medical record entries made by the Scribe were at my direction and personally dictated by me. I have reviewed the chart and agree that the record accurately reflects my personal performance of the history, physical exam, medical decision making, and the department course for this patient. I have also personally directed, reviewed, and agree with the discharge instructions and disposition.
== END 2018-05-12 20:34 | disposition home or self-care (01) ==
LOC: C.ER 17:37
DX: R33.9 Retention of urine, unspecified (principal); E11.9 Type 2 diabetes mellitus without complications; E78.00 Pure hypercholesterolemia, unspecified; I50.9 Heart failure, unspecified; J44.9 Chronic obstructive pulmonary disease, unspecified; I10 Essential (primary) hypertension; Z72.0 Tobacco use

== ENCOUNTER 2018-05-20 10:54 | Outpatient (CLI) | payer MEDICARE | END 2018-05-20 10:55 | disposition home or self-care (01) | LOC: C.RADH 10:54 ==

== ENCOUNTER 2018-06-06 11:41 | Day surgery (SDC) | payer MEDICARE ==
--- NOTE | 2018-06-06 13:47 | PCM.SURG1 ---
Surgeon's Initial Post Op Note - Surgeon's Notes Surgeon: Daisha Geotechnician: marleen Type of Anesthesia: General LMA Anesthesia Administered By: Daisha Pre-Operative Diagnosis: Hx BT Operative Findings: BT medium Post-Operative Diagnosis: BT Medium Operation Performed: TURBT Medium Specimen/Specimens Removed: BT Estimated Blood Loss: EBL {In ML}: 0 Blood Products Given: N/A Drains Used: No Drains Post-Op Condition: Good Date of Surgery/Procedure: 06/06/18 Time of Surgery/Procedure: 13:46
[2018-06-06] MEDS ORDERED: Gentamicin 80 mg in 0.9% NS 160 MG/200 ML BAG IVPB ONE (14:06)
[2018-06-06] MEDS ORDERED: Lidocaine 2% Jelly (Uro-Jet) ONE (14:06)
[2018-06-06] MEDS ORDERED: Ciprofloxacin 400mg/200ml D5W 400 MG/200 ML BAG IVPB ONE (14:06)
[2018-06-06] MEDS ORDERED: Propofol 10 mg/ml Inj (20 ML) ONE (14:18)
[2018-06-06] MEDS ORDERED: Midazolam 2 MG/2 ML VIAL ONE (14:18)
[2018-06-06] MEDS ORDERED: Phenylephrine 10 mg/ml Inj ONE (14:53)
[2018-06-06] MEDS ORDERED: ePHEDrine 50 mg/ml Inj ONE (14:53)
[2018-06-06] MEDS ORDERED: Lidocaine Hydrochloride 5 ML INJ ONE (15:12)
--- NOTE | 2018-06-06 15:32 | PCM.SURG1 ---
Surgeon's Initial Post Op Note - Surgeon's Notes Surgeon: Daisha [place]ra [place]ta Roofer: MADHU Type of Anesthesia: General Endo Anesthesia Administered By: Staff Pre-Operative Diagnosis: BPH/Urinary Retention Operative Findings: same Post-Operative Diagnosis: same Operation Performed: TULAP Specimen/Specimens Removed: NA Estimated Blood Loss: EBL {In ML}: 0 Blood Products Given: N/A Drains Used: No Drains Post-Op Condition: Good Date of Surgery/Procedure: 06/06/18 Time of Surgery/Procedure: 15:32
[2018-06-06] MEDS: HYDROmorphone 0.5 mg/0.5 ml ISec IVP PRN ×2 (15:52→16:29)
[2018-06-06 17:14] VITALS: TEMP 97.8
[2018-06-06 17:58] VITALS: BP 119/64; PULSE 89; RESP 18; O2SAT 97
--- NOTE | 2018-06-07 01:22 | OP ---
PROCEDURE DATE: 06/06/2018 PREOPERATIVE DIAGNOSIS: Benign prostatic hypertrophy and acute urinary retention. POSTOPERATIVE DIAGNOSIS: Benign prostatic hypertrophy and acute urinary retention. PROCEDURE: Cystoscopy and transurethral laser ablation of the prostate. 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 DESCRIPTION OF PROCEDURE: As follows: The patient was asked to sign a detailed informed consent prior to the procedure. He was apprised of all risks, complications, and limitations of this procedure. He signed the consent and elected to accept the risks. He was brought into the room and a time-out was taken according to the rules and regulations of [facility]. The patient received prophylactic antibiotics and he was cystoscoped with a laser cystoscope. The cystoscopic findings confirmed obstruction due to BPH with bladder outlet obstruction and compensatory tuberculation of the bladder and diverticulum. The laser resectoscope was inserted within the sheath and the laser fiber within the resectoscope and the prostate was vaporized beginning at 11 o'clock and carried down to 6 o'clock from just distal to the bladder neck to just proximal to the verumontanum. The opposite side, the roof tissue, and the base tissue were all vaporized. There was also a median lobe, which was vaporized and carried to avoid injury to the ureteral orifices not occurred. There was excellent hemostasis and a #2 two-way 5 mL catheter was inserted and inflated with normal amount of saline. The patient tolerated the procedure very well and was sent to the recovery room in good condition. Kartik Ashton MD
== END 2018-06-06 17:48 | disposition home or self-care (01) ==
LOC: C.SDS 11:41
PROVIDERS: ATTEND Urology
DX: N40.1 Benign prostatic hyperplasia with lower urinary tract symptoms (principal); R33.8 Other retention of urine; I11.0 Hypertensive heart disease with heart failure; I50.9 Heart failure, unspecified; I25.10 Atherosclerotic heart disease of native coronary artery without angina pectoris; J44.9 Chronic obstructive pulmonary disease, unspecified; E78.5 Hyperlipidemia, unspecified
CPT/HCPCS: 52647; 82948; 93005; J0744; J1170; J1580